=== PATIENT | female | born 1955 | race Hispanic/Latino ===

== ENCOUNTER 2017-01-30 15:16 | Inpatient (IN) | payer OTHER ==
--- NOTE | 2017-01-30 17:20 | C.PDOC ---
History Of Present Illness Patient is a 61 year old female who presents to the ER with a complaint of discoloration of the third right toe and erythema to the dorsal of the right foot for the past 3 days that is worsening. Patient note she is a diabetic and denies any possible injury as the cause. Denies any fever, chills, or pain. Time Seen by Provider: 01/30/17 16:42 Chief Complaint (Nursing): Lower Extremity Problem/Injury History Per: Patient History/Exam Limitations: no limitations Onset/Duration Of Symptoms: Days (3 days) Current Symptoms Are (Timing): Still Present Past Medical History Reviewed: Historical Data, Nursing Documentation, Vital Signs Vital Signs: Last Vital Signs Temp 98.5 F 01/30/17 15:18 Pulse 85 01/30/17 15:18 Resp 17 01/30/17 15:18 BP 157/79 H 01/30/17 15:18 Pulse Ox 99 01/30/17 18:23 - Medical History PMH: HTN, Hyperlipidemia Family History: States: Unknown Family Hx - Social History Hx Alcohol Use: No Hx Substance Use: No - Immunization History Hx Tetanus Toxoid Vaccination: No Hx Influenza Vaccination: Yes Hx Pneumococcal Vaccination: No Review Of Systems Constitutional: Negative for: Fever, Chills Gastrointestinal: Negative for: Nausea, Vomiting Musculoskeletal: Positive for: Other (Erythema to the dorsal of right foot) Skin: Positive for: Other (discoloration of 3rd right toe) Physical Exam - Physical Exam Appears: Non-toxic, No Acute Distress Skin: Normal Color, Warm, Dry Head: Atraumatic, Normacephalic Eye(s): bilateral: Normal Inspection Oral Mucosa: Moist Chest: Symmetrical, No Deformity, No Tenderness Cardiovascular: Rhythm Regular, No Murmur Respiratory: Normal Breath Sounds, No Rales, No Rhonchi, No Wheezing Gastrointestinal/Abdominal: Soft, No Tenderness, No Guarding, No Rebound Extremity: Swelling (right foot on dorsal), Other (Erythema at base of toes, right 3rd toe swollen, purple, and skin peeling.) Neurological/Psych: Oriented x3, Normal Speech, Normal Cognition ED Course And Treatment - Laboratory Results Result Diagrams: 01/30/17 18:07 01/30/17 18:07 O2 Sat by Pulse Oximetry: 99 (Room air) Pulse Ox Interpretation: Normal Progress Note: Blood work, blood culture, labs, and x-ray of the right foot was ordered. IV fluids, Vancocin, and Zosyn were administered. Medical Decision Making Medical Decision Making: several calls made to podiatry resident; await reply. Discussed with Dr Melendez. will admit to her service. ; paging podiatry resident for consult. Disposition Discussed With .: Donna Melendez Doctor Will See Patient In The: Hospital - Disposition Disposition: HOME/ ROUTINE Disposition Time: 18:20 Condition: SERIOUS - Clinical Impression Clinical Impression: Diabetic foot ulcer associated with type 2 diabetes mellitus, Cellulitis of right foot - Scribe Statement The provider has reviewed the documentation as recorded by the Scribe Obie Zavaleta All medical record entries made by the Scribe were at my direction and personally dictated by me. I have reviewed the chart and agree that the record accurately reflects my personal performance of the history, physical exam, medical decision making, and the department course for this patient. I have also personally directed, reviewed, and agree with the discharge instructions and disposition. Decision To Admit - Pt Status Changed To: Hospital Disposition Of: Inpatient - Admit Certification Admit to Inpatient:: After my assessment, the patient will require hospitalization for at least two midnights. This is because of the severity of symptoms shown, intensity of services needed, and/or the medical risk in this patient being treated as an outpatient. - InPatient: Physician Admission Certification: I certify that this patient requires 2 or more midnights of care for the following reason:: antibitoic treamtent for diabetic foot ulcer - . Bed Request Type: Regular Admitting Physician: Donna Melendez Patient Diagnosis: Diabetic foot ulcer associated with type 2 diabetes mellitus, Cellulitis of right foot
[2017-01-30] MEDS ORDERED: Piperacillin/Tazobact 3.375 GM in Sodium Chloride 100 ML IVPB STA (17:24)
[2017-01-30] MEDS ORDERED: Piperacillin/Tazobact 3.375 gm 100 ML IVPB ONE (17:52)
[2017-01-30] MEDS ORDERED: Sodium Chloride 0.9% 1,000 ML ONE (17:52)
[2017-01-30 18:12] LABS: BASO # 0.1 K/uL (0.0-0.2); BASO % 0.7 % (0.0-2.0); EOS # 0.3 K/uL (0.0-0.7); EOS % 2.4 % (0.0-4.0); HEMATOCRIT 36.9 % (34.0-47.0); LYMPH # 1.4 K/uL (1.0-4.3); LYMPH % 11.9 % (20.0-40.0); MEAN CELL VOLUME 85.5 fL (81.0-99.0); MEAN CORPUSCULAR HEMOGLOBIN 28.3 pg (27.0-31.0); MEAN CORPUSCULAR HGB CONC 33.1 g/dL (33.0-37.0); MEAN PLATELET VOLUME 8.5 fL (7.2-11.7); MONO # 0.6 K/uL (0.0-0.8); MONO % 5.4 % (0.0-10.0); RED CELL DISTRIBUTION WIDTH 13.3 % (11.5-14.5); WHITE BLOOD COUNT 11.8 K/uL (4.8-10.8)
[2017-01-30] MEDS: Sodium Chloride 0.9% 1,000 ML IV SCH ×2 (18:15→19:30)
[2017-01-30 18:22] LABS: POTASSIUM 5.2 mmol/L (3.6-5.2)
[2017-01-30 18:24] LABS: BILIRUBIN,TOTAL 0.3 mg/dL (0.2-1.3)
[2017-01-30 18:25] LABS: ALB/GLOB RATIO 1.1 (1.0-2.1); CALCIUM 8.7 mg/dl (8.6-10.4); TOTAL PROTEIN 6.6 g/dL (6.3-8.3)
--- NOTE | 2017-01-30 18:38 | RAD ---
PROCEDURE: Right Foot Radiographs. HISTORY: 3rd toe infection COMPARISON: None available FINDINGS: BONES: Normal. No fracture. No osseous erosion or periosteal reaction. JOINTS: Mild hallux valgus. SOFT TISSUES: Normal. OTHER FINDINGS: None. IMPRESSION: No radiographic evidence of osteomyelitis l
--- NOTE | 2017-01-30 18:52 | CP.PCM.HP ---
History of Present Illness - History of Present Illness History of Present Illness: 61 y.o. with pmh IDDM2 Hypertension PADS lower Extremeties- S/p bypass right Cholesterol CRI came to ER due to pain swelling wound 3rd toe right foot. patient reports itchiness in the are for more than a week, she has been scratching it and skinbecame swollen red and that continue to worsen , patient did not sek medical help- In ER_ the toe 0]is reddish oozing and swollen, patient was admitted for further evaluation and management . patient denies fever, cough GI symptoms PMH as above patient history of uncontrolled DM- secondary to issues of compliance to diet and activity Surgical FEM pop bypass left leg Allergy NKDA Meds Novolog Lantus statin BP meds Present on Admission - Present on Admission Any Indicators Present on Admission: Yes History of DVT/PE: No History of Uncontrolled Diabetes: Yes Urinary Catheter: No Decubitus Ulcer Present: No Review of Systems - Constitutional Constitutional: absent: Chills, Fever, Weakness - EENT Eyes: absent: Change in Vision, Other Visual Disturbances Ears: absent: Ear Pain, Dizziness Nose/Mouth/Throat: absent: Epistaxis, Nasal Congestion, Sinus Pain, Odynophagia , Sore Throat - Breasts Breasts: absent: Pain, Skin Changes - Cardiovascular Cardiovascular: Leg Ulcers. absent: Chest Pain, Dyspnea, Syncope - Respiratory Respiratory: absent: Cough, Dyspnea, Chest Congestion - Gastrointestinal Gastrointestinal: absent: Abdominal Pain, Change in Bowel Habits, Heartburn, Vomiting - Genitourinary Genitourinary: absent: Difficulty Urinating, Dysuria, Urinary Frequency - Reproductive: Female Reproductive:Female: Post Menopausal - Menstruation Menstruation: Post Menopausal - Musculoskeletal Musculoskeletal: absent: Abnormal Gait, Deformity - Integumentary Integumentary: Skin Ulcer (right foot 3rd toe) - Neurological Neurological: absent: Abnormal Hearing, Abnormal Movements, Behavioral Changes, Convulsions - Psychiatric Psychiatric: absent: Behavioral Changes, Confusion, Depression - Endocrine Endocrine: absent: Polydipsia, Polyphagia, Polyuria - Hematologic/Lymphatic Hematologic: absent: Easy Bleeding, Easy Bruising Past Patient History - Infectious Disease Hx of Infectious Diseases: None - Past Social History Smoking Status: Never Smoked - CARDIAC Hx Hypertension: Yes Hx Peripheral Vascular Disease: Yes (PAD LE) - RENAL Hx Chronic Kidney Disease: Yes - ENDOCRINE/METABOLIC Hx Diabetes Mellitus Type 2: Yes - PSYCHIATRIC Hx Substance Use: No - SURGICAL HISTORY Hx Surgeries: Yes (FEM POP bypass left LE) Hx Femoral-Popliteal Bypass Graft: Yes - ANESTHESIA Hx Anesthesia: Yes Hx Anesthesia Reactions: No Meds Allergies/Adverse Reactions: Allergies Allergy/AdvReac Type Severity Reaction Status Date / Time No Known Allergies Allergy Verified 01/30/17 15:17 Physical Exam - Constitutional Appears: Well, Non-toxic - Head Exam Head Exam: ATRAUMATIC, NORMOCEPHALIC - Eye Exam Eye Exam: Normal appearance. absent: Nystagmus - ENT Exam ENT Exam: Mucous Membranes Moist - Neck Exam Neck exam: Positive for: Full Rom. Negative for: Tenderness - Respiratory Exam Respiratory Exam: Clear to Auscultation Bilateral, NORMAL BREATHING PATTERN - Cardiovascular Exam Cardiovascular Exam: REGULAR RHYTHM - GI/Abdominal Exam GI & Abdominal Exam: Normal Bowel Sounds, Soft. absent: Tenderness - Extremities Exam Extremities exam: Positive for: full ROM (with swelling of both feet witl mild edema, with red oozing sore 3rd toe right foot , with poor pulses ) - Back Exam Back exam: FULL ROM. absent: tenderness - Neurological Exam Neurological exam: Alert, Normal Gait, Oriented x3 - Psychiatric Exam Psychiatric exam: Normal Affect, Normal Mood - Skin Skin Exam: Intact (other than the 3rd toe right foot ), Normal Color Results - Vital Signs Recent Vital Signs: Last Vital Signs Temp 98.5 F 01/30/17 15:18 Pulse 85 01/30/17 15:18 Resp 17 01/30/17 15:18 BP 157/79 H 01/30/17 15:18 Pulse Ox 99 01/30/17 18:23 - Labs Result Diagrams: 01/30/17 18:07 01/30/17 18:07 Assessment & Plan - Assessment and Plan (Free Text) Assessment: Patient with PMH uncontrolled IDDM2 - Hypertension PAD s/p FemPOP left CRI admitted for wound infection 3rd toe right foot- with cellulitis, to rule out osteomyelitis will culture start antibiotic according to renal function podiatry consult doppler vascular eval CRI discussed with renal for further evaluation IDDM2- persistently uncontrolled -will do FS , will continue current doses and adjust acoordingly , will start IVF , heart healthy diet Hypertension continue meds and monitor DVT prophy;axis GI prophylaxis
[2017-01-30] MEDS ORDERED: (Lantus) Insulin Glargine, Recombinant SC SCH (22:00)
[2017-01-31 00:10] VITALS: RESP 20
[2017-01-31] MEDS: Piperacill/Tazo 2.25gm in Dex 50 ML IVPB SCH ×3 (01:03→21:41)
[2017-01-31] MEDS: Sodium Chloride 0.9% 1,000 ML IV SCH ×3 (06:08→18:45)
[2017-01-31 07:56] LABS: RBC URINE 6 /hpf (0-3); URINE BACTERIA MOD (<OCC); URINE BILIRUBIN NEGATIVE (NEGATIVE); URINE BLOOD NEGATIVE (NEGATIVE); URINE COLOR Yellow (YELLOW); URINE GLUCOSE (UA) 3+ mg/dL (Normal); URINE KETONE NEGATIVE (NEGATIVE); URINE LEUKOCYTE ESTERASE 2+ Leu/uL (Negative); URINE PROTEIN 2+ mg/dL (NEGATIVE); URINE UROBILINOGEN NORMAL mg/dL (0.2-1.0); WBC CLUMPS FEW /hpf; WBC URINE 117 /hpf (0-5)
[2017-01-31] MEDS: (Novolog) Insulin Aspart, Recombinant 100 u/ml 10 ml vial SC SCH ×2 (08:24→12:35)
--- NOTE | 2017-01-31 09:14 | US ---
PROCEDURE: Ultrasound of the Kidneys HISTORY: ckd for renal size COMPARISON: None available. TECHNIQUE: Sonogram of the kidneys. FINDINGS: RIGHT KIDNEY: Measures: 9.4 x 4.4 x 5.5 cm. Diffusely increased cortical echogenicity. Normal cortical thickness No stone, solid mass lesion or hydronephrosis visualized. LEFT KIDNEY: Measures: 11.1 x 4.4 x 4.5 cm. Diffusely increased cortical echogenicity. No stone, solid mass lesion or hydronephrosis visualized. OTHER FINDINGS: None. IMPRESSION: Diffusely increased renal cortical echogenicity bilaterally consistent with medical renal disease. Otherwise unremarkable.
--- NOTE | 2017-01-31 09:31 | CP.PCM.PN ---
Subjective - Date & Time of Evaluation Date of Evaluation: 01/31/17 Time of Evaluation: 10:00 - Subjective Subjective: patient seen, aware of condition, discussed current findings and management medications clarified patient has no complaints discussed with staff- renal doses of antibiotic PT on case Objective - Vital Signs/Intake and Output Vital Signs (last 24 hours): Temp Pulse Resp BP Pulse Ox 98.0 F 71 20 175/79 H 97 01/31/17 08:00 01/31/17 08:00 01/31/17 08:00 01/31/17 08:00 01/31/17 08:00 Intake and Output: 01/31/17 01/31/17 06:59 18:59 Intake Total 1612 Balance 1612 - Medications Medications: Current Medications Enoxaparin Sodium (Lovenox) 30 mg SC DAILY [facility] Sodium Chloride (Sodium Chloride 0.9%) 1,000 mls @ 100 mls/hr IV .Q10H [facility] Last Admin: 01/31/17 06:08 Dose: Not Given Sodium Chloride (Sodium Chloride 0.9%) 1,000 mls @ 84 mls/hr IV .[id number] [facility] Last Admin: 01/31/17 08:25 Dose: 84 mls/hr Vancomycin HCl 500 mg/ Sodium (Chloride) 100 mls @ 100 mls/hr IVPB Q12H [facility] Last Admin: 01/30/17 22:20 Dose: Not Given Piperacillin Sod/Tazobactam Sod (Zosyn 2.25 Gm Iv Premix) 50 mls @ 100 mls/hr IVPB Q8H [facility] Last Admin: 01/31/17 01:03 Dose: 100 mls/hr Insulin Aspart (Novolog) 60 unit SC ACB [facility] Last Admin: 01/31/17 08:24 Dose: 60 unit Insulin Aspart (Novolog) 54 unit SC ACL [facility] Insulin Glargine (Lantus) 45 unit SC HS [facility] Last Admin: 01/30/17 22:15 Dose: 45 units Losartan Potassium (Cozaar) 50 mg PO DAILY [facility] Rosuvastatin Calcium (Crestor) 10 mg PO HS [facility] Last Admin: 01/30/17 22:17 Dose: 10 mg - Constitutional Appears: Well, Non-toxic - Head Exam Head Exam: ATRAUMATIC, NORMOCEPHALIC - Eye Exam Eye Exam: absent: Nystagmus, Periorbital swelling - ENT Exam ENT Exam: Mucous Membranes Moist - Neck Exam Neck Exam: Full ROM. absent: Tenderness - Respiratory Exam Respiratory Exam: Clear to Ausculation Bilateral, NORMAL BREATHING PATTERN - Cardiovascular Exam Cardiovascular Exam: REGULAR RHYTHM - GI/Abdominal Exam GI & Abdominal Exam: Soft, Normal Bowel Sounds. absent: Tenderness - Extremities Exam Extremities Exam: Full ROM. absent: Pedal Edema (3rd toe right foot lesion is red, but no oozing,had dried up, pulses poor , sensory good ) - Back Exam Back Exam: NORMAL INSPECTION. absent: tenderness - Neurological Exam Neurological Exam: Alert, Awake, Normal Gait, Oriented x3 - Psychiatric Exam Psychiatric exam: Normal Affect, Normal Mood - Skin Skin Exam: Intact (except the 3rd toe lesion ), Normal Color Assessment and Plan - Assessment and Plan (Free Text) Assessment: Patient with IDDM2-persistently uncontrolled due to food and activity non complioance, still uncontrolled , will adjust meds,on heart healthy diet , Diabetic wound cellulitis possible OM- 3rd toe right foot with possible PADS on antibiotic- culture pending- study director consulted, discussion with vascular to invlove, wound care Hypertension not on goal- to adjust medications continue DVT prophylaxis GI prophylaxis PT
[2017-01-31] MEDS ORDERED: (Novolog) Insulin Aspart, Recombinant 100 u/ml 10 ml vial SC SCH (10:00)
[2017-01-31] MEDS: Enoxaparin 30 mg Syringe SC SCH (10:31)
--- NOTE | 2017-01-31 13:27 | NM ---
PROCEDURE: Three-phase bone scan HISTORY: Third toe infection COMPARISON: January 30, 2017. TECHNIQUE: Radionuclide dose: 24.2 Tc99m MDP Site of administration: Left upper extremity venous access Technique: Three-phase bone scan. FINDINGS: Flow component: Increased flow to the right foot, focally prominent 3rd digit right foot. Blood pool component: Accumulation of radionuclide distal tuft 3rd digit Delayed images at 3:00: Retention of radionuclide 3rd digit right foot. IMPRESSION: Positive 3 phase bone scan for acute osseous process distal tuft right 3rd digit.
--- NOTE | 2017-01-31 15:40 | VASCLAB ---
STUDY DESCRIPTION: HISTORY: pvd PRIORS: None. TECHNIQUE: Pulse volume recording waveforms and segmental pressures of bilateral lower extremities at multiple levels were obtained. Ankle Brachial Indices (ABIs) were calculated. Report prepared by DEBORAH White, RVT RIGHT LOWER EXTREMITY: * Brachial artery: Pressure - 166 mmHg. * High thigh: Pressure - Not optimally obtained. PVR waveform - Pulsatile * Low thigh: Pressure -Not optimally obtained. PVR waveform: Pulsatile * Calf: Pressure - 194 mmHg: Ratio - 1.17 PVR waveform: Pulsatile * Posterior tibial Artery: Pressure - 176 mmHg: Ratio - 1.06 PVR waveform: Pulsatile * Dorsalis pedis Artery: Pressure - 173 mmHg: Ratio - 1.03 PVR waveform: Pulsatile Ankle brachial index (SHON): 1.06 LEFT LOWER EXTREMITY: * Brachial artery: Pressure - 156 mmHg. * High thigh: Pressure - Not optimally obtained. PVR waveform - Pulsatile * Low thigh: Pressure - Not optimally obtained. PVR waveform: Pulsatile * Calf: Pressure - 199 mmHg: Ratio - 1.20 PVR waveform: Pulsatile * Posterior tibial Artery: Pressure - 185 mmHg: Ratio - 1.11 PVR waveform: Pulsatile * Dorsalis pedis Artery: Pressure - 179 mmHg: Ratio - 1.08 PVR waveform: Pulsatile Ankle brachial index (SHON): 1.11 OTHER FINDINGS: Right: None. Left: None. IMPRESSION: Right: There was no evidence of hemodynamically significant arterial insufficiency in the right lower extremity. Left: There was no evidence of hemodynamically significant arterial insufficiency in the left lower extremity.
[2017-01-31] MEDS: (Lantus) Insulin Glargine, Recombinant SC SCH (18:20)
--- NOTE | 2017-01-31 19:12 | CP.PCM.CON ---
History of Present Illness - History of Present Illness History of Present Illness: Vascular Surgery Consult Re: PVD, 3rd digit necrosis HPI: 61F presented to the ED C/O swelling, discoloration, and pain of the 3rd R toe and erythema to the dorsum of the R foot x3 days. Progressively worsening. Had itchiness x 1 week and was also scratching the area before this started. Reports she had the same thing on the other side which required sharp debridement. Denies any other trauma. No other c/o. No pain at this time, pt states swelling and erythema has gotten better as well. PMH: Uncontrolled DM, HTN, PAD, HLD, CKD PSH: LLE fem-pop bypass SH: No tobacco, EtOH or Drug use All: NKDA Meds: See MAR. Review of Systems - Review of Systems All systems: reviewed and no additional remarkable complaints except (as per HPI ) Past Patient History - Infectious Disease Hx of Infectious Diseases: None - Past Medical History & Family History Past Medical History?: Yes - Past Social History Smoking Status: Never Smoked - CARDIAC Hx Hypertension: Yes Hx Peripheral Vascular Disease: Yes (PAD LE) - RENAL Hx Chronic Kidney Disease: Yes - ENDOCRINE/METABOLIC Hx Diabetes Mellitus Type 2: Yes - MUSCULOSKELETAL/RHEUMATOLOGICAL Hx Falls: No - PSYCHIATRIC Hx Substance Use: No - SURGICAL HISTORY Hx Surgeries: Yes (FEM POP bypass left LE) Hx Femoral-Popliteal Bypass Graft: Yes - ANESTHESIA Hx Anesthesia: Yes Hx Anesthesia Reactions: No Meds Allergies/Adverse Reactions: Allergies Allergy/AdvReac Type Severity Reaction Status Date / Time No Known Allergies Allergy Verified 01/30/17 15:17 - Medications Medications: Current Medications Enoxaparin Sodium (Lovenox) 30 mg SC DAILY [facility] Last Admin: 01/31/17 10:31 Dose: 30 mg Sodium Chloride (Sodium Chloride 0.9%) 1,000 mls @ 100 mls/hr IV .Q10H [facility] Last Admin: 01/31/17 06:08 Dose: Not Given Sodium Chloride (Sodium Chloride 0.9%) 1,000 mls @ 84 mls/hr IV .[id number] [facility] Last Admin: 01/31/17 08:25 Dose: 84 mls/hr Piperacillin Sod/Tazobactam Sod (Zosyn 2.25 Gm Iv Premix) 50 mls @ 100 mls/hr IVPB Q8H [facility] Last Admin: 01/31/17 10:33 Dose: 100 mls/hr Vancomycin HCl 500 mg/ Sodium (Chloride) 100 mls @ 100 mls/hr IVPB TTS [facility] Insulin Aspart (Novolog) 60 unit SC ACB [facility] Last Admin: 01/31/17 08:24 Dose: 60 unit Insulin Aspart (Novolog) 54 unit SC ACL [facility] Last Admin: 01/31/17 12:35 Dose: Not Given Insulin Glargine (Lantus) 50 unit SC Q24H [facility] Losartan Potassium (Cozaar) 100 mg PO DAILY [facility] Pantoprazole Sodium (Protonix Ec Tab) 40 mg PO DAILY [facility] Rosuvastatin Calcium (Crestor) 10 mg PO HS [facility] Last Admin: 01/30/17 22:17 Dose: 10 mg Sodium Hypochlorite (Dakins Solution 0.125%) 1 appl TOP DAILY [facility] Physical Exam - Constitutional Appears: Non-toxic, No Acute Distress - Head Exam Head Exam: ATRAUMATIC, NORMOCEPHALIC - Eye Exam Eye Exam: EOMI. absent: Scleral icterus - ENT Exam ENT Exam: Mucous Membranes Moist Additional comments: Trachea midline - Respiratory Exam Respiratory Exam: NORMAL BREATHING PATTERN. absent: Respiratory Distress - Cardiovascular Exam Cardiovascular Exam: RRR. absent: Tachycardia - GI/Abdominal Exam GI & Abdominal Exam: Soft. absent: Distended, Tenderness - Extremities Exam Extremities exam: Positive for: pedal edema (b/l). Negative for: calf tenderness, tenderness Additional comments: R 3rd toe, necrotic tissue, mild erythema on dorsum - Back Exam Back exam: absent: CVA tenderness (L), CVA tenderness (R) - Neurological Exam Neurological exam: Alert, Oriented x3 - Psychiatric Exam Psychiatric exam: Normal Affect, Normal Mood - Skin Skin Exam: Dry, Warm Results - Vital Signs Recent Vital Signs: Last Vital Signs Temp 98.0 F 01/31/17 16:07 Pulse 72 01/31/17 16:07 Resp 20 01/31/17 16:07 BP 136/64 01/31/17 16:07 Pulse Ox 98 01/31/17 16:07 - Labs Result Diagrams: 01/30/17 18:07 01/30/17 18:07 Labs: Laboratory Results - last 24 hr 01/30/17 01/31/17 01/31/17 21:46 02:10 07:04 POC Glucose (mg/dL) 322 H 334 H 312 H Hemoglobin A1c Urine Color Urine Clarity Urine pH Ur Specific [place] Urine Protein Urine Glucose (UA) Urine Ketones Urine Blood Urine Nitrate Urine Bilirubin Urine Urobilinogen Ur Leukocyte Esterase Urine WBC (Auto) Urine RBC (Auto) Urine WBC Clumps (Auto) Ur Squamous Epith Cells Urine Bacteria Random Vancomycin NASIMA 6 Profile NASIMA Titer NASIMA Pattern Complement C3 Complement C4 Hep Bs Antigen Hep Bs Antibody Hep B Core IgM Ab Hepatitis C Antibody 01/31/17 01/31/17 01/31/17 07:17 07:29 10:00 POC Glucose (mg/dL) Hemoglobin A1c 8.5 H Urine Color Yellow Urine Clarity Hazy Urine pH 6.0 Ur Specific [place] 1.014 Urine Protein 2+ H Urine Glucose (UA) 3+ H Urine Ketones Negative Urine Blood Negative Urine Nitrate Positive H Urine Bilirubin Negative Urine Urobilinogen Normal Ur Leukocyte Esterase 2+ H Urine WBC (Auto) 117 H Urine RBC (Auto) 6 H Urine WBC Clumps (Auto) Few H Ur Squamous Epith Cells < 1 Urine Bacteria Mod H Random Vancomycin 9.68 NASIMA 6 Profile Positive H NASIMA Titer 1:80 H NASIMA Pattern Speckled H Complement C3 147.0 Complement C4 59.2 H Hep Bs Antigen Negative Hep Bs Antibody Negative Hep B Core IgM Ab Negative Hepatitis C Antibody Negative 01/31/17 11:12 POC Glucose (mg/dL) 99 Hemoglobin A1c Urine Color Urine Clarity Urine pH Ur Specific [place] Urine Protein Urine Glucose (UA) Urine Ketones Urine Blood Urine Nitrate Urine Bilirubin Urine Urobilinogen Ur Leukocyte Esterase Urine WBC (Auto) Urine RBC (Auto) Urine WBC Clumps (Auto) Ur Squamous Epith Cells Urine Bacteria Random Vancomycin NASIMA 6 Profile NASIMA Titer NASIM[place] Pattern Complement C3 Complement C4 Hep Bs Antigen Hep Bs Antibody Hep B Core IgM Ab Hepatitis C Antibody - Imaging and Cardiology Arterial US Status: Image reviewed by me, Report reviewed by me Assessment & Plan - Assessment and Plan (Free Text) Assessment: 61F with R 3rd toe necrosis Plan: Arterial duplex ordered Will F/U results May need debridement of toe eventually. D/W Dr. Reena Grant PGY3
--- NOTE | 2017-01-31 19:37 | CP.PCM.CON ---
History of Present Illness - History of Present Illness History of Present Illness: 61F presented to the ED C/O swelling, discoloration, and pain of the 3rd R toe and erythema to the dorsum of the R foot x3 days. Progressively worsening. Had itchiness x 1 week and was also scratching the area before this started. Reports she had the same thing on the other side which required sharp debridement. Denies any other trauma. PMH: Uncontrolled DM, HTN, PAD, HLD, CKD PSH: LLE fem-pop bypass SH: No tobacco, EtOH or Drug use All: NKDA Meds: See MAR. Review of Systems - Constitutional Constitutional: As Per HPI, Malaise - EENT Eyes: absent: As Per HPI, Blind Spots, Blurred Vision, Change in Vision, Decreased Night Vision, Diplopia, Discharge, Dry Eye, Exophthalmos, Floaters, Irritation, Itchy Eyes, Loss of Peripheral Vision, Pain, Photophobia, Requires Corrective Lenses, Sees Flashes, Spots in Vision, Tunnel Vision, Other Visual Disturbances, Loss of Vision, Other Ears: absent: As Per HPI, Decreased Hearing, Ear Discharge, Ear Pain, Tinnitus, Abnormal Hearing, Disequilibrium, Dizziness, Other Nose/Mouth/Throat: absent: As Per HPI, Epistaxis, Nasal Congestion, Nasal Discharge, Nasal Obstruction, Nasal Trauma, Nose Pain, Post Nasal Drip, Sinus Pain, Sinus Pressure, Bleeding Gums, Change in Voice, Dental Pain, Dry Mouth, Dysphagia, Halitosis, Hoarsness, Lip Swelling, Mouth Lesions, Mouth Pain, Odynophagia, Sore Throat, Throat Swelling, Tongue Swelling, Facial Pain, Neck Pain, Neck Mass, Other - Breasts Breasts: absent: As Per HPI, Change in Shape, Mass, Pain, Nipple Discharge, Nipple Inversion, Skin Changes, Swelling, Other - Cardiovascular Cardiovascular: absent: As Per HPI, Acrocyanosis, Chest Pain, Chest Pain at Rest , Chest Pain with Activity, Claudication, Diaphoresis, Dyspnea, Dyspnea on Exertion, Edema, Irregular Heart Rhythm, Pain Radiating to Arm/Neck/Jaw, Leg Edema, Leg Ulcers, Lightheadedness, Orthopnea, Palpitations, Paroxysmal Nocturnal Dyspnea, Pedal Edema, Radiating Pain, Rapid Heart Rate, Slow Heart Rate, Syncope, Other - Respiratory Respiratory: absent: As Per HPI, Cough, Dyspnea, Hemoptysis, Dyspnea on Exertion , Wheezing, Snoring, Stridor, Pain on Inspiration, Chest Congestion, Excessive Mucous Production, Change in Mucous Color, Pain with Coughing, Other - Gastrointestinal Gastrointestinal: absent: As Per HPI, Abdominal Pain, Belching, Bloating, Change in Bowel Habits, Change in Stool Character, Coffee Ground Emesis, Constipation, Cramping, Diarrhea, Dyspepsia, Dysphagia, Early Satiety, Excessive Flatus, Fecal Incontinence, Heartburn, Hematemesis, Hematochezia, Loose Stools, Melena, Nausea, Odynophagia, Temesmus, Vomiting, Other - Genitourinary Genitourinary: absent: As Per HPI, Change in Urinary Stream, Difficulty Urinating, Dysuria, Flank Pain, Hematuria, Pyuria, Nocturia, Urinary Incontinence, Urinary Frequency, Urinary Hesitance, Urinary Urgency, Voiding Freq/Small Amts, Freq UTI, Hx Renal/Bladder Calculi, Hx /Renal Surgery, Bladder Distension, Other - Reproductive: Female Reproductive:Female: absent: As Per HPI, Amenorrhea, Amenorrhea/ Control, Currently Menstual, Cycle <21 Days, Cycle >35 Days, Cycle Variable, Menses 1-7 Days, Menses >/= 8 Days, Menses Variable, Cycle > 4 Weeks Between, No Menses for 6 Months, Heavy Menses, Light Menses, Normal Menses, Spotting Between Cycles , S/P Hysterectomy, Menopausal, Post Menopausal, Premenarche, Abnormal Vaginal Bleeding, Dysmenorrhea, Dyspareunia, Genital Lesions, Genital Pruritis, Pelvic Pain, Prolapse Symptoms, Sexual Dysfunction, Vaginal Discharge, Vaginal Dryness , Vaginal Odor, Vaginal Pruritis, Other - Menstruation Menstruation: absent: As Per HPI, Amenorrhea, Amenorrhea/ Control, Currently Menstual, Cycle <21 Days, Cycle >35 Days, Cycle Variable, Menses 1-7 Days, Menses >/= 8 Days, Menses Variable, Cycle > 4 Weeks Between, No Menses for 6 Months, Heavy Menses, Light Menses, Normal Menses, Spotting Between Cycles , S/P Hysterectomy, Menopausal, Post Menopausal, Premenarche, Abnormal Vaginal Bleeding, Dysmenorrhea, Other - Musculoskeletal Musculoskeletal: As Per HPI - Integumentary Integumentary: As Per HPI, Skin Pain, Wounds - Neurological Neurological: Numbness - Psychiatric Psychiatric: absent: As Per HPI, Abnormal Sleep Pattern, Anhedonia, Anxiety, Auditory Hallucinations, Behavioral Changes, Change in Appetite, Change in Libido, Confusion, Depression, Difficulty Concentrating, Hallucinations, Homicidal Ideation, Hopelessness, Irritability, Memory Loss, Mood Swings, Panic Attacks, Paranoia, Suicidal Ideation, Visual Hallucinations, Tactile Hallucinations, Other - Endocrine Endocrine: absent: As Per HPI, Change in Body Appearance, Change in Libido, Cold Intolorance, Deepening of Voice, Excessive Sweating, Fatigue, Flushing, Heat Intolorance, Increase in Ring/Shoe/Hat Size, Palpitations, Polydipsia, Polyphagia, Polyuria, Other - Hematologic/Lymphatic Hematologic: absent: As Per HPI, Easy Bleeding, Easy Bruising, Lymphadenopathy, Other Past Patient History - Infectious Disease Hx of Infectious Diseases: None - Past Medical History & Family History Past Medical History?: Yes - Past Social History Smoking Status: Never Smoked - CARDIAC Hx Hypertension: Yes Hx Peripheral Vascular Disease: Yes (PAD LE) - RENAL Hx Chronic Kidney Disease: Yes - ENDOCRINE/METABOLIC Hx Diabetes Mellitus Type 2: Yes - MUSCULOSKELETAL/RHEUMATOLOGICAL Hx Falls: No - PSYCHIATRIC Hx Substance Use: No - SURGICAL HISTORY Hx Surgeries: Yes (FEM POP bypass left LE) Hx Femoral-Popliteal Bypass Graft: Yes - ANESTHESIA Hx Anesthesia: Yes Hx Anesthesia Reactions: No Meds Allergies/Adverse Reactions: Allergies Allergy/AdvReac Type Severity Reaction Status Date / Time No Known Allergies Allergy Verified 01/30/17 15:17 - Medications Medications: Current Medications Enoxaparin Sodium (Lovenox) 30 mg SC DAILY [facility] Last Admin: 01/31/17 10:31 Dose: 30 mg Sodium Chloride (Sodium Chloride 0.9%) 1,000 mls @ 100 mls/hr IV .Q10H [facility] Last Admin: 01/31/17 06:08 Dose: Not Given Sodium Chloride (Sodium Chloride 0.9%) 1,000 mls @ 84 mls/hr IV .[id number] [facility] Last Admin: 01/31/17 08:25 Dose: 84 mls/hr Piperacillin Sod/Tazobactam Sod (Zosyn 2.25 Gm Iv Premix) 50 mls @ 100 mls/hr IVPB Q8H [facility] Last Admin: 01/31/17 10:33 Dose: 100 mls/hr Vancomycin HCl 500 mg/ Sodium (Chloride) 100 mls @ 100 mls/hr IVPB TTS [facility] Insulin Aspart (Novolog) 60 unit SC ACB [facility] Last Admin: 01/31/17 08:24 Dose: 60 unit Insulin Aspart (Novolog) 54 unit SC ACL [facility] Last Admin: 01/31/17 12:35 Dose: Not Given Insulin Glargine (Lantus) 50 unit SC Q24H [facility] Losartan Potassium (Cozaar) 100 mg PO DAILY [facility] Pantoprazole Sodium (Protonix Ec Tab) 40 mg PO DAILY [facility] Rosuvastatin Calcium (Crestor) 10 mg PO HS [facility] Last Admin: 01/30/17 22:17 Dose: 10 mg Sodium Hypochlorite (Dakins Solution 0.125%) 1 appl TOP DAILY [facility] Physical Exam - Constitutional Appears: Non-toxic, Chronically Ill - Head Exam Head Exam: ATRAUMATIC, NORMAL INSPECTION, NORMOCEPHALIC - Eye Exam Eye Exam: PERRL. absent: Scleral icterus - ENT Exam ENT Exam: Mucous Membranes Dry, Normal External Ear Exam, Normal Oropharynx - Neck Exam Neck exam: Negative for: Lymphadenopathy, Thyromegaly - Respiratory Exam Respiratory Exam: Decreased Breath Sounds, Rhonchi - Cardiovascular Exam Cardiovascular Exam: REGULAR RHYTHM, +S1, +S2 - GI/Abdominal Exam GI & Abdominal Exam: Diminished Bowel Sounds, Soft. absent: Tenderness - Rectal Exam Rectal Exam: Deferred - Exam Exam: NORMAL INSPECTION - Extremities Exam Extremities exam: Positive for: pedal pulses present. Negative for: calf tenderness, pedal edema, tenderness - Back Exam Back exam: absent: CVA tenderness (L), CVA tenderness (R), paraspinal tenderness - Neurological Exam Neurological exam: Alert, CN II-XII Intact, Oriented x3, Reflexes Normal - Psychiatric Exam Psychiatric exam: Normal Mood - Skin Skin Exam: Dry, Intact Results - Vital Signs Recent Vital Signs: Last Vital Signs Temp 98.0 F 01/31/17 16:07 Pulse 72 01/31/17 16:07 Resp 20 01/31/17 16:07 BP 136/64 01/31/17 16:07 Pulse Ox 98 01/31/17 16:07 - Labs Result Diagrams: 01/30/17 18:07 01/30/17 18:07 Labs: Laboratory Results - last 24 hr 03/01/31/17 01/31/17 21:46 02:10 07:04 POC Glucose (mg/dL) 322 H 334 H 312 H Hemoglobin A1c Urine Color Urine Clarity Urine pH Ur Specific [place] Urine Protein Urine Glucose (UA) Urine Ketones Urine Blood Urine Nitrate Urine Bilirubin Urine Urobilinogen Ur Leukocyte Esterase Urine WBC (Auto) Urine RBC (Auto) Urine WBC Clumps (Auto) Ur Squamous Epith Cells Urine Bacteria Random Vancomycin NASIMA 6 Profile NASIMA Titer NASIMA Pattern Complement C3 Complement C4 Hep Bs Antigen Hep Bs Antibody Hep B Core IgM Ab Hepatitis C Antibody 01/31/17 01/31/17 01/31/17 07:17 07:29 10:00 POC Glucose (mg/dL) Hemoglobin A1c 8.5 H Urine Color Yellow Urine Clarity Hazy Urine pH 6.0 Ur Specific [place] 1.014 Urine Protein 2+ H Urine Glucose (UA) 3+ H Urine Ketones Negative Urine Blood Negative Urine Nitrate Positive H Urine Bilirubin Negative Urine Urobilinogen Normal Ur Leukocyte Esterase 2+ H Urine WBC (Auto) 117 H Urine RBC (Auto) 6 H Urine WBC Clumps (Auto) Few H Ur Squamous Epith Cells < 1 Urine Bacteria Mod H Random Vancomycin 9.68 NASIMA 6 Profile Positive H NASIMA Titer 1:80 H NASIMA Pattern Speckled H Complement C3 147.0 Complement C4 59.2 H Hep Bs Antigen Negative Hep Bs Antibody Negative Hep B Core IgM Ab Negative Hepatitis C Antibody Negative 01/31/17 11:12 POC Glucose (mg/dL) 99 Hemoglobin A1c Urine Color Urine Clarity Urine pH Ur Specific [place] Urine Protein Urine Glucose (UA) Urine Ketones Urine Blood Urine Nitrate Urine Bilirubin Urine Urobilinogen Ur Leukocyte Esterase Urine WBC (Auto) Urine RBC (Auto) Urine WBC Clumps (Auto) Ur Squamous Epith Cells Urine Bacteria Random Vancomycin NASIMA 6 Profile NASIMA Titer [facility] Pattern Complement C3 Complement C4 Hep Bs Antigen Hep Bs Antibody Hep B Core IgM Ab Hepatitis C Antibody Assessment & Plan (1) Cellulitis of right foot Status: Acute (2) Diabetic foot ulcer associated with type 2 diabetes mellitus Status: Acute (3) Obesity (BMI 30.0-34.9) Status: Acute (4) CKD (chronic kidney disease) requiring chronic dialysis Status: Acute - Assessment and Plan (Free Text) Assessment: await cultures cont iv rx recc : MRI foot to r/o OM / Abscess Vascular eval/ arterial dopplers if not done yet
--- NOTE | 2017-01-31 20:35 | CP.PCM.CON ---
History of Present Illness - History of Present Illness History of Present Illness: pt seen and examined, full consult is dictated #[id number] 1. renal failure , ramu on ckd vs ckd-4 r/o dm nephropathy and /or htn nephrosclerosis 2. uti 3. htn 4. dm 5. r/o OM of rt 3 rd toe check urine c/s c/w iv abx, f/u podiatry and surgery check pth intact , ds-dna ab, lord ab 24 hr up,cr cr cl, once uti is cleared Past Patient History - Infectious Disease Hx of Infectious Diseases: None - Past Medical History & Family History Past Medical History?: Yes - Past Social History Smoking Status: Never Smoked - CARDIAC Hx Hypertension: Yes Hx Peripheral Vascular Disease: Yes (PAD LE) - RENAL Hx Chronic Kidney Disease: Yes - ENDOCRINE/METABOLIC Hx Diabetes Mellitus Type 2: Yes - MUSCULOSKELETAL/RHEUMATOLOGICAL Hx Falls: No - PSYCHIATRIC Hx Substance Use: No - SURGICAL HISTORY Hx Surgeries: Yes (FEM POP bypass left LE) Hx Femoral-Popliteal Bypass Graft: Yes - ANESTHESIA Hx Anesthesia: Yes Hx Anesthesia Reactions: No Meds Allergies/Adverse Reactions: Allergies Allergy/AdvReac Type Severity Reaction Status Date / Time No Known Allergies Allergy Verified 01/30/17 15:17 - Medications Medications: Current Medications Enoxaparin Sodium (Lovenox) 30 mg SC DAILY [facility] Last Admin: 01/31/17 10:31 Dose: 30 mg Sodium Chloride (Sodium Chloride 0.9%) 1,000 mls @ 100 mls/hr IV .Q10H [facility] Last Admin: 01/31/17 06:08 Dose: Not Given Sodium Chloride (Sodium Chloride 0.9%) 1,000 mls @ 84 mls/hr IV .[id number] [facility] Last Admin: 01/31/17 08:25 Dose: 84 mls/hr Piperacillin Sod/Tazobactam Sod (Zosyn 2.25 Gm Iv Premix) 50 mls @ 100 mls/hr IVPB Q8H [facility] Last Admin: 01/31/17 10:33 Dose: 100 mls/hr Vancomycin HCl 500 mg/ Sodium (Chloride) 100 mls @ 100 mls/hr IVPB TTS [facility] Insulin Aspart (Novolog) 60 unit SC ACB [facility] Last Admin: 01/31/17 08:24 Dose: 60 unit Insulin Aspart (Novolog) 54 unit SC ACL [facility] Last Admin: 01/31/17 12:35 Dose: Not Given Insulin Glargine (Lantus) 50 unit SC Q24H [facility] Losartan Potassium (Cozaar) 100 mg PO DAILY [facility] Pantoprazole Sodium (Protonix Ec Tab) 40 mg PO DAILY [facility] Rosuvastatin Calcium (Crestor) 10 mg PO HS [facility] Last Admin: 01/30/17 22:17 Dose: 10 mg Sodium Hypochlorite (Dakins Solution 0.125%) 1 appl TOP DAILY [facility] Results - Vital Signs Recent Vital Signs: Last Vital Signs Temp 98.0 F 01/31/17 16:07 Pulse 72 01/31/17 16:07 Resp 20 01/31/17 16:07 BP 136/64 01/31/17 16:07 Pulse Ox 98 01/31/17 16:07 - Labs Result Diagrams: 01/30/17 18:07 01/30/17 18:07 Labs: Laboratory Results - last 24 hr 01/30/17 01/31/17 01/31/17 21:46 02:10 07:04 POC Glucose (mg/dL) 322 H 334 H 312 H Hemoglobin A1c Urine Color Urine Clarity Urine pH Ur Specific [place] Urine Protein Urine Glucose (UA) Urine Ketones Urine Blood Urine Nitrate Urine Bilirubin Urine Urobilinogen Ur Leukocyte Esterase Urine WBC (Auto) Urine RBC (Auto) Urine WBC Clumps (Auto) Ur Squamous Epith Cells Urine Bacteria Random Vancomycin [facility] 6 Profile [facility] Titer [facility] Pattern Complement C3 Complement C4 Hep Bs Antigen Hep Bs Antibody Hep B Core IgM Ab Hepatitis C Antibody 01/31/17 01/31/17 01/31/17 07:17 07:29 10:00 POC Glucose (mg/dL) Hemoglobin A1c 8.5 H Urine Color Yellow Urine Clarity Hazy Urine pH 6.0 Ur Specific [place] 1.014 Urine Protein 2+ H Urine Glucose (UA) 3+ H Urine Ketones Negative Urine Blood Negative Urine Nitrate Positive H Urine Bilirubin Negative Urine Urobilinogen Normal Ur Leukocyte Esterase 2+ H Urine WBC (Auto) 117 H Urine RBC (Auto) 6 H Urine WBC Clumps (Auto) Few H Ur Squamous Epith Cells < 1 Urine Bacteria Mod H Random Vancomycin 9.68 [facility] 6 Profile Positive H [facility] Titer 1:80 H [facility] Pattern Speckled H Complement C3 147.0 Complement C4 59.2 H Hep Bs Antigen Negative Hep Bs Antibody Negative Hep B Core IgM Ab Negative Hepatitis C Antibody Negative 01/31/17 11:12 POC Glucose (mg/dL) 99 Hemoglobin A1c Urine Color Urine Clarity Urine pH Ur Specific [place] Urine Protein Urine Glucose (UA) Urine Ketones Urine Blood Urine Nitrate Urine Bilirubin Urine Urobilinogen Ur Leukocyte Esterase Urine WBC (Auto) Urine RBC (Auto) Urine WBC Clumps (Auto) Ur Squamous Epith Cells Urine Bacteria Random Vancomycin [facility] 6 Profile NAS[facility] Titer [facility] Pattern Complement C3 Complement C4 Hep Bs Antigen Hep Bs Antibody Hep B Core IgM Ab Hepatitis C Antibody
--- NOTE | 2017-01-31 21:05 | CP.PCM.CON ---
History of Present Illness - History of Present Illness History of Present Illness: Pt seen at bedside for eval of right 3rd digit ulcer/edema. Pt is getting a bone scan done. Consult written for Dr. Valles and ID-Dr. Dawson. Wound care orders written. Will await vasc studies and bone scan results and will then decide on tx plan. Past Patient History - Infectious Disease Hx of Infectious Diseases: None - Past Medical History & Family History Past Medical History?: Yes - Past Social History Smoking Status: Never Smoked - CARDIAC Hx Hypertension: Yes Hx Peripheral Vascular Disease: Yes (PAD LE) - RENAL Hx Chronic Kidney Disease: Yes - ENDOCRINE/METABOLIC Hx Diabetes Mellitus Type 2: Yes - MUSCULOSKELETAL/RHEUMATOLOGICAL Hx Falls: No - PSYCHIATRIC Hx Substance Use: No - SURGICAL HISTORY Hx Surgeries: Yes (FEM POP bypass left LE) Hx Femoral-Popliteal Bypass Graft: Yes - ANESTHESIA Hx Anesthesia: Yes Hx Anesthesia Reactions: No Meds Allergies/Adverse Reactions: Allergies Allergy/AdvReac Type Severity Reaction Status Date / Time No Known Allergies Allergy Verified 01/30/17 15:17 - Medications Medications: Current Medications Enoxaparin Sodium (Lovenox) 30 mg SC DAILY [facility] Last Admin: 01/31/17 10:31 Dose: 30 mg Sodium Chloride (Sodium Chloride 0.9%) 1,000 mls @ 100 mls/hr IV .Q10H [facility] Last Admin: 01/31/17 06:08 Dose: Not Given Sodium Chloride (Sodium Chloride 0.9%) 1,000 mls @ 84 mls/hr IV .[id number] [facility] Last Admin: 01/31/17 08:25 Dose: 84 mls/hr Piperacillin Sod/Tazobactam Sod (Zosyn 2.25 Gm Iv Premix) 50 mls @ 100 mls/hr IVPB Q8H [facility] Last Admin: 01/31/17 10:33 Dose: 100 mls/hr Vancomycin HCl 500 mg/ Sodium (Chloride) 100 mls @ 100 mls/hr IVPB TTS [facility] Insulin Aspart (Novolog) 60 unit SC ACB [facility] Last Admin: 01/31/17 08:24 Dose: 60 unit Insulin Aspart (Novolog) 54 unit SC ACL [facility] Last Admin: 01/31/17 12:35 Dose: Not Given Insulin Glargine (Lantus) 50 unit SC Q24H [facility] Losartan Potassium (Cozaar) 100 mg PO DAILY [facility] Pantoprazole Sodium (Protonix Ec Tab) 40 mg PO DAILY [facility] Rosuvastatin Calcium (Crestor) 10 mg PO HS [facility] Last Admin: 01/30/17 22:17 Dose: 10 mg Sodium Hypochlorite (Dakins Solution 0.125%) 1 appl TOP DAILY [facility] Results - Vital Signs Recent Vital Signs: Last Vital Signs Temp 98.0 F 01/31/17 16:07 Pulse 72 01/31/17 16:07 Resp 20 01/31/17 16:07 BP 136/64 01/31/17 16:07 Pulse Ox 98 01/31/17 16:07 - Labs Result Diagrams: 01/30/17 18:07 01/30/17 18:07 Labs: Laboratory Results - last 24 hr 01/30/17 01/31/17 01/31/17 21:46 02:10 07:04 POC Glucose (mg/dL) 322 H 334 H 312 H Hemoglobin A1c Urine Color Urine Clarity Urine pH Ur Specific [place] Urine Protein Urine Glucose (UA) Urine Ketones Urine Blood Urine Nitrate Urine Bilirubin Urine Urobilinogen Ur Leukocyte Esterase Urine WBC (Auto) Urine RBC (Auto) Urine WBC Clumps (Auto) Ur Squamous Epith Cells Urine Bacteria Random Vancomycin [facility] 6 Profile [facility] Titer [facility] Pattern Complement C3 Complement C4 Hep Bs Antigen Hep Bs Antibody Hep B Core IgM Ab Hepatitis C Antibody 01/31/17 01/31/17 01/31/17 07:17 07:29 10:00 POC Glucose (mg/dL) Hemoglobin A1c 8.5 H Urine Color Yellow Urine Clarity Hazy Urine pH 6.0 Ur Specific [place] 1.014 Urine Protein 2+ H Urine Glucose (UA) 3+ H Urine Ketones Negative Urine Blood Negative Urine Nitrate Positive H Urine Bilirubin Negative Urine Urobilinogen Normal Ur Leukocyte Esterase 2+ H Urine WBC (Auto) 117 H Urine RBC (Auto) 6 H Urine WBC Clumps (Auto) Few H Ur Squamous Epith Cells < 1 Urine Bacteria Mod H Random Vancomycin 9.68 [facility] 6 Profile Positive H [facility] Titer 1:80 H [facility] Pattern Speckled H Complement C3 147.0 Complement C4 59.2 H Hep Bs Antigen Negative Hep Bs Antibody Negative Hep B Core IgM Ab Negative Hepatitis C Antibody Negative 01/31/17 11:12 POC Glucose (mg/dL) 99 Hemoglobin A1c Urine Color Urine Clarity Urine pH Ur Specific [place] Urine Protein Urine Glucose (UA) Urine Ketones Urine Blood Urine Nitrate Urine Bilirubin Urine Urobilinogen Ur Leukocyte Esterase Urine WBC (Auto) Urine RBC (Auto) Urine WBC Clumps (Auto) Ur Squamous Epith Cells Urine Bacteria Random Vancomycin [facility] 6 Profile [facility] Titer [facility] Pattern Complement C3 Complement C4 Hep Bs Antigen Hep Bs Antibody Hep B Core IgM Ab Hepatitis C Antibody
[2017-02-01] MEDS: Sodium Chloride 0.9% 1,000 ML IV SCH ×6 (00:45→19:30)
[2017-02-01] MEDS: Piperacill/Tazo 2.25gm in Dex 50 ML IVPB SCH ×3 (01:51→18:34)
--- NOTE | 2017-02-01 02:48 | CON ---
DATE: 01/31/2017 RENAL CONSULTATION The patient is located in room 370, bed A. REQUESTED BY: Dr. Donna Melendez MD REASON FOR RENAL CONSULTATION: Increased BUN, creatinine and UTI and right third toe infection. HISTORY OF PRESENT ILLNESS: The patient is a 61-year-old elderly obese female with a past medical history significant for diabetes for about 16 years and hypertension for 16 years, hyperlipidemia, who was admitted with chief complaints of accidental injury to the right, 3rd toe with a nail by herself and started turning black and pain. The patient decided to come to the hospital. The patient was found to have increased BUN and creatinine, hyperkalemia and also urinalysis consistent with a UTI. The patient is being treated for possible UTI. The patient is not in acute distress. Denies any headache, dizziness. Denies any chest pain, palpitation. Denies any fever, cough, no nausea, no vomiting, no diarrhea, no abdominal pain. The patient does complain of swelling of the legs. PAST MEDICAL HISTORY: Significant for diabetes for 16 years, hypertension for 16 years, hyperlipidemia and CVA x 2, the last one about 8 years ago and the one previous one prior to that one about 10 years ago. SURGICAL HISTORY: Left leg bypass. SOCIAL HISTORY: Denies any smoking, denies any alcohol or drug abuse. PERSONAL HISTORY: and she has 2 children, 1 at age 43 years secondary to colon cancer complication. Her mother with colon CA and father of lung cancer. He was a smoker and his sister had breast cancer. CURRENT MEDICATIONS: Include losartan 100 mg daily, Crestor 10 mg at bedtime, Lantus 50 units subQ q. 24 hours, Lovenox 30 mg subQ daily, insulin aspart, NovoLog 60 units subQ ACB and 54 units subQ ACL, IV fluids, normal saline at 84 mL per hour, vancomycin 500 mg 3 times a week, Zosyn 2.25 grams q. 8 hours, status post vancomycin 1 gram x 1 yesterday, that is on 01/30/2017. ALLERGIES: No known drug allergies. REVIEW OF SYSTEMS: Significant for discoloration of the right third toe and also swelling of the legs. All other review of systems are reviewed and are negative. PHYSICAL EXAMINATION: VITAL SIGNS: Blood pressure 136/64, pulse 72, respirations 20, temperature 98, saturation 98%, height 5 feet 4 inches and weight is 189 pounds. GENERAL: The patient is a 61-year-old obese female, well built, well nourished, not in distress. HEENT: Pupils normal, reactive to light and accommodation. Conjunctivae pink. Sclerae anicteric. Tongue is moist. NECK: Trachea midline. LUNGS: Symmetric on both sides. Bilateral breath sounds present. Clear on auscultation. CARDIOVASCULAR: [place] in the fifth intercostal space midclavicular line. S1 and S2 audible. No murmur or gallop. ABDOMEN: Normal in appearance, soft, tympanic. No guarding, no rigidity. No hepatosplenomegaly. CENTRAL NERVOUS SYSTEM: The patient is alert, awake, oriented x 3, nonfocal on examination. Cranial nerves II-XII grossly intact. Sensory and motor system is within normal limits. EXTREMITIES: Status post left lower extremity bypass. The patient has 2+ edema in both lower extremities and dorsalis pedis pulses are feeble on the right side. The patient also has a discoloration of the right third toe and slightly on the second toe. LABORATORY DATA: Include as follows: As of 01/22/2017, WBC 11.8, hemoglobin 12.2, hematocrit is 36.9, platelets 353. Sodium 139, potassium 5.2, chloride 99 , CO2 26, BUN 41, creatinine 2.7, glucose 155, calcium 8.7, total bilirubin 0.3 , AST 22, ALT 22, alkaline phosphatase 194, total protein 6.6. Urinalysis: Yellow, hazy, pH 6 and specific gravity 10/14 and protein 2+, glucose 3+, ketones negative, blood negative, nitrites positive and bilirubin negative, urobilinogen normal. Leukocyte esterase 2+, WBC 117, RBC 6 and WBC clumps few. Squamous have been less than 1, bacteria moderate. Other laboratory data C3 is 147, C4 is 52.9, hepatitis B surface antigen negative, surface antibody negative. Core antibody IgM is negative and hep C antibody is negative. Other reports lower extremity ultrasound as of 01/31/2017, impression right: There was no evidence of hemodynamically significant arterial insufficiency in the right lower extremity. Left, there was no evidence of hemodynamically significant arterial insufficiency in the left lower extremity. Bone scan as of 01/31/2017, positive 3 phase bone scan for acute osseous process distal tuft, the right third digit. Renal ultrasound as of 01/30/2017, the right kidney is 9.4 x 4.4 x 5.5 cm. The right kidney is 9.4 x 4.4 x 5.5 cm and left kidney 11.1 x 4.4 x 4.5 cm, diffusely increased cortical echogenicity. IMPRESSION: Diffusely increased cortical echogenicity bilaterally consistent with medical renal disease, otherwise unremarkable. X-ray of the foot as of 01/30, no radiographic evidence of osteomyelitis and no cultures are available at this time pending. SUMMARY: The patient is a 61-year-old elderly female with a past medical history significant for hypertension, diabetes, CVA, peripheral vascular disease , status post left lower extremity bypass, was admitted with a discoloration of the right 3rd toe for the last 1 week after an accident and injury at the toe by her nail and the patient was found to have increased BUN and creatinine. Urinalysis consistent with a urinary infection. 1. Renal failure, most likely chronic kidney disease stage IV secondary to diabetic nephropathy, cannot rule out underlying hypertensive nephrosclerosis also. 2. Urinary tract infection. 3. Right 3rd toe infection, rule out osteomyelitis. Bone scan is positive. 4. Hypertension. 5. Diabetes. PLAN: Continue IV antibiotics, vancomycin and Zosyn, consider ID evaluation and also follow up urine culture reports and identification. Will check PTH intact level and also double strand DNA antibody and Ghotra antibody, follow with podiatry also. We will check PTH intact level and also 24-hour urine protein, creatinine and creatinine clearance after UTI is cleared. We will follow with you. Thank you for allowing me to participate in your patient's care. Shaniqua Wang MD cc: [id number] TT: 02/01/2017 02:48:05 Confirmation # [id number] Dictation # [id number]
[2017-02-01 08:49] LABS: POTASSIUM 4.7 mmol/L (3.6-5.2)
[2017-02-01 08:53] LABS: CALCIUM 8.3 mg/dl (8.6-10.4)
[2017-02-01] MEDS: (Novolog) Insulin Aspart, Recombinant 100 u/ml 10 ml vial SC SCH ×4 (09:33→17:05)
--- NOTE | 2017-02-01 09:44 | CP.PCM.PN ---
Subjective - Date & Time of Evaluation Date of Evaluation: 02/01/17 Time of Evaluation: 10:20 - Subjective Subjective: Patient seen, no complaints, appetite good, bowel and urine brenda was seen by specialists awaiting studies and results fott no [pain- wound is drying Objective - Vital Signs/Intake and Output Vital Signs (last 24 hours): Temp Pulse Resp BP Pulse Ox 98.1 F 66 20 178/81 H 97 02/01/17 07:57 02/01/17 07:57 02/01/17 07:57 02/01/17 07:57 02/01/17 07:57 Intake and Output: 02/01/17 02/01/17 06:59 18:59 Intake Total 1884 Balance 1884 - Medications Medications: Current Medications Enoxaparin Sodium (Lovenox) 30 mg SC DAILY [facility] Last Admin: 01/31/17 10:31 Dose: 30 mg Sodium Chloride (Sodium Chloride 0.9%) 1,000 mls @ 100 mls/hr IV .Q10H [facility] Last Admin: 02/01/17 09:36 Dose: Not Given Sodium Chloride (Sodium Chloride 0.9%) 1,000 mls @ 84 mls/hr IV .[id number] [facility] Last Admin: 02/01/17 09:20 Dose: Not Given Piperacillin Sod/Tazobactam Sod (Zosyn 2.25 Gm Iv Premix) 50 mls @ 100 mls/hr IVPB Q8H [facility] Last Admin: 02/01/17 01:51 Dose: 100 mls/hr Vancomycin HCl 500 mg/ Sodium (Chloride) 100 mls @ 100 mls/hr IVPB TTS [facility] Insulin Aspart (Novolog) 60 unit SC ACB [facility] Last Admin: 02/01/17 09:33 Dose: 60 unit Insulin Aspart (Novolog) 54 unit SC ACL [facility] Last Admin: 01/31/17 12:35 Dose: Not Given Insulin Glargine (Lantus) 50 unit SC Q24H [facility] Last Admin: 01/31/17 18:20 Dose: 50 units Losartan Potassium (Cozaar) 100 mg PO DAILY [facility] Pantoprazole Sodium (Protonix Ec Tab) 40 mg PO DAILY [facility] Rosuvastatin Calcium (Crestor) 10 mg PO HS [facility] Last Admin: 01/31/17 22:05 Dose: 10 mg Sodium Hypochlorite (Dakins Solution 0.125%) 1 appl TOP DAILY [facility] - Labs Labs: 02/01/17 08:34 - Constitutional Appears: Well, Non-toxic - Head Exam Head Exam: ATRAUMATIC, NORMOCEPHALIC - Eye Exam Eye Exam: absent: Nystagmus, Periorbital swelling - ENT Exam ENT Exam: Mucous Membranes Moist - Neck Exam Neck Exam: Full ROM. absent: Tenderness - Respiratory Exam Respiratory Exam: Clear to Ausculation Bilateral, NORMAL BREATHING PATTERN - Cardiovascular Exam Cardiovascular Exam: REGULAR RHYTHM - GI/Abdominal Exam GI & Abdominal Exam: Soft, Normal Bowel Sounds. absent: Tenderness - Extremities Exam Extremities Exam: Full ROM. absent: Tenderness (drying blackish 3rd toe right foot ) - Back Exam Back Exam: Full ROM. absent: vertebral tenderness - Neurological Exam Neurological Exam: Alert, Awake, Normal Gait, Oriented x3 - Psychiatric Exam Psychiatric exam: Normal Affect, Normal Mood - Skin Skin Exam: Intact (other than the toe ), Normal Color Assessment and Plan - Assessment and Plan (Free Text) Assessment: Diabetic toe/ cellulitis, awaiting vascula studie continue antibiotic, PT, vascular and podiatry on case , IDDM2 not controlled- adjusting meds. diet CRI- renal on case Hypertension not on goal- will adjust meds further monitoring evaluation and management heart healthy diet GI and DVT prophylaxis
--- NOTE | 2017-02-01 10:37 | CP.PCM.PN ---
<Keo Benedict - Last Filed: 02/01/17 17:08> Subjective - Date & Time of Evaluation Date of Evaluation: 02/01/17 Time of Evaluation: 14:20 - Subjective Subjective: 61 year old female seen at bedside concerning right 3rd digit cellulits. Pt reports mild pain to the site. Pt is in good spirits, reports no acute overnight events. Deneis recent n/v/f/c/cp/sob. Objective - Vital Signs/Intake and Output Vital Signs (last 24 hours): Temp Pulse Resp BP Pulse Ox 98.1 F 66 20 178/81 H 97 02/01/17 07:57 02/01/17 07:57 02/01/17 07:57 02/01/17 07:57 02/01/17 07:57 Intake and Output: 02/01/17 02/01/17 06:59 18:59 Intake Total 1884 Balance 1884 - Medications Medications: Current Medications Enoxaparin Sodium (Lovenox) 30 mg SC DAILY [facility] Last Admin: 01/31/17 10:31 Dose: 30 mg Sodium Chloride (Sodium Chloride 0.9%) 1,000 mls @ 100 mls/hr IV .Q10H [facility] Last Admin: 02/01/17 09:36 Dose: Not Given Sodium Chloride (Sodium Chloride 0.9%) 1,000 mls @ 84 mls/hr IV .[id number] [facility] Last Admin: 02/01/17 09:20 Dose: Not Given Piperacillin Sod/Tazobactam Sod (Zosyn 2.25 Gm Iv Premix) 50 mls @ 100 mls/hr IVPB Q8H [facility] Last Admin: 02/01/17 01:51 Dose: 100 mls/hr Vancomycin HCl 500 mg/ Sodium (Chloride) 100 mls @ 100 mls/hr IVPB TTS [facility] Insulin Aspart (Novolog) 60 unit SC ACB [facility] Last Admin: 02/01/17 09:33 Dose: 60 unit Insulin Aspart (Novolog) 54 unit SC ACL [facility] Last Admin: 01/31/17 12:35 Dose: Not Given Insulin Glargine (Lantus) 50 unit SC Q24H [facility] Last Admin: 01/31/17 18:20 Dose: 50 units Losartan Potassium (Cozaar) 100 mg PO DAILY [facility] Pantoprazole Sodium (Protonix Ec Tab) 40 mg PO DAILY [facility] Rosuvastatin Calcium (Crestor) 10 mg PO HS [facility] Last Admin: 01/31/17 22:05 Dose: 10 mg Sodium Hypochlorite (Dakins Solution 0.125%) 1 appl TOP DAILY [facility] - Labs Labs: 02/01/17 08:34 - Constitutional Appears: Well, Non-toxic, No Acute Distress - Extremities Exam Additional comments: Right lower extremity focused. VASC: DP and PT pulses non-palpable secondary to non-pitting edema. Temperature gradient runs warm to cool within normal limits. DERM: Distal tuft, medial aspect and dorsal apect of 3rd digit show regressing edema and bulla covering underlying potential ulcerative bed with gree-hued discoloration. Ascending cellulitis has regressed form yesterday to level of 3rd metatarsal-phalangeal joint. No fluctuance noted. No open lesions, no active drainage. NEURO: sensation is grossly absent to level of digits MUSCK: No gross deformities noted. - Neurological Exam Neurological Exam: Alert, Awake, Oriented x3 - Psychiatric Exam Psychiatric exam: Normal Affect, Normal Mood Assessment and Plan - Assessment and Plan (Free Text) Assessment: 61 year old diabetic female with left 3rd digit cellulits. Plan: Pt evaluated and treated with attending Dr. Spence present. Chart, labs, and vitals reviewed. -SHON/PVR & Arterial dopplers show adequate arterial blood-flow. -Bone scan reviewed, results show-increased uptake in right foot distal digits, potential for acute digital OM. -Potential for MRI w/ contrast discussed with ID but due to pt's renal disease and dysfunction, potential for harm is too great. Vascular consult- pending Continue IV abx per ID, ID consult appreciated. Dressed digit with 1/4 strength Dakins Solution wet-to-dry. -Podiatry recommending continued IV ABX for 4-6 weeks. Podiary will continue to follow patient while inhouse <Nima Spence - Last Filed: 02/02/17 08:28> Objective - Vital Signs/Intake and Output Vital Signs (last 24 hours): Temp Pulse Resp BP Pulse Ox 97.6 F 74 20 138/72 99 02/02/17 08:17 02/02/17 08:17 02/02/17 08:17 02/02/17 08:17 02/02/17 08:17 Intake and Output: 02/02/17 02/02/17 06:59 18:59 Intake Total 972 822 Balance 972 822 - Medications Medications: Current Medications Amlodipine Besylate (Norvasc) 10 mg PO DAILY [facility] Last Admin: 02/01/17 11:45 Dose: 10 mg Enoxaparin Sodium (Lovenox) 30 mg SC DAILY [facility] Last Admin: 02/01/17 10:51 Dose: 30 mg Sodium Chloride (Sodium Chloride 0.9%) 1,000 mls @ 100 mls/hr IV .Q10H [facility] Last Admin: 02/02/17 07:34 Dose: Not Given Sodium Chloride (Sodium Chloride 0.9%) 1,000 mls @ 84 mls/hr IV .[id number] [facility] Last Admin: 02/01/17 18:50 Dose: 84 mls/hr Piperacillin Sod/Tazobactam Sod (Zosyn 2.25 Gm Iv Premix) 50 mls @ 100 mls/hr IVPB Q8H [facility] Last Admin: 02/02/17 01:28 Dose: 100 mls/hr Vancomycin HCl 500 mg/ Sodium (Chloride) 100 mls @ 100 mls/hr IVPB TTS [facility] Last Admin: 02/01/17 11:43 Dose: 100 mls/hr Insulin Aspart (Novolog) 40 unit SC TIDCC [facility] Last Admin: 02/02/17 08:21 Dose: 40 unit Insulin Glargine (Lantus) 50 unit SC Q24H [facility] Last Admin: 02/01/17 18:15 Dose: Not Given Losartan Potassium (Cozaar) 100 mg PO DAILY [facility] Last Admin: 02/01/17 10:50 Dose: 100 mg Pantoprazole Sodium (Protonix Ec Tab) 40 mg PO DAILY [facility] Last Admin: 02/01/17 10:50 Dose: 40 mg Rosuvastatin Calcium (Crestor) 10 mg PO HS [facility] Last Admin: 02/01/17 22:00 Dose: 10 mg Sodium Hypochlorite (Dakins Solution 0.125%) 1 appl TOP DAILY [facility] Last Admin: 02/01/17 11:09 Dose: Not Given - Labs Labs: 02/01/17 08:34 Attending/Attestation - Attestation I have personally seen and examined this patient.: Yes I have fully participated in the care of the patient.: Yes I have reviewed all pertinent clinical information, including history, physical exam and plan: Yes
[2017-02-01] MEDS: Pantoprazole 40 mg EC Tab PO SCH (10:50)
[2017-02-01] MEDS: Enoxaparin 30 mg Syringe SC SCH (10:51)
--- NOTE | 2017-02-01 12:21 | CP.PCM.PN ---
Subjective - Date & Time of Evaluation Date of Evaluation: 02/01/17 Time of Evaluation: 07:10 - Subjective Subjective: Vascular Surgery Pt S&E, NAEO. No complaints, pt feels swelling is less in RLE. Objective - Vital Signs/Intake and Output Vital Signs (last 24 hours): Temp Pulse Resp BP Pulse Ox 98.1 F 66 20 178/81 H 97 02/01/17 07:57 02/01/17 07:57 02/01/17 07:57 02/01/17 07:57 02/01/17 07:57 Intake and Output: 02/01/17 02/01/17 06:59 18:59 Intake Total 1884 Balance 1884 - Medications Medications: Current Medications Amlodipine Besylate (Norvasc) 10 mg PO DAILY [facility] Last Admin: 02/01/17 11:45 Dose: 10 mg Enoxaparin Sodium (Lovenox) 30 mg SC DAILY [facility] Last Admin: 02/01/17 10:51 Dose: 30 mg Sodium Chloride (Sodium Chloride 0.9%) 1,000 mls @ 100 mls/hr IV .Q10H [facility] Last Admin: 02/01/17 09:36 Dose: Not Given Sodium Chloride (Sodium Chloride 0.9%) 1,000 mls @ 84 mls/hr IV .[id number] [facility] Last Admin: 02/01/17 09:20 Dose: Not Given Piperacillin Sod/Tazobactam Sod (Zosyn 2.25 Gm Iv Premix) 50 mls @ 100 mls/hr IVPB Q8H [facility] Last Admin: 02/01/17 11:10 Dose: 100 mls/hr Vancomycin HCl 500 mg/ Sodium (Chloride) 100 mls @ 100 mls/hr IVPB TTS [facility] Last Admin: 02/01/17 11:43 Dose: 100 mls/hr Insulin Aspart (Novolog) 40 unit SC TIDCC [facility] Insulin Glargine (Lantus) 50 unit SC Q24H [facility] Last Admin: 01/31/17 18:20 Dose: 50 units Losartan Potassium (Cozaar) 100 mg PO DAILY [facility] Last Admin: 02/01/17 10:50 Dose: 100 mg Pantoprazole Sodium (Protonix Ec Tab) 40 mg PO DAILY [facility] Last Admin: 02/01/17 10:50 Dose: 40 mg Rosuvastatin Calcium (Crestor) 10 mg PO HS [facility] Last Admin: 01/31/17 22:05 Dose: 10 mg Sodium Hypochlorite (Dakins Solution 0.125%) 1 appl TOP DAILY [facility] Last Admin: 02/01/17 11:09 Dose: Not Given - Labs Labs: 02/01/17 08:34 - Constitutional Appears: Non-toxic, No Acute Distress - Head Exam Head Exam: ATRAUMATIC, NORMOCEPHALIC - Respiratory Exam Respiratory Exam: NORMAL BREATHING PATTERN. absent: Respiratory Distress - Extremities Exam Extremities Exam: Pedal Edema (mild B/L) Additional comments: R 3rd toe, necrotic tissue, trace erythema on dorsum, no TTP - Neurological Exam Neurological Exam: Alert, Awake - Skin Skin Exam: Dry, Warm Assessment and Plan - Assessment and Plan (Free Text) Assessment: 61F with R 3rd toe necrosis Plan: Will F/U arterial duplex results. May require vascular intervention. May need debridement of toe eventually. D/W Dr. Reena Grant PGY3
--- NOTE | 2017-02-01 17:27 | CP.PCM.PN ---
Subjective - Date & Time of Evaluation Date of Evaluation: 02/01/17 Time of Evaluation: 17:27 - Subjective Subjective: pt seen and examined, follow up consult is dictated #[id number] Objective - Vital Signs/Intake and Output Vital Signs (last 24 hours): Temp Pulse Resp BP Pulse Ox 98.0 F 76 20 148/76 95 02/01/17 16:00 02/01/17 16:00 02/01/17 16:00 02/01/17 16:00 02/01/17 16:00 Intake and Output: 02/01/17 02/01/17 06:59 18:59 Intake Total 1884 822 Balance 1884 822 - Medications Medications: Current Medications Amlodipine Besylate (Norvasc) 10 mg PO DAILY [facility] Last Admin: 02/01/17 11:45 Dose: 10 mg Enoxaparin Sodium (Lovenox) 30 mg SC DAILY [facility] Last Admin: 02/01/17 10:51 Dose: 30 mg Sodium Chloride (Sodium Chloride 0.9%) 1,000 mls @ 100 mls/hr IV .Q10H [facility] Last Admin: 02/01/17 09:36 Dose: Not Given Sodium Chloride (Sodium Chloride 0.9%) 1,000 mls @ 84 mls/hr IV .[id number] [facility] Last Admin: 02/01/17 09:20 Dose: Not Given Piperacillin Sod/Tazobactam Sod (Zosyn 2.25 Gm Iv Premix) 50 mls @ 100 mls/hr IVPB Q8H [facility] Last Admin: 02/01/17 11:10 Dose: 100 mls/hr Vancomycin HCl 500 mg/ Sodium (Chloride) 100 mls @ 100 mls/hr IVPB TTS [facility] Last Admin: 02/01/17 11:43 Dose: 100 mls/hr Insulin Aspart (Novolog) 40 unit SC TIDCC [facility] Last Admin: 02/01/17 12:29 Dose: 40 unit Insulin Glargine (Lantus) 50 unit SC Q24H [facility] Last Admin: 01/31/17 18:20 Dose: 50 units Losartan Potassium (Cozaar) 100 mg PO DAILY [facility] Last Admin: 02/01/17 10:50 Dose: 100 mg Pantoprazole Sodium (Protonix Ec Tab) 40 mg PO DAILY [facility] Last Admin: 02/01/17 10:50 Dose: 40 mg Rosuvastatin Calcium (Crestor) 10 mg PO HS [facility] Last Admin: 01/31/17 22:05 Dose: 10 mg Sodium Hypochlorite (Dakins Solution 0.125%) 1 appl TOP DAILY [facility] Last Admin: 02/01/17 11:09 Dose: Not Given - Labs Labs: 02/01/17 08:34
[2017-02-01] MEDS: (Lantus) Insulin Glargine, Recombinant SC SCH (18:15)
--- NOTE | 2017-02-01 19:09 | CP.PCM.PN ---
Subjective - Date & Time of Evaluation Date of Evaluation: 02/01/17 Time of Evaluation: 10:00 - Subjective Subjective: + 3 phase uptake by bone scan cont iv rx as per Dr egan Objective - Vital Signs/Intake and Output Vital Signs (last 24 hours): Temp Pulse Resp BP Pulse Ox 98.0 F 76 20 148/76 95 02/01/17 16:00 02/01/17 16:00 02/01/17 16:00 02/01/17 16:00 02/01/17 16:00 Intake and Output: 02/01/17 02/02/17 18:59 06:59 Intake Total 822 Balance 822 - Medications Medications: Current Medications Amlodipine Besylate (Norvasc) 10 mg PO DAILY [facility] Last Admin: 02/01/17 11:45 Dose: 10 mg Enoxaparin Sodium (Lovenox) 30 mg SC DAILY [facility] Last Admin: 02/01/17 10:51 Dose: 30 mg Sodium Chloride (Sodium Chloride 0.9%) 1,000 mls @ 100 mls/hr IV .Q10H [facility] Last Admin: 02/01/17 09:36 Dose: Not Given Sodium Chloride (Sodium Chloride 0.9%) 1,000 mls @ 84 mls/hr IV .[id number] [facility] Last Admin: 02/01/17 09:20 Dose: Not Given Piperacillin Sod/Tazobactam Sod (Zosyn 2.25 Gm Iv Premix) 50 mls @ 100 mls/hr IVPB Q8H [facility] Last Admin: 02/01/17 18:34 Dose: 100 mls/hr Vancomycin HCl 500 mg/ Sodium (Chloride) 100 mls @ 100 mls/hr IVPB TTS [facility] Last Admin: 02/01/17 11:43 Dose: 100 mls/hr Insulin Aspart (Novolog) 40 unit SC TIDCC [facility] Last Admin: 02/01/17 12:29 Dose: 40 unit Insulin Glargine (Lantus) 50 unit SC Q24H [facility] Last Admin: 01/31/17 18:20 Dose: 50 units Losartan Potassium (Cozaar) 100 mg PO DAILY [facility] Last Admin: 02/01/17 10:50 Dose: 100 mg Pantoprazole Sodium (Protonix Ec Tab) 40 mg PO DAILY [facility] Last Admin: 02/01/17 10:50 Dose: 40 mg Rosuvastatin Calcium (Crestor) 10 mg PO HS [facility] Last Admin: 01/31/17 22:05 Dose: 10 mg Sodium Hypochlorite (Dakins Solution 0.125%) 1 appl TOP DAILY [facility] Last Admin: 02/01/17 11:09 Dose: Not Given - Labs Labs: 02/01/17 08:34 - Constitutional Appears: Non-toxic, Chronically Ill - Head Exam Head Exam: NORMOCEPHALIC - Eye Exam Eye Exam: absent: Scleral icterus - ENT Exam ENT Exam: Mucous Membranes Dry - Neck Exam Neck Exam: absent: Lymphadenopathy - Respiratory Exam Respiratory Exam: Decreased Breath Sounds - Cardiovascular Exam Cardiovascular Exam: REGULAR RHYTHM - GI/Abdominal Exam GI & Abdominal Exam: Distended, Soft. absent: Tenderness - Rectal Exam Rectal Exam: Deferred - Exam Exam: NORMAL INSPECTION - Extremities Exam Extremities Exam: absent: Pedal Edema - Back Exam Back Exam: absent: CVA tenderness (L), CVA tenderness (R) - Neurological Exam Neurological Exam: Alert, Awake, Oriented x3 - Psychiatric Exam Psychiatric exam: Normal Mood - Skin Skin Exam: Dry Assessment and Plan (1) Cellulitis of right foot Status: Acute (2) Diabetic foot ulcer associated with type 2 diabetes mellitus Status: Acute (3) Obesity (BMI 30.0-34.9) Status: Acute (4) CKD (chronic kidney disease) requiring chronic dialysis Status: Acute
[2017-02-02] MEDS: Piperacill/Tazo 2.25gm in Dex 50 ML IVPB SCH ×3 (01:28→17:25)
[2017-02-02] MEDS: Sodium Chloride 0.9% 1,000 ML IV SCH ×3 (07:34→22:47)
--- NOTE | 2017-02-02 08:03 | PN ---
DATE: 02/01/2017 The patient is located in room 370, bed A. REQUESTED BY: Dr. Donna Melendez. REASON FOR RENAL FOLLOWUP: Chronic kidney disease, proteinuria and urinary tract infection . HISTORY OF PRESENT ILLNESS: The patient is a 61-year-old obese female with a past medical history significant for long-standing hypertension, diabetes, hyperlipidemia, CVA, peripheral vascular disease, status post left lower extremity bypass, who was admitted with a self-injury to the right third toe and which is getting worse for the last 1 week and the patient came to the hospital with discoloration and infiltration of the right third toe. The patient is not in acute distress and denies any headache or dizziness. Denies any chest pain or palpitations. Denies any fever or cough. No abdominal pain. No nausea, no vomiting and no diarrhea. PHYSICAL EXAMINATION: VITAL SIGNS: As follows: Blood pressure 148/76, pulse 76, respirations 20, temperature 98, saturation 95%, height 5 feet 4 inches and weight is 189 pounds. GENERAL: The patient is a 61-year-old female, well built, well nourished, not in acute distress. HEENT: Pupils normal, reactive to light and accommodation. Conjunctivae pink. Sclerae anicteric. Tongue is moist. NECK: Trachea midline. LUNGS: Symmetric on both sides. Bilateral breath sounds present. Clear on auscultation. CARDIOVASCULAR: [place] at the fifth intercostal space midclavicular line. S1 and S2 audible. No murmur or gallop. ABDOMEN: Normal in appearance, soft, tympanic. No guarding, no rigidity. No hepatosplenomegaly. CENTRAL NERVOUS SYSTEM: The patient is alert, awake, oriented x 3, nonfocal on examination. Cranial nerves II-XII grossly intact. Sensory and motor system is within normal limits. EXTREMITIES: No cyanosis, no clubbing. The patient has 1-2+ edema in both lower extremities and also the patient has a dressing to the right third toe. CURRENT MEDICATIONS: Include as follows: Cozaar 100 mg p.o. daily, Crestor 10 mg p.o. at bedtime, Lantus 50 units subQ q.24 hours, Lovenox 30 mg subQ daily, Norvasc 10 mg daily, NovoLog 40 units subQ t.i.d., Protonix 40 mg p.o. daily, IV fluids 100 mL hour, now it was not given; vancomycin 500 mg 3 times a week, Sunday, , Sunday and Zosyn 2.25 grams q.8 hours. LABORATORY DATA: Include as follows as of 02/01/2017: Sodium 138, potassium 4.7. Her laboratory data includes as follows: Chloride 101, CO2 of 23, BUN 39 , creatinine 2.7, glucose 262, calcium 8.3. Vancomycin level 6.1. Other laboratory data: Blood culture x 2 negative day 1 as of 01/30/2017. IN SUMMARY: The patient is a 61-year-old elderly obese female with a history of hypertension, diabetes, chronic kidney disease, peripheral vascular disease, status post left lower extremity bypass, who was admitted with discoloration of the right third toe after self-injuring with a nail on the toe and discoloration , and bone scan is positive for possible osteomyelitis. 1. Renal failure, most likely chronic kidney disease stage IV. Rule out diabetic nephropathy versus hypertensive nephrosclerosis. 2. Hypertension. Blood pressure is improving. Try to keep blood pressure below 130 / 80 and titrate her medication as needed and consider to add hydralazine 10 mg p.o. q.8 hours. 3. Urinary tract infection. 4. Uncontrolled diabetes. Try to keep hemoglobin A1c below 7. Continue to follow with podiatry and ID. Adjust antibiotics as per ID recommendation. Thank you for allowing me to participate in your patient's care. Will check a 24-hour urine protein and creatinine clearance once the UTI is cleared. Shaniqua Wang MD cc: [id number] TT: 02/01/2017 19:04:30 Confirmation # [id number] Dictation # [id number] aileen [facility]
[2017-02-02] MEDS: (Novolog) Insulin Aspart, Recombinant 100 u/ml 10 ml vial SC SCH ×3 (08:21→17:30)
--- NOTE | 2017-02-02 08:59 | CP.PCM.PN ---
Subjective - Date & Time of Evaluation Date of Evaluation: 02/02/17 Time of Evaluation: 07:20 - Subjective Subjective: Vascular surgery Pt S&E, NAEO. No complaints at this time. Awaiting arterial duplex. Objective - Vital Signs/Intake and Output Vital Signs (last 24 hours): Temp Pulse Resp BP Pulse Ox 97.6 F 74 20 138/72 99 02/02/17 08:17 02/02/17 08:17 02/02/17 08:17 02/02/17 08:17 02/02/17 08:17 Intake and Output: 02/02/17 02/02/17 06:59 18:59 Intake Total 972 822 Balance 972 822 - Medications Medications: Current Medications Amlodipine Besylate (Norvasc) 10 mg PO DAILY [facility] Last Admin: 02/01/17 11:45 Dose: 10 mg Enoxaparin Sodium (Lovenox) 30 mg SC DAILY [facility] Last Admin: 02/01/17 10:51 Dose: 30 mg Sodium Chloride (Sodium Chloride 0.9%) 1,000 mls @ 100 mls/hr IV .Q10H [facility] Last Admin: 02/02/17 07:34 Dose: Not Given Sodium Chloride (Sodium Chloride 0.9%) 1,000 mls @ 84 mls/hr IV .[id number] [facility] Last Admin: 02/01/17 18:50 Dose: 84 mls/hr Piperacillin Sod/Tazobactam Sod (Zosyn 2.25 Gm Iv Premix) 50 mls @ 100 mls/hr IVPB Q8H [facility] Last Admin: 02/02/17 01:28 Dose: 100 mls/hr Vancomycin HCl 500 mg/ Sodium (Chloride) 100 mls @ 100 mls/hr IVPB TTS [facility] Last Admin: 02/01/17 11:43 Dose: 100 mls/hr Insulin Aspart (Novolog) 40 unit SC TIDCC [facility] Last Admin: 02/02/17 08:21 Dose: 40 unit Insulin Glargine (Lantus) 50 unit SC Q24H [facility] Last Admin: 02/01/17 18:15 Dose: Not Given Losartan Potassium (Cozaar) 100 mg PO DAILY [facility] Last Admin: 02/01/17 10:50 Dose: 100 mg Pantoprazole Sodium (Protonix Ec Tab) 40 mg PO DAILY [facility] Last Admin: 02/01/17 10:50 Dose: 40 mg Rosuvastatin Calcium (Crestor) 10 mg PO HS [facility] Last Admin: 02/01/17 22:00 Dose: 10 mg Sodium Hypochlorite (Dakins Solution 0.125%) 1 appl TOP DAILY [facility] Last Admin: 02/01/17 11:09 Dose: Not Given - Labs Labs: 02/01/17 08:34 - Constitutional Appears: Non-toxic, No Acute Distress - Head Exam Head Exam: ATRAUMATIC, NORMOCEPHALIC - Respiratory Exam Respiratory Exam: NORMAL BREATHING PATTERN. absent: Respiratory Distress - GI/Abdominal Exam GI & Abdominal Exam: Soft. absent: Distended, Tenderness - Extremities Exam Additional comments: R 3rd toe, necrotic tissue, no TTP, Dressing C/D/I - Neurological Exam Neurological Exam: Alert, Awake - Skin Skin Exam: Dry, Warm Assessment and Plan - Assessment and Plan (Free Text) Assessment: 61F with R 3rd toe necrosis Plan: F/U arterial duplex results. D/W Dr. Reena Grant PGY3
[2017-02-02] MEDS: Pantoprazole 40 mg EC Tab PO SCH (09:35)
[2017-02-02] MEDS: Enoxaparin 30 mg Syringe SC SCH (09:36)
--- NOTE | 2017-02-02 10:06 | CP.PCM.PN ---
Subjective - Date & Time of Evaluation Date of Evaluation: 02/02/17 Time of Evaluation: 10:06 - Subjective Subjective: pt seen and examined, follow up consult is dictated #[id number] d/w Ricardo mccracken in rounds Objective - Vital Signs/Intake and Output Vital Signs (last 24 hours): Temp Pulse Resp BP Pulse Ox 97.6 F 74 20 138/72 99 02/02/17 08:17 02/02/17 08:17 02/02/17 08:17 02/02/17 08:17 02/02/17 08:17 Intake and Output: 02/02/17 02/02/17 06:59 18:59 Intake Total 972 822 Balance 972 822 - Medications Medications: Current Medications Amlodipine Besylate (Norvasc) 10 mg PO DAILY [facility] Last Admin: 02/02/17 09:35 Dose: 10 mg Enoxaparin Sodium (Lovenox) 30 mg SC DAILY [facility] Last Admin: 02/02/17 09:36 Dose: 30 mg Sodium Chloride (Sodium Chloride 0.9%) 1,000 mls @ 100 mls/hr IV .Q10H [facility] Last Admin: 02/02/17 07:34 Dose: Not Given Sodium Chloride (Sodium Chloride 0.9%) 1,000 mls @ 84 mls/hr IV .[id number] [facility] Last Admin: 02/02/17 09:36 Dose: 84 mls/hr Piperacillin Sod/Tazobactam Sod (Zosyn 2.25 Gm Iv Premix) 50 mls @ 100 mls/hr IVPB Q8H [facility] Last Admin: 02/02/17 09:43 Dose: 100 mls/hr Vancomycin HCl 500 mg/ Sodium (Chloride) 100 mls @ 100 mls/hr IVPB TTS [facility] Last Admin: 02/01/17 11:43 Dose: 100 mls/hr Insulin Aspart (Novolog) 40 unit SC TIDCC [facility] Last Admin: 02/02/17 08:21 Dose: 40 unit Insulin Glargine (Lantus) 50 unit SC Q24H [facility] Last Admin: 02/01/17 18:15 Dose: Not Given Losartan Potassium (Cozaar) 100 mg PO DAILY [facility] Last Admin: 02/02/17 09:35 Dose: 100 mg Pantoprazole Sodium (Protonix Ec Tab) 40 mg PO DAILY [facility] Last Admin: 02/02/17 09:35 Dose: 40 mg Rosuvastatin Calcium (Crestor) 10 mg PO HS [facility] Last Admin: 02/01/17 22:00 Dose: 10 mg Sodium Hypochlorite (Dakins Solution 0.125%) 1 appl TOP DAILY [facility] Last Admin: 02/01/17 11:09 Dose: Not Given - Labs Labs: 02/01/17 08:34
--- NOTE | 2017-02-02 11:20 | CP.PCM.PN ---
Subjective - Date & Time of Evaluation Date of Evaluation: 02/02/17 Time of Evaluation: 11:18 - Subjective Subjective: Pt seen at bedside for f/u right 3rd digit ulcer/osteo. Vascular on case - awaiting for vasc studies to be f/u. At present due to impaired renal function , will hold on MRI with contrast to eval for osteo right 3rd. Pt is on IV abx. To cont with local wound care for now and close observation. Objective - Vital Signs/Intake and Output Vital Signs (last 24 hours): Temp Pulse Resp BP Pulse Ox 97.6 F 74 20 138/72 99 02/02/17 08:17 02/02/17 08:17 02/02/17 08:17 02/02/17 08:17 02/02/17 08:17 Intake and Output: 02/02/17 02/02/17 06:59 18:59 Intake Total 972 822 Balance 972 822 - Medications Medications: Current Medications Amlodipine Besylate (Norvasc) 10 mg PO DAILY [facility] Last Admin: 02/02/17 09:35 Dose: 10 mg Enoxaparin Sodium (Lovenox) 30 mg SC DAILY [facility] Last Admin: 02/02/17 09:36 Dose: 30 mg Sodium Chloride (Sodium Chloride 0.9%) 1,000 mls @ 100 mls/hr IV .Q10H [facility] Last Admin: 02/02/17 07:34 Dose: Not Given Sodium Chloride (Sodium Chloride 0.9%) 1,000 mls @ 84 mls/hr IV .[id number] [facility] Last Admin: 02/02/17 09:36 Dose: 84 mls/hr Piperacillin Sod/Tazobactam Sod (Zosyn 2.25 Gm Iv Premix) 50 mls @ 100 mls/hr IVPB Q8H [facility] Last Admin: 02/02/17 09:43 Dose: 100 mls/hr Vancomycin HCl 500 mg/ Sodium (Chloride) 100 mls @ 100 mls/hr IVPB TTS [facility] Last Admin: 02/01/17 11:43 Dose: 100 mls/hr Insulin Aspart (Novolog) 40 unit SC TIDCC [facility] Last Admin: 02/02/17 08:21 Dose: 40 unit Insulin Glargine (Lantus) 50 unit SC Q24H [facility] Last Admin: 02/01/17 18:15 Dose: Not Given Losartan Potassium (Cozaar) 100 mg PO DAILY [facility] Last Admin: 02/02/17 09:35 Dose: 100 mg Pantoprazole Sodium (Protonix Ec Tab) 40 mg PO DAILY [facility] Last Admin: 02/02/17 09:35 Dose: 40 mg Rosuvastatin Calcium (Crestor) 10 mg PO HS [facility] Last Admin: 02/01/17 22:00 Dose: 10 mg Sodium Hypochlorite (Dakins Solution 0.125%) 1 appl TOP DAILY [facility] Last Admin: 02/01/17 11:09 Dose: Not Given - Labs Labs: 02/01/17 08:34
--- NOTE | 2017-02-02 11:44 | CP.PCM.PN ---
Subjective - Date & Time of Evaluation Date of Evaluation: 02/02/17 Time of Evaluation: 10:00 - Subjective Subjective: patient seen- sitting by bedside, leg elevated - reports no complaints- was seen by emndocrine and other specialist aware of antibiotic and plan of care Discussion with podiatry Dr Spence- drake oropeza at this point, antibiotic looks working, questionable OM good appetite, BM and urine no complaints, ambulate Objective - Vital Signs/Intake and Output Vital Signs (last 24 hours): Temp Pulse Resp BP Pulse Ox 97.6 F 74 20 138/72 99 02/02/17 08:17 02/02/17 08:17 02/02/17 08:17 02/02/17 08:17 02/02/17 08:17 Intake and Output: 02/02/17 02/02/17 06:59 18:59 Intake Total 972 822 Balance 972 822 - Medications Medications: Current Medications Amlodipine Besylate (Norvasc) 10 mg PO DAILY [facility] Last Admin: 02/02/17 09:35 Dose: 10 mg Enoxaparin Sodium (Lovenox) 30 mg SC DAILY [facility] Last Admin: 02/02/17 09:36 Dose: 30 mg Sodium Chloride (Sodium Chloride 0.9%) 1,000 mls @ 100 mls/hr IV .Q10H [facility] Last Admin: 02/02/17 07:34 Dose: Not Given Sodium Chloride (Sodium Chloride 0.9%) 1,000 mls @ 84 mls/hr IV .[id number] [facility] Last Admin: 02/02/17 09:36 Dose: 84 mls/hr Piperacillin Sod/Tazobactam Sod (Zosyn 2.25 Gm Iv Premix) 50 mls @ 100 mls/hr IVPB Q8H [facility] Last Admin: 02/02/17 09:43 Dose: 100 mls/hr Vancomycin HCl 500 mg/ Sodium (Chloride) 100 mls @ 100 mls/hr IVPB TTS [facility] Last Admin: 02/01/17 11:43 Dose: 100 mls/hr Insulin Aspart (Novolog) 40 unit SC TIDCC [facility] Last Admin: 02/02/17 08:21 Dose: 40 unit Insulin Glargine (Lantus) 50 unit SC Q24H [facility] Last Admin: 02/01/17 18:15 Dose: Not Given Losartan Potassium (Cozaar) 100 mg PO DAILY [facility] Last Admin: 02/02/17 09:35 Dose: 100 mg Pantoprazole Sodium (Protonix Ec Tab) 40 mg PO DAILY [facility] Last Admin: 02/02/17 09:35 Dose: 40 mg Rosuvastatin Calcium (Crestor) 10 mg PO HS [facility] Last Admin: 02/01/17 22:00 Dose: 10 mg Sodium Hypochlorite (Dakins Solution 0.125%) 1 appl TOP DAILY [facility] Last Admin: 02/01/17 11:09 Dose: Not Given - Labs Labs: 02/01/17 08:34 - Constitutional Appears: Well, Non-toxic - Head Exam Head Exam: ATRAUMATIC, NORMOCEPHALIC - Eye Exam Eye Exam: Normal appearance. absent: Nystagmus - Respiratory Exam Respiratory Exam: Clear to Ausculation Bilateral, NORMAL BREATHING PATTERN - Cardiovascular Exam Cardiovascular Exam: REGULAR RHYTHM - GI/Abdominal Exam GI & Abdominal Exam: Soft, Normal Bowel Sounds. absent: Tenderness - Extremities Exam Extremities Exam: Full ROM. absent: Pedal Edema (3rd toe left foot no swelling bdark discoloration, no worsening poor pulses ) - Back Exam Back Exam: Full ROM. absent: tenderness - Neurological Exam Neurological Exam: Alert, Awake, Normal Gait, Oriented x3 - Psychiatric Exam Psychiatric exam: Normal Affect, Normal Mood - Skin Skin Exam: Intact (other than the 3rd toe left foot ), Normal Color Assessment and Plan - Assessment and Plan (Free Text) Assessment: cellulitis with questionable osteomyelitis 3rd toe left foot- - will continue antibiotic, ID note appreciated discussed with podiatry no further proceduer at this point Uncontrolled DM- adjusting insulin- Endocrine on case will continue IVF for now nocongestion CRI- aware- hypertension- getting better PT
--- NOTE | 2017-02-02 14:56 | CP.PCM.PN ---
Objective - Vital Signs/Intake and Output Vital Signs (last 24 hours): Temp Pulse Resp BP Pulse Ox 97.6 F 74 20 138/72 99 02/02/17 08:17 02/02/17 14:30 02/02/17 08:17 02/02/17 08:17 02/02/17 08:17 Intake and Output: 02/02/17 02/02/17 06:59 18:59 Intake Total 972 1744 Balance 972 1744 - Medications Medications: Current Medications Amlodipine Besylate (Norvasc) 10 mg PO DAILY [facility] Last Admin: 02/02/17 09:35 Dose: 10 mg Enoxaparin Sodium (Lovenox) 30 mg SC DAILY [facility] Last Admin: 02/02/17 09:36 Dose: 30 mg Sodium Chloride (Sodium Chloride 0.9%) 1,000 mls @ 100 mls/hr IV .Q10H [facility] Last Admin: 02/02/17 07:34 Dose: Not Given Sodium Chloride (Sodium Chloride 0.9%) 1,000 mls @ 84 mls/hr IV .[id number] [facility] Last Admin: 02/02/17 09:36 Dose: 84 mls/hr Piperacillin Sod/Tazobactam Sod (Zosyn 2.25 Gm Iv Premix) 50 mls @ 100 mls/hr IVPB Q8H [facility] Last Admin: 02/02/17 09:43 Dose: 100 mls/hr Vancomycin HCl 500 mg/ Sodium (Chloride) 100 mls @ 100 mls/hr IVPB TTS [facility] Last Admin: 02/01/17 11:43 Dose: 100 mls/hr Insulin Aspart (Novolog) 40 unit SC TIDCC [facility] Last Admin: 02/02/17 13:02 Dose: 40 unit Insulin Glargine (Lantus) 50 unit SC Q24H [facility] Last Admin: 02/01/17 18:15 Dose: Not Given Losartan Potassium (Cozaar) 100 mg PO DAILY [facility] Last Admin: 02/02/17 09:35 Dose: 100 mg Pantoprazole Sodium (Protonix Ec Tab) 40 mg PO DAILY [facility] Last Admin: 02/02/17 09:35 Dose: 40 mg Rosuvastatin Calcium (Crestor) 10 mg PO HS [facility] Last Admin: 02/01/17 22:00 Dose: 10 mg Sodium Hypochlorite (Dakins Solution 0.125%) 1 appl TOP DAILY [facility] Last Admin: 02/02/17 13:04 Dose: Not Given - Labs Labs: 02/01/17 08:34
--- NOTE | 2017-02-02 19:48 | CP.PCM.PN ---
Subjective - Date & Time of Evaluation Date of Evaluation: 02/02/17 Time of Evaluation: 09:00 - Subjective Subjective: bone scan + on vanco / zosyn slow progress podiatry on board will need middle or [employer] principal rx Objective - Vital Signs/Intake and Output Vital Signs (last 24 hours): Temp Pulse Resp BP Pulse Ox 98 F 74 20 125/72 98 02/02/17 15:00 02/02/17 15:00 02/02/17 15:00 02/02/17 15:00 02/02/17 15:00 Intake and Output: 02/02/17 02/03/17 18:59 06:59 Intake Total 1744 Balance 1744 - Medications Medications: Current Medications Amlodipine Besylate (Norvasc) 10 mg PO DAILY [facility] Last Admin: 02/02/17 09:35 Dose: 10 mg Enoxaparin Sodium (Lovenox) 30 mg SC DAILY [facility] Last Admin: 02/02/17 09:36 Dose: 30 mg Sodium Chloride (Sodium Chloride 0.9%) 1,000 mls @ 84 mls/hr IV .[id number] [facility] Last Admin: 02/02/17 09:36 Dose: 84 mls/hr Piperacillin Sod/Tazobactam Sod (Zosyn 2.25 Gm Iv Premix) 50 mls @ 100 mls/hr IVPB Q8H [facility] Last Admin: 02/02/17 17:25 Dose: 100 mls/hr Vancomycin HCl 500 mg/ Sodium (Chloride) 100 mls @ 100 mls/hr IVPB TTS [facility] Last Admin: 02/01/17 11:43 Dose: 100 mls/hr Insulin Aspart (Novolog) 40 unit SC TIDCC [facility] Last Admin: 02/02/17 13:02 Dose: 40 unit Insulin Glargine (Lantus) 50 unit SC Q24H [facility] Last Admin: 02/01/17 18:15 Dose: Not Given Losartan Potassium (Cozaar) 100 mg PO DAILY [facility] Last Admin: 02/02/17 09:35 Dose: 100 mg Pantoprazole Sodium (Protonix Ec Tab) 40 mg PO DAILY [facility] Last Admin: 02/02/17 09:35 Dose: 40 mg Rosuvastatin Calcium (Crestor) 10 mg PO HS [facility] Last Admin: 02/01/17 22:00 Dose: 10 mg Sodium Hypochlorite (Dakins Solution 0.125%) 1 appl TOP DAILY [facility] Last Admin: 02/02/17 13:04 Dose: Not Given - Labs Labs: 02/01/17 08:34 - Constitutional Appears: Non-toxic, Chronically Ill - Head Exam Head Exam: NORMOCEPHALIC - Eye Exam Eye Exam: absent: Scleral icterus - ENT Exam ENT Exam: Mucous Membranes Dry - Neck Exam Neck Exam: absent: Lymphadenopathy - Respiratory Exam Respiratory Exam: Decreased Breath Sounds - Cardiovascular Exam Cardiovascular Exam: REGULAR RHYTHM, +S1, +S2 - GI/Abdominal Exam GI & Abdominal Exam: Distended, Soft. absent: Tenderness - Rectal Exam Rectal Exam: Deferred - Exam Exam: NORMAL INSPECTION - Extremities Exam Extremities Exam: Pedal Edema, Tenderness. absent: Calf Tenderness - Back Exam Back Exam: absent: CVA tenderness (L), CVA tenderness (R) - Neurological Exam Neurological Exam: Alert, Awake, Oriented x3 Assessment and Plan (1) Cellulitis of right foot Status: Acute (2) Diabetic foot ulcer associated with type 2 diabetes mellitus Status: Acute (3) Obesity (BMI 30.0-34.9) Status: Acute (4) CKD (chronic kidney disease) requiring chronic dialysis Status: Acute
[2017-02-02] MEDS: (Lantus) Insulin Glargine, Recombinant SC SCH (21:36)
[2017-02-03] MEDS: Piperacill/Tazo 2.25gm in Dex 50 ML IVPB SCH ×3 (01:32→17:32)
[2017-02-03] MEDS: Sodium Chloride 0.9% 1,000 ML IV SCH (01:34)
--- NOTE | 2017-02-03 02:21 | PN ---
DATE: 02/02/2017 The patient is located in room 370, bed A. REQUESTED BY: Dr. Megan Melendez. REASON FOR FOLLOWUP: Chronic kidney disease and infected right third toe. HISTORY OF PRESENT ILLNESS: The patient is a 61-year-old elderly obese female with a history of long standing hypertension, diabetes, hyperlipidemia, peripheral vascular disease and is status post left lower extremity bypass who was admitted with right third toe infection. Bone scan is positive for po ssible osteomyelitis. The patient is feeling better, not in acute distress, denies any headache, diz ziness. Denies any chest pain, palpitations. Denies any fever or cough. Still complains of swellin g of the legs. PHYSICAL EXAMINATION: VITAL SIGNS: This morning as follows: Blood pressure 138/72, pulse 74, respirations 20, temperature 97.6, saturation 99%. Height 5 feet 4 inches and weight is 189 pounds. GENERAL: The patient is a single white 61-year-old obese female, well built, well nourished, not in acute distress. HEENT: Pupils normal, reactive to light and accommodation. Conjunctivae pink. Sclerae anicteric. Tongue is moist. NECK: Trachea is midline. LUNGS: Symmetric on both sides. Bilateral breath sounds present. Clear on auscultation. CARDIOVASCULAR: [place] in the fifth intercostal space midclavicular line. S1 and S2 audible. No murm ur, no gallop. ABDOMEN: Normal in appearance, soft, tympanic. No guarding, no rigidity. No hepatosplenomegaly. CENTRAL NERVOUS SYSTEM: The patient is alert, awake, oriented x 3, nonfocal on examination. Cranial nerves II through XII grossly intact. Sensory and motor system is within normal limits. EXTREMITIES: No cyanosis, no clubbing. The patient has now 2+ edema in both lower extremities and a lso the patient has a dressing to the right foot. CURRENT MEDICATIONS: Include as follows: Losartan 100 mg p.o. daily, Crestor 10 mg at bedtime and L ovenox 30 mg subQ daily, amlodipine 10 mg daily, insulin as per 40 units subQ t.i.d. and Zosyn 2.25 grams every 8 hours, Protonix 40 mg daily, vancomycin 500 mg 3 times a week. LABORATORY DATA: Include as follows: As of 02/02/2017, no new labs are available. Accu-Cheks 199. Blood culture as of 01/30/2017 x 2 is negative. SUMMARY: The patient is a 61-year-old obese elderly female with history of hypertension, hyperlipide elpidio, diabetic retinopathy, peripheral vascular disease, status post left lower extremity bypass, was admitted with right third toe infection. Bone scan is now positive for possible osteomyelitis of the tuft of the third digit. 1. Renal failure, chronic kidney disease stage IV, rule out diabetic nephropathy versus hypertensive nephrosclerosis. 2. Right third toe infection. Rule out osteomyelitis. 3. Hypertension. Continue IV antibiotics as per the PMD, Zosyn, and vancomycin and will follow up w [facility] podiatry and surgery. 4. Urinary tract infection. Repeat urinalysis and BMP and CBC in the a.m. and also will check doubl e-strand DNA and Ghotra antibody. Will follow with you. Thank you for allowing me to participate in your patient's care. Shaniqua Wang MD cc: [id number] TT: 02/03/2017 02:20:40 Confirmation # [id number] Dictation # [id number] [place]
[2017-02-03 07:47] LABS: HEMATOCRIT 34.8 % (34.0-47.0); MEAN CELL VOLUME 85.1 fL (81.0-99.0); MEAN CORPUSCULAR HEMOGLOBIN 28.3 pg (27.0-31.0); MEAN CORPUSCULAR HGB CONC 33.2 g/dL (33.0-37.0); MEAN PLATELET VOLUME 7.2 fL (7.2-11.7); WHITE BLOOD COUNT 7.6 K/uL (4.8-10.8)
[2017-02-03 07:55] LABS: POTASSIUM 4.3 mmol/L (3.6-5.2)
[2017-02-03 07:59] LABS: CALCIUM 8.4 mg/dl (8.6-10.4)
[2017-02-03] MEDS: (Novolog) Insulin Aspart, Recombinant 100 u/ml 10 ml vial SC SCH ×3 (08:16→17:31)
[2017-02-03 08:26] LABS: RBC URINE 2 /hpf (0-3); URINE BILIRUBIN NEGATIVE (NEGATIVE); URINE BLOOD NEGATIVE (NEGATIVE); URINE COLOR Yellow (YELLOW); URINE GLUCOSE (UA) 2+ mg/dL (Normal); URINE KETONE NEGATIVE (NEGATIVE); URINE LEUKOCYTE ESTERASE NEG Leu/uL (Negative); URINE PROTEIN 2+ mg/dL (NEGATIVE); URINE UROBILINOGEN NORMAL mg/dL (0.2-1.0); WBC URINE 4 /hpf (0-5)
[2017-02-03] MEDS: Enoxaparin 30 mg Syringe SC SCH (10:12)
[2017-02-03] MEDS: Pantoprazole 40 mg EC Tab PO SCH (11:03)
--- NOTE | 2017-02-03 11:54 | CP.PCM.PN ---
Subjective - Date & Time of Evaluation Date of Evaluation: 02/03/17 Time of Evaluation: 11:53 - Subjective Subjective: non invasive tests treviewed CRF noted and problem with additional imaging likele she will heal toe amp fu dwp Objective - Vital Signs/Intake and Output Vital Signs (last 24 hours): Temp Pulse Resp BP Pulse Ox 98.0 F 83 20 149/73 96 02/03/17 07:47 02/03/17 07:47 02/03/17 07:47 02/03/17 08:47 02/03/17 07:47 Intake and Output: 02/03/17 02/03/17 06:59 18:59 Intake Total 920 Balance 920 - Medications Medications: Current Medications Acetaminophen (Tylenol 325mg Tab) 650 mg PO Q4 PRN PRN Reason: Pain, moderate (4-7) Amlodipine Besylate (Norvasc) 10 mg PO DAILY [facility] Last Admin: 02/03/17 10:12 Dose: 10 mg Enoxaparin Sodium (Lovenox) 30 mg SC DAILY [facility] Last Admin: 02/03/17 10:12 Dose: 30 mg Piperacillin Sod/Tazobactam Sod (Zosyn 2.25 Gm Iv Premix) 50 mls @ 100 mls/hr IVPB Q8H [facility] Last Admin: 02/03/17 10:11 Dose: 100 mls/hr Vancomycin HCl 500 mg/ Sodium (Chloride) 100 mls @ 100 mls/hr IVPB TTS [facility] Last Admin: 02/03/17 11:03 Dose: 100 mls/hr Insulin Aspart (Novolog) 40 unit SC TIDCC [facility] Last Admin: 02/03/17 08:16 Dose: Not Given Insulin Glargine (Lantus) 50 unit SC HS [facility] Losartan Potassium (Cozaar) 100 mg PO DAILY [facility] Last Admin: 02/03/17 10:12 Dose: 100 mg Pantoprazole Sodium (Protonix Ec Tab) 40 mg PO DAILY [facility] Last Admin: 02/03/17 11:03 Dose: 40 mg Rosuvastatin Calcium (Crestor) 10 mg PO HS [facility] Last Admin: 02/02/17 21:35 Dose: 10 mg Sodium Hypochlorite (Dakins Solution 0.125%) 1 appl TOP DAILY [facility] Last Admin: 02/03/17 10:13 Dose: Not Given - Labs Labs: 02/03/17 07:30 02/03/17 07:30
--- NOTE | 2017-02-03 13:17 | CP.PCM.PN ---
Subjective - Date & Time of Evaluation Date of Evaluation: 02/03/17 Time of Evaluation: 12:20 - Subjective Subjective: 61 year old female seen at bedside concerning right 3rd digit cellulits. Pastient was resting comfortably in bed, AAO x3. Dressing to Right foot remains clean, dry and intact. Pt reports mild pain to the site. Pt is in good spirits, reports no acute overnight events. Deneis recent n/v/f/c/cp/sob. Objective - Vital Signs/Intake and Output Vital Signs (last 24 hours): Temp Pulse Resp BP Pulse Ox 98.0 F 83 20 149/73 96 02/03/17 07:47 02/03/17 07:47 02/03/17 07:47 02/03/17 08:47 02/03/17 07:47 Intake and Output: 02/03/17 02/03/17 06:59 18:59 Intake Total 920 Balance 920 - Medications Medications: Current Medications Acetaminophen (Tylenol 325mg Tab) 650 mg PO Q4 PRN PRN Reason: Pain, moderate (4-7) Last Admin: 02/03/17 11:53 Dose: 650 mg Amlodipine Besylate (Norvasc) 10 mg PO DAILY [facility] Last Admin: 02/03/17 10:12 Dose: 10 mg Enoxaparin Sodium (Lovenox) 30 mg SC DAILY [facility] Last Admin: 02/03/17 10:12 Dose: 30 mg Piperacillin Sod/Tazobactam Sod (Zosyn 2.25 Gm Iv Premix) 50 mls @ 100 mls/hr IVPB Q8H [facility] Last Admin: 02/03/17 10:11 Dose: 100 mls/hr Vancomycin HCl 500 mg/ Sodium (Chloride) 100 mls @ 100 mls/hr IVPB TTS [facility] Last Admin: 02/03/17 11:03 Dose: 100 mls/hr Insulin Aspart (Novolog) 40 unit SC TIDCC [facility] Last Admin: 02/03/17 11:54 Dose: 20 unit Insulin Glargine (Lantus) 50 unit SC HS [facility] Losartan Potassium (Cozaar) 100 mg PO DAILY [facility] Last Admin: 02/03/17 10:12 Dose: 100 mg Pantoprazole Sodium (Protonix Ec Tab) 40 mg PO DAILY [facility] Last Admin: 02/03/17 11:03 Dose: 40 mg Rosuvastatin Calcium (Crestor) 10 mg PO HS [facility] Last Admin: 02/02/17 21:35 Dose: 10 mg Sodium Hypochlorite (Dakins Solution 0.125%) 1 appl TOP DAILY [facility] Last Admin: 02/03/17 10:13 Dose: Not Given - Labs Labs: 02/03/17 07:30 02/03/17 07:30 - Constitutional Appears: Well, Non-toxic, No Acute Distress - Extremities Exam Additional comments: Right lower extremity focused. VASC: DP and PT pulses non-palpable secondary to non-pitting edema. Temperature gradient runs warm to cool within normal limits. DERM: Distal tuft, medial aspect and dorsal apect of 3rd digit show regressing edema and bulla covering underlying potential ulcerative bed with gree-hued discoloration. Ascending cellulitis has regressed form yesterday to level of 3rd metatarsal-phalangeal joint. No fluctuance noted. No open lesions, no active drainage. NEURO: sensation is grossly absent to level of digits MUSCK: No gross deformities noted. - Neurological Exam Neurological Exam: Alert, Awake, Oriented x3 - Psychiatric Exam Psychiatric exam: Normal Affect, Normal Mood - Skin Skin Exam: Normal Color, Warm Assessment and Plan - Assessment and Plan (Free Text) Assessment: 61 year old diabetic female with left 3rd digit cellulits. Plan: Pt evaluated and treated with attending Dr. Spence present. Chart, labs, and vitals reviewed. -SHON/PVR & Arterial dopplers show adequate arterial blood-flow. -Bone scan reviewed, results show-increased uptake in right foot distal digits, potential for acute digital OM. -Potential for MRI w/ contrast discussed with ID but due to pt's renal disease and dysfunction, potential for harm is too great. Vascular note appreciated Continue IV abx per ID, ID consult appreciated. Dressed digit with 1/4 strength Dakins Solution wet-to-dry. -Podiatry recommending continued IV ABX for 4-6 weeks. Podiary will continue to follow patient while inhouse
--- NOTE | 2017-02-03 15:37 | CP.PCM.PN ---
Subjective - Date & Time of Evaluation Date of Evaluation: 02/03/17 Time of Evaluation: 02:45 - Subjective Subjective: Patient seen, in bed - -conversant, aware of condition, aware of events, staff discussed that patient seems to be sleepy- sugar 190's Vitals stable, no mpain no complaints Objective - Vital Signs/Intake and Output Vital Signs (last 24 hours): Temp Pulse Resp BP Pulse Ox 98.0 F 83 20 149/73 96 02/03/17 07:47 02/03/17 07:47 02/03/17 07:47 02/03/17 08:47 02/03/17 07:47 Intake and Output: 02/03/17 02/03/17 06:59 18:59 Intake Total 920 850 Balance 920 850 - Medications Medications: Current Medications Acetaminophen (Tylenol 325mg Tab) 650 mg PO Q4 PRN PRN Reason: Pain, moderate (4-7) Last Admin: 02/03/17 11:53 Dose: 650 mg Amlodipine Besylate (Norvasc) 10 mg PO DAILY [facility] Last Admin: 02/03/17 10:12 Dose: 10 mg Enoxaparin Sodium (Lovenox) 30 mg SC DAILY [facility] Last Admin: 02/03/17 10:12 Dose: 30 mg Piperacillin Sod/Tazobactam Sod (Zosyn 2.25 Gm Iv Premix) 50 mls @ 100 mls/hr IVPB Q8H [facility] Last Admin: 02/03/17 10:11 Dose: 100 mls/hr Vancomycin HCl 500 mg/ Sodium (Chloride) 100 mls @ 100 mls/hr IVPB TTS [facility] Last Admin: 02/03/17 11:03 Dose: 100 mls/hr Insulin Aspart (Novolog) 40 unit SC TIDCC [facility] Last Admin: 02/03/17 11:54 Dose: 20 unit Insulin Glargine (Lantus) 50 unit SC HS [facility] Losartan Potassium (Cozaar) 100 mg PO DAILY [facility] Last Admin: 02/03/17 10:12 Dose: 100 mg Pantoprazole Sodium (Protonix Ec Tab) 40 mg PO DAILY [facility] Last Admin: 02/03/17 11:03 Dose: 40 mg Rosuvastatin Calcium (Crestor) 10 mg PO HS [facility] Last Admin: 02/02/17 21:35 Dose: 10 mg Sodium Hypochlorite (Dakins Solution 0.125%) 1 appl TOP DAILY [facility] Last Admin: 02/03/17 10:13 Dose: Not Given - Labs Labs: 02/03/17 07:30 02/03/17 07:30 - Constitutional Appears: Well - Head Exam Head Exam: ATRAUMATIC, NORMOCEPHALIC - Eye Exam Eye Exam: Normal appearance - ENT Exam ENT Exam: Mucous Membranes Moist - Neck Exam Neck Exam: Full ROM - Respiratory Exam Respiratory Exam: Clear to Ausculation Bilateral, NORMAL BREATHING PATTERN - Cardiovascular Exam Cardiovascular Exam: REGULAR RHYTHM - GI/Abdominal Exam GI & Abdominal Exam: Soft, Normal Bowel Sounds. absent: Tenderness - Extremities Exam Extremities Exam: Full ROM. absent: Pedal Edema (smae 3rd toe lesion non worsening ), Tenderness - Back Exam Back Exam: Full ROM. absent: tenderness - Neurological Exam Neurological Exam: Alert, Awake, Normal Gait, Oriented x3 - Psychiatric Exam Psychiatric exam: Normal Affect, Normal Mood - Skin Skin Exam: Intact, Normal Color Assessment and Plan - Assessment and Plan (Free Text) Assessment: 3rd toe right foot cellulitis/osteomyelitis, on antibiotic uncontrolled diabetes- on adjusting medications, insulin, Hypertension continue same medsRenal Insufficiency - under evaluation continue current care
--- NOTE | 2017-02-03 17:26 | CP.PCM.PN ---
Subjective - Date & Time of Evaluation Date of Evaluation: 02/03/17 Time of Evaluation: 17:25 - Subjective Subjective: pt seen and examined, follow up consult is dictated #[id number] check 24 hr up,cr,crcl, pth intact Objective - Vital Signs/Intake and Output Vital Signs (last 24 hours): Temp Pulse Resp BP Pulse Ox 98 F 74 20 136/68 96 02/03/17 16:00 02/03/17 16:00 02/03/17 16:00 02/03/17 16:00 02/03/17 16:00 Intake and Output: 02/03/17 02/03/17 06:59 18:59 Intake Total 920 850 Balance 920 850 - Medications Medications: Current Medications Acetaminophen (Tylenol 325mg Tab) 650 mg PO Q4 PRN PRN Reason: Pain, moderate (4-7) Last Admin: 02/03/17 11:53 Dose: 650 mg Amlodipine Besylate (Norvasc) 10 mg PO DAILY [facility] Last Admin: 02/03/17 10:12 Dose: 10 mg Enoxaparin Sodium (Lovenox) 30 mg SC DAILY [facility] Last Admin: 02/03/17 10:12 Dose: 30 mg Piperacillin Sod/Tazobactam Sod (Zosyn 2.25 Gm Iv Premix) 50 mls @ 100 mls/hr IVPB Q8H [facility] Last Admin: 02/03/17 10:11 Dose: 100 mls/hr Vancomycin HCl 500 mg/ Sodium (Chloride) 100 mls @ 100 mls/hr IVPB TTS [facility] Last Admin: 02/03/17 11:03 Dose: 100 mls/hr Insulin Aspart (Novolog) 40 unit SC TIDCC [facility] Last Admin: 02/03/17 11:54 Dose: 20 unit Insulin Glargine (Lantus) 50 unit SC HS [facility] Losartan Potassium (Cozaar) 100 mg PO DAILY [facility] Last Admin: 02/03/17 10:12 Dose: 100 mg Pantoprazole Sodium (Protonix Ec Tab) 40 mg PO DAILY [facility] Last Admin: 02/03/17 11:03 Dose: 40 mg Rosuvastatin Calcium (Crestor) 10 mg PO HS [facility] Last Admin: 02/02/17 21:35 Dose: 10 mg Sodium Hypochlorite (Dakins Solution 0.125%) 1 appl TOP DAILY [facility] Last Admin: 02/03/17 10:13 Dose: Not Given - Labs Labs: 02/03/17 07:30 02/03/17 07:30
[2017-02-03] MEDS: (Lantus) Insulin Glargine, Recombinant SC SCH ×2 (22:40→22:49)
[2017-02-04] MEDS: Piperacill/Tazo 2.25gm in Dex 50 ML IVPB SCH ×3 (02:02→17:37)
[2017-02-04] MEDS: (Novolog) Insulin Aspart, Recombinant 100 u/ml 10 ml vial SC SCH ×3 (07:57→17:38)
[2017-02-04] MEDS: Enoxaparin 30 mg Syringe SC SCH (10:27)
[2017-02-04] MEDS: Pantoprazole 40 mg EC Tab PO SCH (10:27)
--- NOTE | 2017-02-04 11:14 | CP.PCM.PN ---
Subjective - Date & Time of Evaluation Date of Evaluation: 02/04/17 Time of Evaluation: 11:11 - Subjective Subjective: Pt seen at bedside for f/u right 2nd digit ulcer and redness. Pt is in NAD. Pt denies any fever or chills. Right 3rd digit shows localized edema and erythema. There is no purulence noted or malodor. Slight bleeding tissue noted. Vasc note read and appreciated - amp likely to heal if performed. MRI on hold due to pt impaired renal function. To cont with local wound care for now with IV abx. Objective - Vital Signs/Intake and Output Vital Signs (last 24 hours): Temp Pulse Resp BP Pulse Ox 98.2 F 72 20 142/83 95 02/04/17 08:00 02/04/17 08:00 02/04/17 08:00 02/04/17 08:00 02/04/17 08:00 Intake and Output: 02/04/17 02/04/17 06:59 18:59 Intake Total 290 Balance 290 - Medications Medications: Current Medications Acetaminophen (Tylenol 325mg Tab) 650 mg PO Q4 PRN PRN Reason: Pain, moderate (4-7) Last Admin: 02/04/17 10:26 Dose: 650 mg Amlodipine Besylate (Norvasc) 10 mg PO DAILY [facility] Last Admin: 02/04/17 10:27 Dose: 10 mg Enoxaparin Sodium (Lovenox) 30 mg SC DAILY [facility] Last Admin: 02/04/17 10:27 Dose: 30 mg Piperacillin Sod/Tazobactam Sod (Zosyn 2.25 Gm Iv Premix) 50 mls @ 100 mls/hr IVPB Q8H [facility] Last Admin: 02/04/17 02:02 Dose: 100 mls/hr Vancomycin HCl 500 mg/ Sodium (Chloride) 100 mls @ 100 mls/hr IVPB TTS [facility] Last Admin: 02/03/17 11:03 Dose: 100 mls/hr Insulin Aspart (Novolog) 40 unit SC TIDCC [facility] Last Admin: 02/04/17 07:57 Dose: 20 unit Insulin Glargine (Lantus) 50 unit SC HS [facility] Last Admin: 02/03/17 22:49 Dose: Not Given Losartan Potassium (Cozaar) 100 mg PO DAILY [facility] Last Admin: 02/04/17 10:27 Dose: 100 mg Pantoprazole Sodium (Protonix Ec Tab) 40 mg PO DAILY [facility] Last Admin: 02/04/17 10:27 Dose: 40 mg Rosuvastatin Calcium (Crestor) 10 mg PO [facility] Last Admin: 02/03/17 21:29 Dose: 10 mg Sodium Hypochlorite (Dakins Solution 0.125%) 1 appl TOP DAILY [facility] Last Admin: 02/03/17 10:13 Dose: Not Given - Labs Labs: 02/03/17 07:30 02/03/17 07:30
--- NOTE | 2017-02-04 11:38 | CP.PCM.PN ---
Subjective - Date & Time of Evaluation Date of Evaluation: 02/04/17 Time of Evaluation: 07:45 - Subjective Subjective: Vascular Surgery Pt S&E, [place]. Podiatry on case, managing toe. No complaints at this time. Objective - Vital Signs/Intake and Output Vital Signs (last 24 hours): Temp Pulse Resp BP Pulse Ox 98.2 F 72 20 142/83 95 02/04/17 08:00 02/04/17 08:00 02/04/17 08:00 02/04/17 08:00 02/04/17 08:00 Intake and Output: 02/04/17 02/04/17 06:59 18:59 Intake Total 290 Balance 290 - Medications Medications: Current Medications Acetaminophen (Tylenol 325mg Tab) 650 mg PO Q4 PRN PRN Reason: Pain, moderate (4-7) Last Admin: 02/04/17 10:26 Dose: 650 mg Amlodipine Besylate (Norvasc) 10 mg PO DAILY [facility] Last Admin: 02/04/17 10:27 Dose: 10 mg Enoxaparin Sodium (Lovenox) 30 mg SC DAILY [facility] Last Admin: 02/04/17 10:27 Dose: 30 mg Piperacillin Sod/Tazobactam Sod (Zosyn 2.25 Gm Iv Premix) 50 mls @ 100 mls/hr IVPB Q8H [facility] Last Admin: 02/04/17 11:24 Dose: 100 mls/hr Vancomycin HCl 500 mg/ Sodium (Chloride) 100 mls @ 100 mls/hr IVPB TTS [facility] Last Admin: 02/03/17 11:03 Dose: 100 mls/hr Insulin Aspart (Novolog) 40 unit SC TIDCC [facility] Last Admin: 02/04/17 07:57 Dose: 20 unit Insulin Glargine (Lantus) 50 unit SC HS [facility] Last Admin: 02/03/17 22:49 Dose: Not Given Losartan Potassium (Cozaar) 100 mg PO DAILY [facility] Last Admin: 02/04/17 10:27 Dose: 100 mg Pantoprazole Sodium (Protonix Ec Tab) 40 mg PO DAILY [facility] Last Admin: 02/04/17 10:27 Dose: 40 mg Rosuvastatin Calcium (Crestor) 10 mg PO HS [facility] Last Admin: 02/03/17 21:29 Dose: 10 mg Sodium Hypochlorite (Dakins Solution 0.125%) 1 appl TOP DAILY [facility] Last Admin: 02/04/17 11:20 Dose: Not Given - Labs Labs: 02/03/17 07:30 02/03/17 07:30 - Constitutional Appears: Non-toxic, No Acute Distress - Head Exam Head Exam: ATRAUMATIC, NORMOCEPHALIC - Respiratory Exam Respiratory Exam: NORMAL BREATHING PATTERN. absent: Respiratory Distress - GI/Abdominal Exam GI & Abdominal Exam: Soft. absent: Distended, Tenderness - Extremities Exam Additional comments: R 3rd toe, no TTP, Dressing C/D/I - Neurological Exam Neurological Exam: Alert, Awake - Skin Skin Exam: Dry, Warm Assessment and Plan - Assessment and Plan (Free Text) Assessment: 61F with R 3rd toe dry gangrene/necrosis Plan: No vascular intervention at this time. Podiatry on board to manage R 3rd toe. May need amputation, the site will likely heal. D/W Dr. Reena Grant PGY3
--- NOTE | 2017-02-04 12:06 | CP.PCM.PN ---
Subjective - Date & Time of Evaluation Date of Evaluation: 02/04/17 Time of Evaluation: 11:10 - Subjective Subjective: 61 year old female seen at bedside concerning right 3rd digit cellulits with attending Dr. Spence present. Pastient was resting comfortably in bed, AAO x3. Dressing to Right foot remains clean, dry and intact. The patient reports no acute overnight events, but does admit to mild pain to the site. Deneis recent n /v/f/c/cp/sob. Objective - Vital Signs/Intake and Output Vital Signs (last 24 hours): Temp Pulse Resp BP Pulse Ox 98.2 F 72 20 142/83 95 02/04/17 08:00 02/04/17 08:00 02/04/17 08:00 02/04/17 08:00 02/04/17 08:00 Intake and Output: 02/04/17 02/04/17 06:59 18:59 Intake Total 290 Balance 290 - Medications Medications: Current Medications Acetaminophen (Tylenol 325mg Tab) 650 mg PO Q4 PRN PRN Reason: Pain, moderate (4-7) Last Admin: 02/04/17 10:26 Dose: 650 mg Amlodipine Besylate (Norvasc) 10 mg PO DAILY [facility] Last Admin: 02/04/17 10:27 Dose: 10 mg Enoxaparin Sodium (Lovenox) 30 mg SC DAILY [facility] Last Admin: 02/04/17 10:27 Dose: 30 mg Piperacillin Sod/Tazobactam Sod (Zosyn 2.25 Gm Iv Premix) 50 mls @ 100 mls/hr IVPB Q8H [facility] Last Admin: 02/04/17 11:24 Dose: 100 mls/hr Vancomycin HCl 500 mg/ Sodium (Chloride) 100 mls @ 100 mls/hr IVPB TTS [facility] Last Admin: 02/03/17 11:03 Dose: 100 mls/hr Insulin Aspart (Novolog) 40 unit SC TIDCC [facility] Last Admin: 02/04/17 07:57 Dose: 20 unit Insulin Glargine (Lantus) 50 unit SC HS [facility] Last Admin: 02/03/17 22:49 Dose: Not Given Losartan Potassium (Cozaar) 100 mg PO DAILY [facility] Last Admin: 02/04/17 10:27 Dose: 100 mg Pantoprazole Sodium (Protonix Ec Tab) 40 mg PO DAILY [facility] Last Admin: 02/04/17 10:27 Dose: 40 mg Rosuvastatin Calcium (Crestor) 10 mg PO HS [facility] Last Admin: 02/03/17 21:29 Dose: 10 mg Sodium Hypochlorite (Dakins Solution 0.125%) 1 appl TOP DAILY [facility] Last Admin: 02/04/17 11:20 Dose: Not Given - Labs Labs: 02/03/17 07:30 02/03/17 07:30 - Constitutional Appears: Well, Non-toxic, No Acute Distress - Extremities Exam Additional comments: Right lower extremity focused. VASC: DP and PT pulses non-palpable secondary to non-pitting edema. Temperature gradient runs warm to cool within normal limits. DERM: Distal tuft, medial aspect and dorsal apect of 3rd digit show regressing edema and bulla covering underlying potential ulcerative bed with gree-hued discoloration. No fluctuance noted. No open lesions, no active drainage. NEURO: sensation is grossly absent to level of digits MUSCK: No gross deformities noted. - Neurological Exam Neurological Exam: Alert, Awake, Oriented x3 - Psychiatric Exam Psychiatric exam: Normal Affect, Normal Mood - Skin Skin Exam: Normal Color, Warm Assessment and Plan - Assessment and Plan (Free Text) Assessment: 61 year old diabetic female with left 3rd digit cellulits. Plan: Pt evaluated and treated with attending Dr. Spence present. Chart, labs, and vitals reviewed. -SHON/PVR & Arterial dopplers show adequate arterial blood-flow. -Bone scan reviewed, results show-increased uptake in right foot distal digits, potential for acute digital OM. -Potential for MRI w/ contrast discussed with ID but due to pt's renal disease and dysfunction, potential for harm is too great. Vascular note appreciated Continue IV abx per ID Dressed digit with 1/4 strength Dakins Solution wet-to-dry. -Podiatry recommending continued IV ABX for 4-6 weeks. Podiary will continue to follow patient while inhouse
--- NOTE | 2017-02-04 16:29 | CP.PCM.PN ---
Subjective - Date & Time of Evaluation Date of Evaluation: 02/04/17 Time of Evaluation: 09:00 - Subjective Subjective: iv rx reordered afebrile nad f/u right 2nd digit ulcer and redness. Right 3rd digit shows localized edema and erythema. There is no purulence noted or malodor. Slight bleeding tissue noted. - amp likely to heal if performed. MRI on hold due to pt impaired renal function. To cont with local wound care for now with IV abx. Objective - Vital Signs/Intake and Output Vital Signs (last 24 hours): Temp Pulse Resp BP Pulse Ox 98.2 F 72 20 142/83 95 02/04/17 08:00 02/04/17 08:00 02/04/17 08:00 02/04/17 08:00 02/04/17 08:00 Intake and Output: 02/04/17 02/04/17 06:59 18:59 Intake Total 290 250 Balance 290 250 - Medications Medications: Current Medications Acetaminophen (Tylenol 325mg Tab) 650 mg PO Q4 PRN PRN Reason: Pain, moderate (4-7) Last Admin: 02/04/17 10:26 Dose: 650 mg Amlodipine Besylate (Norvasc) 10 mg PO DAILY [facility] Last Admin: 02/04/17 10:27 Dose: 10 mg Enoxaparin Sodium (Lovenox) 30 mg SC DAILY [facility] Last Admin: 02/04/17 10:27 Dose: 30 mg Piperacillin Sod/Tazobactam Sod (Zosyn 2.25 Gm Iv Premix) 50 mls @ 100 mls/hr IVPB Q8H [facility] Last Admin: 02/04/17 11:24 Dose: 100 mls/hr Vancomycin HCl 500 mg/ Sodium (Chloride) 100 mls @ 100 mls/hr IVPB TTS [facility] Last Admin: 02/03/17 11:03 Dose: 100 mls/hr Insulin Aspart (Novolog) 40 unit SC TIDCC [facility] Last Admin: 02/04/17 12:41 Dose: Not Given Insulin Glargine (Lantus) 50 unit SC HS [facility] Last Admin: 02/03/17 22:49 Dose: Not Given Losartan Potassium (Cozaar) 100 mg PO DAILY [facility] Last Admin: 02/04/17 10:27 Dose: 100 mg Pantoprazole Sodium (Protonix Ec Tab) 40 mg PO DAILY [facility] Last Admin: 02/04/17 10:27 Dose: 40 mg Rosuvastatin Calcium (Crestor) 10 mg PO HS [facility] Last Admin: 02/03/17 21:29 Dose: 10 mg Sodium Hypochlorite (Dakins Solution 0.125%) 1 appl TOP DAILY [facility] Last Admin: 02/04/17 11:20 Dose: Not Given - Labs Labs: 02/03/17 07:30 02/03/17 07:30 - Constitutional Appears: Non-toxic, Chronically Ill - Head Exam Head Exam: NORMOCEPHALIC - Eye Exam Eye Exam: absent: Scleral icterus - ENT Exam ENT Exam: Mucous Membranes Dry - Neck Exam Neck Exam: absent: Lymphadenopathy - Respiratory Exam Respiratory Exam: Decreased Breath Sounds, Clear to Ausculation Bilateral - Cardiovascular Exam Cardiovascular Exam: REGULAR RHYTHM, +S1, +S2 - GI/Abdominal Exam GI & Abdominal Exam: Distended, Soft. absent: Tenderness - Rectal Exam Rectal Exam: Deferred - Exam Exam: NORMAL INSPECTION - Extremities Exam Extremities Exam: Pedal Edema. absent: Calf Tenderness, Tenderness - Back Exam Back Exam: absent: CVA tenderness (L), CVA tenderness (R) - Neurological Exam Neurological Exam: Alert, Awake, Oriented x3 - Psychiatric Exam Psychiatric exam: Normal Mood - Skin Skin Exam: Dry Assessment and Plan (1) Cellulitis of right foot Status: Acute (2) Diabetic foot ulcer associated with type 2 diabetes mellitus Status: Acute (3) Obesity (BMI 30.0-34.9) Status: Acute (4) CKD (chronic kidney disease) requiring chronic dialysis Status: Acute
--- NOTE | 2017-02-04 17:38 | VASCLAB ---
PROCEDURE: HISTORY: previous bypass on left COMPARISON: None available. TECHNIQUE: Grayscale and duplex Doppler evaluation of the bilateral common femoral, femoral, profunda femoral, popliteal, posterior tibial, anterior tibial and dorsalis pedis arteries was performed. Report prepared by DEBORAH White, RVT FINDINGS: RIGHT LOWER EXTREMITY: * Common Femoral Artery: Peak Systolic Velocity - 305: Doppler Waveform: Biphasic: Plaque description - * Profunda Femoral Artery: Peak Systolic Velocity - 120: Doppler Waveform: Biphasic.: Plaque description - * Femoral Artery o Proximal Segment: Peak Systolic Velocity - 245: Doppler Waveform: Biphasic: Plaque description - o Middle Segment: Peak Systolic Velocity - 274: Doppler Waveform: Biphasic: Plaque description - o Distal Segment: Peak Systolic Velocity - 169: Doppler Waveform: Biphasic: Plaque description - * Popliteal Artery o Proximal Segment: Peak Systolic Velocity - 138: Doppler Waveform: Biphasic: Plaque description - o Middle Segment: Peak Systolic Velocity - 114: Doppler Waveform: Biphasic: Plaque description - o Distal Segment: Peak Systolic Velocity - 204: Doppler Waveform: Biphasic: Plaque description - * Posterior Tibial Artery: Peak Systolic Velocity - 182: Doppler Waveform: Biphasic: Plaque description - * Anterior Tibial Artery: Peak Systolic Velocity - 0: Doppler Waveform: Absent: Plaque description - * Dorsalis Pedis Artery: Peak Systolic Velocity - 69: Doppler Waveform: Monophasic: Plaque description - LEFT LOWER EXTREMITY: * Common Femoral Artery: Peak Systolic Velocity - 271: Doppler Waveform: Biphasic: Plaque description - * Profunda Femoral Artery: Peak Systolic Velocity - 141: Doppler Waveform: Biphasic: Plaque description - * Femoral Artery o Proximal Segment: Peak Systolic Velocity - 248: Doppler Waveform: Biphasic: Plaque description - * Popliteal Artery o Proximal Segment: Peak Systolic Velocity - : Doppler Waveform: : Plaque description - o Middle Segment: Peak Systolic Velocity - : Doppler Waveform: : Plaque description - o Distal Segment: Peak Systolic Velocity - : Doppler Waveform: : Plaque description - * Posterior Tibial Artery: Peak Systolic Velocity - 163: Doppler Waveform: Monophasic: Plaque description - * Anterior Tibial Artery: Peak Systolic Velocity - 0: Doppler Waveform: Monophasic: Plaque description - * Dorsalis Pedis Artery: Peak Systolic Velocity - 62: Doppler Waveform: Monophasic: Plaque description - OTHER FINDINGS: Dr. Valles notified about the findings. IMPRESSION: RIGHT: Possible occlusion of the right mid anterior tibial artery. 50-75% stenosis of the right common femoral, proximal and mid superficial femoral and distal popliteal arteries. 30-49% stenosis of the right distal superficial femoral and proximal posterior tibial arteries. LEFT: Possible occlusion of the left mid anterior tibial artery. 50-75% stenosis of the left common femoral and proximal superficial femoral arteries. Patent left mid superficial femoral to tibial peroneal trunk bypass graft with normal flow velocities.
--- NOTE | 2017-02-04 19:11 | CP.PCM.PN ---
Subjective - Date & Time of Evaluation Date of Evaluation: 02/04/17 Time of Evaluation: 19:10 - Subjective Subjective: pt seen and examined, follow up consult is dictated #[id number] check cbc,bmp,pth, 24 hr up,cr,cr cl continue iv abx Objective - Vital Signs/Intake and Output Vital Signs (last 24 hours): Temp Pulse Resp BP Pulse Ox 97.9 F 80 20 154/78 H 98 02/04/17 16:00 02/04/17 16:00 02/04/17 16:00 02/04/17 16:00 02/04/17 16:00 Intake and Output: 02/04/17 02/05/17 18:59 06:59 Intake Total 250 Balance 250 - Medications Medications: Current Medications Acetaminophen (Tylenol 325mg Tab) 650 mg PO Q4 PRN PRN Reason: Pain, moderate (4-7) Last Admin: 02/04/17 18:34 Dose: 650 mg Amlodipine Besylate (Norvasc) 10 mg PO DAILY [facility] Last Admin: 02/04/17 10:27 Dose: 10 mg Enoxaparin Sodium (Lovenox) 30 mg SC DAILY [facility] Last Admin: 02/04/17 10:27 Dose: 30 mg Piperacillin Sod/Tazobactam Sod (Zosyn 2.25 Gm Iv Premix) 50 mls @ 100 mls/hr IVPB Q8H [facility] Last Admin: 02/04/17 17:37 Dose: 100 mls/hr Vancomycin HCl 500 mg/ Sodium (Chloride) 100 mls @ 100 mls/hr IVPB TTS [facility] Last Admin: 02/03/17 11:03 Dose: 100 mls/hr Insulin Aspart (Novolog) 40 unit SC TIDCC [facility] Last Admin: 02/04/17 17:38 Dose: 40 unit Insulin Glargine (Lantus) 50 unit SC HS [facility] Last Admin: 02/03/17 22:49 Dose: Not Given Losartan Potassium (Cozaar) 100 mg PO DAILY [facility] Last Admin: 02/04/17 10:27 Dose: 100 mg Pantoprazole Sodium (Protonix Ec Tab) 40 mg PO DAILY [facility] Last Admin: 02/04/17 10:27 Dose: 40 mg Rosuvastatin Calcium (Crestor) 10 mg PO HS [facility] Last Admin: 02/03/17 21:29 Dose: 10 mg Sodium Hypochlorite (Dakins Solution 0.125%) 1 appl TOP DAILY [facility] Last Admin: 02/04/17 11:20 Dose: Not Given - Labs Labs: 02/03/17 07:30 02/03/17 07:30
--- NOTE | 2017-02-04 20:21 | CP.PCM.PN ---
Subjective - Date & Time of Evaluation Date of Evaluation: 02/04/17 Time of Evaluation: 01:40 - Subjective Subjective: Patient seen patient stays mostly in bed, but is ambulatory, is conversant - answers accurately, denies depression Discussion with Podiatry- patient refuses amputation, patient wants to try extermination inspector antibiotic discussed with staff with ID input- for extermination inspector antibiotic Objective - Vital Signs/Intake and Output Vital Signs (last 24 hours): Temp Pulse Resp BP Pulse Ox 97.9 F 80 20 154/78 H 98 02/04/17 16:00 02/04/17 16:00 02/04/17 16:00 02/04/17 16:00 02/04/17 16:00 Intake and Output: 02/04/17 02/05/17 18:59 06:59 Intake Total 250 Balance 250 - Medications Medications: Current Medications Acetaminophen (Tylenol 325mg Tab) 650 mg PO Q4 PRN PRN Reason: Pain, moderate (4-7) Last Admin: 02/04/17 18:34 Dose: 650 mg Amlodipine Besylate (Norvasc) 10 mg PO DAILY [facility] Last Admin: 02/04/17 10:27 Dose: 10 mg Enoxaparin Sodium (Lovenox) 30 mg SC DAILY [facility] Last Admin: 02/04/17 10:27 Dose: 30 mg Piperacillin Sod/Tazobactam Sod (Zosyn 2.25 Gm Iv Premix) 50 mls @ 100 mls/hr IVPB Q8H [facility] Last Admin: 02/04/17 17:37 Dose: 100 mls/hr Vancomycin HCl 500 mg/ Sodium (Chloride) 100 mls @ 100 mls/hr IVPB TTS [facility] Last Admin: 02/03/17 11:03 Dose: 100 mls/hr Insulin Aspart (Novolog) 40 unit SC TIDCC [facility] Last Admin: 02/04/17 17:38 Dose: 40 unit Insulin Glargine (Lantus) 50 unit SC HS [facility] Last Admin: 02/03/17 22:49 Dose: Not Given Losartan Potassium (Cozaar) 100 mg PO DAILY [facility] Last Admin: 02/04/17 10:27 Dose: 100 mg Pantoprazole Sodium (Protonix Ec Tab) 40 mg PO DAILY [facility] Last Admin: 02/04/17 10:27 Dose: 40 mg Rosuvastatin Calcium (Crestor) 10 mg PO [facility] Last Admin: 02/03/17 21:29 Dose: 10 mg Sodium Hypochlorite (Dakins Solution 0.125%) 1 appl TOP DAILY [facility] Last Admin: 02/04/17 11:20 Dose: Not Given - Labs Labs: 02/03/17 07:30 02/03/17 07:30 - Constitutional Appears: Well, Non-toxic - Head Exam Head Exam: ATRAUMATIC, NORMOCEPHALIC - Eye Exam Eye Exam: Normal appearance - ENT Exam ENT Exam: Mucous Membranes Moist - Respiratory Exam Respiratory Exam: Clear to Ausculation Bilateral, NORMAL BREATHING PATTERN - Cardiovascular Exam Cardiovascular Exam: REGULAR RHYTHM - GI/Abdominal Exam GI & Abdominal Exam: Soft. absent: Tenderness - Extremities Exam Extremities Exam: Full ROM. absent: Pedal Edema (, 3rd toe lsion- still swollen , reddish no pain,blackish) - Neurological Exam Neurological Exam: Alert, Awake, Normal Gait, Oriented x3 - Psychiatric Exam Psychiatric exam: Normal Affect, Normal Mood - Skin Skin Exam: Intact (exceot for the 3rd toe ), Normal Color Assessment and Plan - Assessment and Plan (Free Text) Assessment: Patient with Dm2 CRI Hypertension admitted for 3rd toe ulcer and cellulitis- Patient refuses amputation at this point, patient wants to try extermination inspector antibiotic discussd with staff- need ID input and advise
--- NOTE | 2017-02-04 20:43 | PN ---
DATE: 02/03/2017 The patient is located in room 370, bed A. REQUESTED BY: Dr. Silva REASON FOR FOLLOWUP: Chronic kidney disease and UTI, hypertension, for further evaluation. The patient is a 61-year-old elderly female with a history of long-standing hypertension, diabetes, hyperlipidemia, chronic kidney disease, peripheral vascular disease status post left lower extremity bypass, was admitted with a right 3rd toe infection. Bone scan is consistent with possible osteomyelitis, tuft of the 3rd toe. The patient is not in acute distress and denies any complaints. No chest pain, no palpitations, no fever, no cough. The patient does complain of bilateral lower extremity swelling. The patient has a dressing to the right foot. VITAL SIGNS/PHYSICAL EXAMINATION: Blood pressure 154/80, pulse 83, respirations 20, temperature 98, saturation 96%. Height 5 feet 4 inches, and weight is 189 pounds. HENT AND PHYSICAL EXAMINATION: The patient is a 61-year-old elderly female, well-built, well-nourished, not in acute distress. HENT: Pupils normal, reactive to light and accommodation. Conjunctivae pink, sclerae anicteric. Tongue is moist. Trachea midline. LUNGS: Symmetric on both sides. Bilateral breath sounds present. Clear on auscultation. CARDIOVASCULAR SYSTEM: [place] at the 5th intercostal space midclavicular line. S1 and S2 audible. No murmur or gallop. ABDOMEN: Normal in appearance, soft, tympanic. No guarding, no rigidity. No hepatosplenomegaly. CENTRAL NERVOUS SYSTEM: The patient is alert, awake, oriented x 3, nonfocal on examination. Cranial nerves II-XII grossly intact. Sensory and motor system is within normal limits. EXTREMITIES: No cyanosis, no clubbing. The patient has 1-2+ edema in both lower extremities. The patient has a dressing to the right foot. CURRENT MEDICATIONS: Include as follows: Losartan 100 mg daily, Crestor 10 mg at bedtime, and insulin glargine 50 units subQ at bedtime, and Lovenox 30 mg subq daily, amlodipine 10 mg daily, and insulin aspart 40 units subQ t.i.d., and Zosyn 2.25 g q. 8 hours, Protonix 40 mg daily, and Tylenol and vancomycin 500 mg 3 times a week Blood culture x 2 negative day 3 from 01/30/2017. In summary, the patient is a 61-year-old elderly female with a history of hypertension, diabetes, hyperlipidemia, with right 3rd toe infection and discoloration. 1. Renal failure, [id number] kidney disease versus chronic kidney disease , rule out diabetic nephropathy versus hypertensive nephrosclerosis. 2. Urinary tract infection. 3. Right 3rd toe infection. Rule out osteomyelitis. Continue antibiotics, Zosyn and vancomycin, and will check a 24-hour urine protein and creatinine clearance, and also will check PTH intact level. Labs reviewed as of 02/03/2017: WBC 7.6, hemoglobin 11.6, hematocrit is 34.8, platelets 325. Sodium 140, potassium 4.3, chloride 104, CO2 of 22, BUN 35, creatinine 3.2, glucose 128, calcium 8.4. Repeat urine analysis: Yellow, clear , pH 7, protein 2+, glucose 2+, ketones negative, blood negative, nitrites negative, bilirubin negative, urobilinogen negative, leukocyte esterase negative , WBC 4, RBC 2. Will follow with you. Thank you for allowing me to participate in your patient' s care. Shaniqua Wang MD cc: [id number] TT: 02/03/2017 23:16:17 Confirmation # [id number] Dictation # [id number] MTDD
[2017-02-04] MEDS: (Lantus) Insulin Glargine, Recombinant SC SCH (22:12)
--- NOTE | 2017-02-04 22:12 | PN ---
DATE: 02/04/2017 The patient is located in room 370, bed A. REQUESTED BY: Dr. Donna Melendez. REASON FOR FOLLOWUP: Chronic kidney disease for further evaluation. HISTORY OF PRESENT ILLNESS: The patient is a 61-year-old female with a history of longstan ding hypertension, diabetes, hyperlipidemia, peripheral vascular disease, status post left lower extr emity bypass, was admitted with right 3rd toe infection and discoloration. Bone scan is consistent w ith possible osteomyelitis of the tuft of the right 3rd toe. The patient is on IV antibiotics. The patient denies any headache, dizziness. Denies any chest pain, palpitations. Denies any fever or co ugh. No abdominal pain, no nausea, vomiting, diarrhea. PHYSICAL EXAMINATION: VITAL SIGNS: As follows: Blood pressure is 154/78, pulse 80, respiration 20, temperature 97.9, satu ration 98%. Height 5 feet 4 inches and weight is 189 pounds. GENERAL: The patient is a 61-year-old obese female, well built, well nourished, not in acu te distress. HEENT: Pupils normal, reactive to light and accommodation. Conjunctivae pink. Sclerae anicteric. Tongue is moist. NECK: Trachea midline. LUNGS: Symmetric on both sides. Bilateral breath sounds present. Clear on auscultation. CARDIOVASCULAR: [place] at the 5th intercostal space midclavicular line. S1 and S2 audible. No murmur or gallop. ABDOMEN: Normal in appearance, soft, tympanic. No guarding, no rigidity. No hepatosplenomegaly. CENTRAL NERVOUS SYSTEM: The patient is alert, awake, oriented x 3, nonfocal on examination. Cranial nerves II through XII grossly intact. Sensory and motor system is within normal limits. EXTREMITIES: No cyanosis, no clubbing. The patient has 2+ edema in both lower extremities and also the patient has a dressing to the right foot. CURRENT MEDICATIONS: Include as follows, Cozaar 100 mg p.o. daily, Crestor 10 mg at bedtime, Lantus 50 units subQ at bedtime, Lovenox 30 mg subQ daily, Norvasc 10 mg daily, NovoLog 40 units q. t.i.d., Protonix 40 mg daily, Tylenol. Vancomycin 500 mg 3 times a week, Sunday, , Sunday. Zosyn 2.25 grams q. 8 hours. LABORATORY DATA: No new labs are available for today. Accu-Cheks are 200 and 152. SUMMARY: The patient is a 61-year-old elderly obese female with history of hypertension, d iabetes, hyperlipidemia, peripheral vascular disease, proteinuria, chronic kidney disease with infect ed right 3rd toe. 1. Chronic kidney disease stage IV, most likely secondary to diabetic nephropathy, cannot rule out u nderlying combination of hypertensive nephrosclerosis and diabetic nephropathy. 2. Urinary tract infection. 3. Infected right 3rd toe, rule out osteomyelitis. Continue antibiotics, Zosyn and vancomycin, and will repeat CBC, BMP in the a.m. We will check a 24-hour urine protein, creatinine and creatinine cl earance and also we will check PTH intact level. Repeat CBC, BMP in the a.m. We will follow with ally lazo. Thank you for allowing me to participate in your patient's care. Shaniqua Wang MD cc: [id number] TT: 02/04/2017 22:11:09 Confirmation # [id number] Dictation # [id number]
[2017-02-05] MEDS: Piperacill/Tazo 2.25gm in Dex 50 ML IVPB SCH ×3 (02:51→18:00)
[2017-02-05] MEDS ORDERED: (Lantus) Insulin Glargine, Recombinant SC SCH (06:56)
[2017-02-05 07:45] LABS: BASO # 0.1 K/uL (0.0-0.2); BASO % 0.9 % (0.0-2.0); EOS # 0.4 K/uL (0.0-0.7); EOS % 5.2 % (0.0-4.0); LYMPH # 1.7 K/uL (1.0-4.3); LYMPH % 21.1 % (20.0-40.0); MEAN CELL VOLUME 85.4 fL (81.0-99.0); MEAN CORPUSCULAR HEMOGLOBIN 28.4 pg (27.0-31.0); MEAN CORPUSCULAR HGB CONC 33.3 g/dL (33.0-37.0); MEAN PLATELET VOLUME 7.4 fL (7.2-11.7); MONO # 0.4 K/uL (0.0-0.8); MONO % 5.5 % (0.0-10.0); RED CELL DISTRIBUTION WIDTH 13.1 % (11.5-14.5); WHITE BLOOD COUNT 8.1 K/uL (4.8-10.8)
[2017-02-05 07:55] LABS: POTASSIUM 4.1 mmol/L (3.6-5.2)
[2017-02-05 07:58] LABS: CALCIUM 8.4 mg/dl (8.6-10.4)
[2017-02-05] MEDS ORDERED: (Novolog) Insulin Aspart, Recombinant 100 u/ml 10 ml vial SC SCH ×2 (08:00→12:00)
[2017-02-05] MEDS: Pantoprazole 40 mg EC Tab PO SCH (09:45)
[2017-02-05] MEDS: Enoxaparin 30 mg Syringe SC SCH (09:45)
--- NOTE | 2017-02-05 12:38 | CP.PCM.PN ---
Subjective - Date & Time of Evaluation Date of Evaluation: 02/05/17 Time of Evaluation: 12:35 - Subjective Subjective: Pt seen at bedside for f/u right 3rd digit ulcer. Pt in NAD. Discussed options for treatment of right 3rd digit - pt refuses amputation and wants to cont with IV abx. Discussed case with Dr. Silva and relayed pt wishes that she refuses amp and wants to try joint terminal attack controller IV abx. Will cont with local wound care for now and IV abx as per ID. Pt will most likely need transfer to subacute rehab for joint terminal attack controller IV abx - to be determined by ID. Objective - Vital Signs/Intake and Output Vital Signs (last 24 hours): Temp Pulse Resp BP Pulse Ox 98.6 F 67 20 135/75 95 02/05/17 08:00 02/05/17 08:00 02/05/17 08:00 02/05/17 08:00 02/05/17 08:00 Intake and Output: 02/05/17 02/05/17 06:59 18:59 Intake Total 290 Balance 290 - Medications Medications: Current Medications Acetaminophen (Tylenol 325mg Tab) 650 mg PO Q4 PRN PRN Reason: Pain, moderate (4-7) Last Admin: 02/04/17 18:34 Dose: 650 mg Amlodipine Besylate (Norvasc) 10 mg PO DAILY [facility] Last Admin: 02/05/17 09:45 Dose: 10 mg Enoxaparin Sodium (Lovenox) 30 mg SC DAILY [facility] Last Admin: 02/05/17 09:45 Dose: 30 mg Piperacillin Sod/Tazobactam Sod (Zosyn 2.25 Gm Iv Premix) 50 mls @ 100 mls/hr IVPB Q8H [facility] Last Admin: 02/05/17 09:50 Dose: 100 mls/hr Vancomycin HCl 500 mg/ Sodium (Chloride) 100 mls @ 100 mls/hr IVPB TTS [facility] Last Admin: 02/03/17 11:03 Dose: 100 mls/hr Insulin Aspart (Novolog) 40 unit SC TIDCC [facility] Insulin Glargine (Lantus) 60 unit SC HS [facility] Losartan Potassium (Cozaar) 100 mg PO DAILY [facility] Last Admin: 02/05/17 09:45 Dose: 100 mg Pantoprazole Sodium (Protonix Ec Tab) 40 mg PO DAILY [facility] Last Admin: 02/05/17 09:45 Dose: 40 mg Rosuvastatin Calcium (Crestor) 10 mg PO HS [facility] Last Admin: 02/04/17 22:12 Dose: 10 mg Sodium Hypochlorite (Dakins Solution 0.125%) 1 appl TOP DAILY [facility] Last Admin: 02/05/17 09:45 Dose: Not Given - Labs Labs: 02/05/17 07:31 02/05/17 07:31
--- NOTE | 2017-02-05 13:44 | CP.PCM.PN ---
Subjective - Date & Time of Evaluation Date of Evaluation: 02/05/17 Time of Evaluation: 13:44 - Subjective Subjective: pt seen and examined, follow up consult is dictated #[id number] Objective - Vital Signs/Intake and Output Vital Signs (last 24 hours): Temp Pulse Resp BP Pulse Ox 98.6 F 67 20 135/75 95 02/05/17 08:00 02/05/17 13:11 02/05/17 08:00 02/05/17 08:00 02/05/17 08:00 Intake and Output: 02/05/17 02/05/17 06:59 18:59 Intake Total 290 400 Balance 290 400 - Medications Medications: Current Medications Acetaminophen (Tylenol 325mg Tab) 650 mg PO Q4 PRN PRN Reason: Pain, moderate (4-7) Last Admin: 02/04/17 18:34 Dose: 650 mg Amlodipine Besylate (Norvasc) 10 mg PO DAILY [facility] Last Admin: 02/05/17 09:45 Dose: 10 mg Enoxaparin Sodium (Lovenox) 30 mg SC DAILY [facility] Last Admin: 02/05/17 09:45 Dose: 30 mg Piperacillin Sod/Tazobactam Sod (Zosyn 2.25 Gm Iv Premix) 50 mls @ 100 mls/hr IVPB Q8H [facility] Last Admin: 02/05/17 09:50 Dose: 100 mls/hr Vancomycin HCl 500 mg/ Sodium (Chloride) 100 mls @ 100 mls/hr IVPB TTS [facility] Last Admin: 02/03/17 11:03 Dose: 100 mls/hr Insulin Aspart (Novolog) 40 unit SC TIDCC [facility] Insulin Glargine (Lantus) 60 unit SC HS [facility] Losartan Potassium (Cozaar) 100 mg PO DAILY [facility] Last Admin: 02/05/17 09:45 Dose: 100 mg Pantoprazole Sodium (Protonix Ec Tab) 40 mg PO DAILY [facility] Last Admin: 02/05/17 09:45 Dose: 40 mg Rosuvastatin Calcium (Crestor) 10 mg PO HS [facility] Last Admin: 02/04/17 22:12 Dose: 10 mg Sodium Hypochlorite (Dakins Solution 0.125%) 1 appl TOP DAILY [facility] Last Admin: 02/05/17 09:45 Dose: Not Given - Labs Labs: 02/05/17 07:31 02/05/17 07:31
[2017-02-05] MEDS: (Novolog) Insulin Aspart, Recombinant 100 u/ml 10 ml vial SC SCH (17:00)
--- NOTE | 2017-02-05 17:05 | CP.PCM.PN ---
Subjective - Date & Time of Evaluation Date of Evaluation: 02/05/17 Time of Evaluation: 01:40 - Subjective Subjective: Patient seen, by bedside, patient is form of no amputation- to try long tern antibiotic- refuses subacute discussed with staff and case manger awaiting ID recommendation Objective - Vital Signs/Intake and Output Vital Signs (last 24 hours): Temp Pulse Resp BP Pulse Ox 98.6 F 67 20 135/75 95 02/05/17 08:00 02/05/17 13:11 02/05/17 08:00 02/05/17 08:00 02/05/17 08:00 Intake and Output: 02/05/17 02/05/17 06:59 18:59 Intake Total 290 400 Balance 290 400 - Medications Medications: Current Medications Acetaminophen (Tylenol 325mg Tab) 650 mg PO Q4 PRN PRN Reason: Pain, moderate (4-7) Last Admin: 02/04/17 18:34 Dose: 650 mg Amlodipine Besylate (Norvasc) 10 mg PO DAILY [facility] Last Admin: 02/05/17 09:45 Dose: 10 mg Enoxaparin Sodium (Lovenox) 30 mg SC DAILY [facility] Last Admin: 02/05/17 09:45 Dose: 30 mg Piperacillin Sod/Tazobactam Sod (Zosyn 2.25 Gm Iv Premix) 50 mls @ 100 mls/hr IVPB Q8H [facility] Last Admin: 02/05/17 09:50 Dose: 100 mls/hr Vancomycin HCl 500 mg/ Sodium (Chloride) 100 mls @ 100 mls/hr IVPB TTS [facility] Last Admin: 02/03/17 11:03 Dose: 100 mls/hr Insulin Aspart (Novolog) 40 unit SC TIDCC [facility] Insulin Glargine (Lantus) 60 unit SC HS [facility] Losartan Potassium (Cozaar) 100 mg PO DAILY [facility] Last Admin: 02/05/17 09:45 Dose: 100 mg Pantoprazole Sodium (Protonix Ec Tab) 40 mg PO DAILY [facility] Last Admin: 02/05/17 09:45 Dose: 40 mg Rosuvastatin Calcium (Crestor) 10 mg PO HS [facility] Last Admin: 02/04/17 22:12 Dose: 10 mg Sodium Hypochlorite (Dakins Solution 0.125%) 1 appl TOP DAILY [facility] Last Admin: 02/05/17 09:45 Dose: Not Given - Labs Labs: 02/05/17 07:31 02/05/17 07:31 - Constitutional Appears: Well, Non-toxic, No Acute Distress - Head Exam Head Exam: ATRAUMATIC, NORMOCEPHALIC - Eye Exam Eye Exam: Normal appearance - ENT Exam ENT Exam: Mucous Membranes Moist - Neck Exam Neck Exam: Full ROM. absent: Tenderness - Respiratory Exam Respiratory Exam: Clear to Ausculation Bilateral, NORMAL BREATHING PATTERN - Cardiovascular Exam Cardiovascular Exam: REGULAR RHYTHM - GI/Abdominal Exam GI & Abdominal Exam: Soft, Normal Bowel Sounds. absent: Tenderness - Extremities Exam Extremities Exam: Full ROM (no edema other than swelling of right foot0 3rd toe blackish dry, ) - Back Exam Back Exam: Full ROM. absent: tenderness - Neurological Exam Neurological Exam: Alert, Awake, Normal Gait, Oriented x3 - Psychiatric Exam Psychiatric exam: Normal Affect, Normal Mood - Skin Skin Exam: Intact (other thant right 3rd toe ), Normal Color Assessment and Plan - Assessment and Plan (Free Text) Assessment: Patient with DM@, Hypertension PAD, CRI admitted for Diabetic Ulcer- 3rd toe right foot- patient refuses amputation as recommended by podiatry, patient wants to try IV antibiotic refuses sub acute relay of discussion with staff and with case manger will need ID recommendation plan for discharge with above plan Diabetes medication adjustment accordingly CRI_ as per renal
--- NOTE | 2017-02-05 17:07 | CP.PCM.PN ---
Subjective - Date & Time of Evaluation Date of Evaluation: 02/05/17 Time of Evaluation: 17:06 - Subjective Subjective: Surgery: Dr. Valles Patient doing well. OOB to bathroom this am. Pain controlled. Tolerating diet. Denies f/c/n/v. Objective - Vital Signs/Intake and Output Vital Signs (last 24 hours): Temp Pulse Resp BP Pulse Ox 98.6 F 67 20 135/75 95 02/05/17 08:00 02/05/17 13:11 02/05/17 08:00 02/05/17 08:00 02/05/17 08:00 Intake and Output: 02/05/17 02/05/17 06:59 18:59 Intake Total 290 400 Balance 290 400 - Medications Medications: Current Medications Acetaminophen (Tylenol 325mg Tab) 650 mg PO Q4 PRN PRN Reason: Pain, moderate (4-7) Last Admin: 02/04/17 18:34 Dose: 650 mg Amlodipine Besylate (Norvasc) 10 mg PO DAILY [facility] Last Admin: 02/05/17 09:45 Dose: 10 mg Enoxaparin Sodium (Lovenox) 30 mg SC DAILY [facility] Last Admin: 02/05/17 09:45 Dose: 30 mg Piperacillin Sod/Tazobactam Sod (Zosyn 2.25 Gm Iv Premix) 50 mls @ 100 mls/hr IVPB Q8H [facility] Last Admin: 02/05/17 09:50 Dose: 100 mls/hr Vancomycin HCl 500 mg/ Sodium (Chloride) 100 mls @ 100 mls/hr IVPB TTS [facility] Last Admin: 02/03/17 11:03 Dose: 100 mls/hr Insulin Aspart (Novolog) 40 unit SC TIDCC [facility] Insulin Glargine (Lantus) 60 unit SC HS [facility] Losartan Potassium (Cozaar) 100 mg PO DAILY [facility] Last Admin: 02/05/17 09:45 Dose: 100 mg Pantoprazole Sodium (Protonix Ec Tab) 40 mg PO DAILY [facility] Last Admin: 02/05/17 09:45 Dose: 40 mg Rosuvastatin Calcium (Crestor) 10 mg PO HS [facility] Last Admin: 02/04/17 22:12 Dose: 10 mg Sodium Hypochlorite (Dakins Solution 0.125%) 1 appl TOP DAILY [facility] Last Admin: 02/05/17 09:45 Dose: Not Given - Labs Labs: 02/05/17 07:31 02/05/17 07:31 - Constitutional Appears: Well, Non-toxic, No Acute Distress - Head Exam Head Exam: ATRAUMATIC, NORMOCEPHALIC - Eye Exam Eye Exam: EOMI, Normal appearance - ENT Exam ENT Exam: Mucous Membranes Moist - Extremities Exam Additional comments: LE wrapped w/ Kerlex dressing. CDI. Dressing changes per podiatry. Assessment and Plan - Assessment and Plan (Free Text) Assessment: 61 y/o female w/ right toe infection/osteo Plan: -no evidence of significant PVD -no surgical intervention at this time -further wound care per podiatry -d/w Dr. Reena Davis PGY1
[2017-02-05 19:11] LABS: Interpretation Negative (Negative)
--- NOTE | 2017-02-05 21:05 | PN ---
DATE: 02/05/2017 The patient is located in room 370, bed A. REQUESTED BY: Dr. Donna Melendez. REASON FOR FOLLOWUP: Chronic kidney disease. HISTORY OF PRESENT ILLNESS: The patient is a 61-year-old elderly obese female with a past medical history significant for longstanding hypertension, diabetes, hyperlipidemia, peripheral vascu lar disease, status post left lower extremity bypass, chronic kidney disease, was admitted with right 3rd toe infection after accidently injury to the toe. The patient was also found to have a UTI on I V antibiotics. The patient is feeling better, not in acute distress and denies any complaint. No ch est pain, no palpitations, no fever, no cough, no abdominal pain, no nausea, no vomiting, no diarrhea , and no dysuria. PHYSICAL EXAMINATION: VITAL SIGNS: Blood pressure 135/75, pulse 67, respirations 20, temperature 98.6, saturation 95%, hei ght 5 feet 4 inches and weight is 189 pounds. GENERAL: The patient is a 61-year-old obese elderly female, well built, well nourished, not in acute distress. HEENT: Pupils normal, reactive to light and accommodation. Conjunctivae pink. Sclerae anicteric. Tongue is moist. NECK: Trachea is midline. LUNGS: Symmetric on both sides. Bilateral breath sounds present. Clear on auscultation. CARDIOVASCULAR: [place] at the fifth intercostal space midclavicular line. S1 and S2 audible. No murm ur or gallop. ABDOMEN: Normal in appearance, soft, tympanic. No guarding, no rigidity. No hepatosplenomegaly. CENTRAL NERVOUS SYSTEM: The patient is alert, awake, oriented x 3, nonfocal on examination. Cranial nerves II through XII grossly intact. Sensory and motor system is within normal limits. EXTREMITIES: No cyanosis, no clubbing. The patient has 1-2+ edema in both lower extremities. The p atient also has a dressing to the right foot. CURRENT MEDICATIONS: Include as follows: Losartan 100 mg p.o. daily, Crestor 10 mg at bedtime, insu glen glargine 60 units subQ at bedtime, Lovenox 30 mg subQ daily, amlodipine 10 mg daily and insulin a spart 40 units subQ t.i.d., Zosyn 2.25 grams IV q. 8 hours, Protonix 40 mg daily, Tylenol, and vancom ycin 500 three times a week, Sunday, , Sunday. LABORATORY DATA: Include as follows: As of 02/05/2017. WBC 8.1, hemoglobin 11, hematocrit is 33, p latelets 292. Sodium 140, potassium 4.1, chloride 104, CO2 of 22, BUN 37, creatinine 3.2, glucose 13 2, calcium 8.4. A 24-hour urine volume is 1000 and creatinine clearance is about 14, and 24-hour uri ne protein calculated at 5,780 mg. SUMMARY: The patient is a 61-year-old elderly obese female with a history of longstanding diabetes, hypertension, hyperlipidemia, peripheral vascular disease with chronic kidney disease, was admitted with a UTI and also right 3rd toe infection and bone scan is positive for possible osteomyel itis of the tuft of the right 3rd toe on IV antibiotics. 1. Chronic kidney disease stage IV, most likely secondary to diabetic nephropathy with massive prote inuria. 2. Hypertension. Blood pressure is stable. Continue her current medications and continue [place], l osartan, and titrate medication as needed to keep the systolic blood pressure and diastolic below 130 /70. 3. Uncontrolled diabetes. 4. Osteomyelitis of the right 3rd toe. Continue to follow up with podiatry and continue antibiotics . Anti-Ghotra antibody is negative, double stranded DNA is negative. 5. Secondary hyperparathyroidism. PTH is 122 as of 02/04/2017. We will continue to monitor. Thank you for allowing me to participate in your patient's care. Shaniqua Wang MD cc: [id number] TT: 02/05/2017 21:05:29 Confirmation # [id number] Dictation # [id number]
[2017-02-06] MEDS: Piperacill/Tazo 2.25gm in Dex 50 ML IVPB SCH ×3 (02:03→17:40)
[2017-02-06] MEDS: (Novolog) Insulin Aspart, Recombinant 100 u/ml 10 ml vial SC SCH ×3 (08:00→17:40)
--- NOTE | 2017-02-06 10:22 | CP.PCM.PN ---
Subjective - Date & Time of Evaluation Date of Evaluation: 02/06/17 Time of Evaluation: 09:45 - Subjective Subjective: patient seen- patient stays most of the time in bed- encouraged ambulation- sugar goes up and down- Insulin adjusted accordingly by staff, currently no complaints Objective - Vital Signs/Intake and Output Vital Signs (last 24 hours): Temp Pulse Resp BP Pulse Ox 97.7 F 75 20 158/75 H 96 02/06/17 08:00 02/06/17 08:00 02/06/17 08:00 02/06/17 08:00 02/06/17 08:00 Intake and Output: 02/06/17 02/06/17 06:59 18:59 Intake Total 200 Balance 200 - Medications Medications: Current Medications Acetaminophen (Tylenol 325mg Tab) 650 mg PO Q4 PRN PRN Reason: Pain, moderate (4-7) Last Admin: 02/04/17 18:34 Dose: 650 mg Amlodipine Besylate (Norvasc) 10 mg PO DAILY [facility] Last Admin: 02/05/17 09:45 Dose: 10 mg Enoxaparin Sodium (Lovenox) 30 mg SC DAILY [facility] Last Admin: 02/05/17 09:45 Dose: 30 mg Piperacillin Sod/Tazobactam Sod (Zosyn 2.25 Gm Iv Premix) 50 mls @ 100 mls/hr IVPB Q8H [facility] Last Admin: 02/06/17 02:03 Dose: 100 mls/hr Vancomycin HCl 500 mg/ Sodium (Chloride) 100 mls @ 100 mls/hr IVPB TTS [facility] Last Admin: 02/03/17 11:03 Dose: 100 mls/hr Insulin Aspart (Novolog) 40 unit SC TIDCC [facility] Last Admin: 02/05/17 17:00 Dose: Not Given Insulin Glargine (Lantus) 60 unit SC HS [facility] Last Admin: 02/05/17 22:00 Dose: 60 u Losartan Potassium (Cozaar) 100 mg PO DAILY [facility] Last Admin: 02/05/17 09:45 Dose: 100 mg Pantoprazole Sodium (Protonix Ec Tab) 40 mg PO DAILY [facility] Last Admin: 02/05/17 09:45 Dose: 40 mg Rosuvastatin Calcium (Crestor) 10 mg PO HS [facility] Last Admin: 02/05/17 22:02 Dose: 10 mg Sodium Hypochlorite (Dakins Solution 0.125%) 1 appl TOP DAILY [facility] Last Admin: 02/05/17 09:45 Dose: Not Given - Labs Labs: 02/05/17 07:31 02/05/17 07:31 - Constitutional Appears: Well, Non-toxic - Head Exam Head Exam: ATRAUMATIC, NORMOCEPHALIC - Eye Exam Eye Exam: Normal appearance. absent: Nystagmus - ENT Exam ENT Exam: Mucous Membranes Moist - Neck Exam Neck Exam: Full ROM. absent: Tenderness - Respiratory Exam Respiratory Exam: Clear to Ausculation Bilateral, NORMAL BREATHING PATTERN - Cardiovascular Exam Cardiovascular Exam: REGULAR RHYTHM - GI/Abdominal Exam GI & Abdominal Exam: Soft. absent: Tenderness - Extremities Exam Extremities Exam: Full ROM (rrd toe right foot bandageg- same swollen, reddish blackish dry ) - Back Exam Back Exam: Full ROM. absent: tenderness - Neurological Exam Neurological Exam: Alert, Awake, Normal Gait, Oriented x3 - Psychiatric Exam Psychiatric exam: Normal Affect, Normal Mood - Skin Skin Exam: Intact (other than the 3rd toe ), Normal Color Assessment and Plan - Assessment and Plan (Free Text) Assessment: Patient with Diabetic ulcer 3rd toe right foot, on antibiotic, patient refuses procedure and subacute- planning for home nursing home antibiotic as discussed with staff , DM- up and down- on insulin adjusted accordingly CRI- aware PT continue monitoring
[2017-02-06] MEDS: Pantoprazole 40 mg EC Tab PO SCH (10:42)
[2017-02-06] MEDS: Enoxaparin 30 mg Syringe SC SCH (10:42)
[2017-02-06] MEDS ORDERED: (Lantus) Insulin Glargine, Recombinant SC SCH (11:31)
--- NOTE | 2017-02-06 12:06 | CP.PCM.PN ---
Subjective - Date & Time of Evaluation Date of Evaluation: 02/06/17 Time of Evaluation: 08:00 - Subjective Subjective: refusing surger possible d/c on IV rx with HD Vanco 500mwf / ancef 2g mwf x 5 more weeks Objective - Vital Signs/Intake and Output Vital Signs (last 24 hours): Temp Pulse Resp BP Pulse Ox 97.7 F 75 20 158/75 H 96 02/06/17 08:00 02/06/17 08:00 02/06/17 08:00 02/06/17 08:00 02/06/17 08:00 Intake and Output: 02/06/17 02/06/17 06:59 18:59 Intake Total 200 Balance 200 - Medications Medications: Current Medications Acetaminophen (Tylenol 325mg Tab) 650 mg PO Q4 PRN PRN Reason: Pain, moderate (4-7) Last Admin: 02/04/17 18:34 Dose: 650 mg Amlodipine Besylate (Norvasc) 10 mg PO DAILY [facility] Last Admin: 02/06/17 10:42 Dose: 10 mg Enoxaparin Sodium (Lovenox) 30 mg SC DAILY [facility] Last Admin: 02/06/17 10:42 Dose: Not Given Piperacillin Sod/Tazobactam Sod (Zosyn 2.25 Gm Iv Premix) 50 mls @ 100 mls/hr IVPB Q8H [facility] Last Admin: 02/06/17 10:40 Dose: 100 mls/hr Vancomycin HCl 500 mg/ Sodium (Chloride) 100 mls @ 100 mls/hr IVPB TTS [facility] Last Admin: 02/06/17 10:41 Dose: 100 mls/hr Insulin Aspart (Novolog) 40 unit SC TIDCC [facility] Last Admin: 02/05/17 17:00 Dose: Not Given Insulin Glargine (Lantus) 65 unit SC HS [facility] Losartan Potassium (Cozaar) 100 mg PO DAILY [facility] Last Admin: 02/06/17 10:42 Dose: 100 mg Pantoprazole Sodium (Protonix Ec Tab) 40 mg PO DAILY [facility] Last Admin: 02/06/17 10:42 Dose: 40 mg Rosuvastatin Calcium (Crestor) 10 mg PO HS [facility] Last Admin: 02/05/17 22:02 Dose: 10 mg Sodium Hypochlorite (Dakins Solution 0.125%) 1 appl TOP DAILY [facility] Last Admin: 02/06/17 10:43 Dose: Not Given - Labs Labs: 02/05/17 07:31 02/05/17 07:31 - Constitutional Appears: Chronically Ill - Head Exam Head Exam: NORMOCEPHALIC - Eye Exam Eye Exam: PERRL - ENT Exam ENT Exam: Mucous Membranes Dry - Neck Exam Neck Exam: absent: Lymphadenopathy - Respiratory Exam Respiratory Exam: Decreased Breath Sounds - Cardiovascular Exam Cardiovascular Exam: REGULAR RHYTHM - GI/Abdominal Exam GI & Abdominal Exam: Distended Assessment and Plan (1) Cellulitis of right foot Status: Acute (2) Diabetic foot ulcer associated with type 2 diabetes mellitus Status: Acute (3) Obesity (BMI 30.0-34.9) Status: Acute (4) CKD (chronic kidney disease) requiring chronic dialysis Status: Acute
--- NOTE | 2017-02-06 12:08 | CP.PCM.PN ---
<Dago Gee - Last Filed: 02/06/17 12:04> Subjective - Date & Time of Evaluation Date of Evaluation: 02/06/17 Time of Evaluation: 12:04 - Subjective Subjective: Pt seen at bedside for f/u right 3rd digit ulcer with new 2nd digit discoloration. Patient is up in bed in [facility]. Patient states that she does not want to go to [facility] but wants to go home. States that at home her is there who can help take care of her. Denies any other acute events. Denies any f/c/n/v/sob. Objective - Vital Signs/Intake and Output Vital Signs (last 24 hours): Temp Pulse Resp BP Pulse Ox 97.7 F 75 20 158/75 H 96 02/06/17 08:00 02/06/17 08:00 02/06/17 08:00 02/06/17 08:00 02/06/17 08:00 Intake and Output: 02/06/17 02/06/17 06:59 18:59 Intake Total 200 Balance 200 - Medications Medications: Current Medications Acetaminophen (Tylenol 325mg Tab) 650 mg PO Q4 PRN PRN Reason: Pain, moderate (4-7) Last Admin: 02/04/17 18:34 Dose: 650 mg Amlodipine Besylate (Norvasc) 10 mg PO DAILY [facility] Last Admin: 02/06/17 10:42 Dose: 10 mg Enoxaparin Sodium (Lovenox) 30 mg SC DAILY [facility] Last Admin: 02/06/17 10:42 Dose: Not Given Piperacillin Sod/Tazobactam Sod (Zosyn 2.25 Gm Iv Premix) 50 mls @ 100 mls/hr IVPB Q8H [facility] Last Admin: 02/06/17 10:40 Dose: 100 mls/hr Vancomycin HCl 500 mg/ Sodium (Chloride) 100 mls @ 100 mls/hr IVPB TTS [facility] Last Admin: 02/06/17 10:41 Dose: 100 mls/hr Insulin Aspart (Novolog) 40 unit SC TIDCC [facility] Last Admin: 02/05/17 17:00 Dose: Not Given Insulin Glargine (Lantus) 65 unit SC HS [facility] Losartan Potassium (Cozaar) 100 mg PO DAILY [facility] Last Admin: 02/06/17 10:42 Dose: 100 mg Pantoprazole Sodium (Protonix Ec Tab) 40 mg PO DAILY [facility] Last Admin: 02/06/17 10:42 Dose: 40 mg Rosuvastatin Calcium (Crestor) 10 mg PO HS [facility] Last Admin: 02/05/17 22:02 Dose: 10 mg Sodium Hypochlorite (Dakins Solution 0.125%) 1 appl TOP DAILY [facility] Last Admin: 02/06/17 10:43 Dose: Not Given - Labs Labs: 02/05/17 07:31 02/05/17 07:31 - Constitutional Appears: Well, Non-toxic, No Acute Distress - Skin Skin Exam: Erythema, Warm - Additional Findings Additional findings: Right lower extremity focused. VASC: DP and PT pulses non-palpable secondary to non-pitting edema. Temperature gradient runs warm to cool within normal limits. DERM: Distal tuft, medial aspect and dorsal apect of 3rd digit show mild edema with erythema with overlyin necrotic tissue; new erythema noted along the dorsal aspect of 2nd digit on R; No fluctuance noted. No open lesions, no active drainage. NEURO: sensation is grossly absent to level of digits MUSCK: No gross deformities noted. Assessment and Plan - Assessment and Plan (Free Text) Assessment: 61 y/o female with right 3rd digit cellulitis with emerging 2nd digit erythema. Plan: Ptaient evaluated and chart reviewed. Patient seen with Dr. Spence Noted worsening of the 3rd digit Reinforced that the best option for th epatient to keep digit intact would be ERIK for direct observation by staff. Still refusing at this time. Will follow while in house and Dr. Spence will f/u upon d/c. <Nima Spence - Last Filed: 02/06/17 12:15> Objective - Vital Signs/Intake and Output Vital Signs (last 24 hours): Temp Pulse Resp BP Pulse Ox 97.7 F 75 20 158/75 H 96 02/06/17 08:00 02/06/17 08:00 02/06/17 08:00 02/06/17 08:00 02/06/17 08:00 Intake and Output: 02/06/17 02/06/17 06:59 18:59 Intake Total 200 Balance 200 - Medications Medications: Current Medications Acetaminophen (Tylenol 325mg Tab) 650 mg PO Q4 PRN PRN Reason: Pain, moderate (4-7) Last Admin: 02/04/17 18:34 Dose: 650 mg Amlodipine Besylate (Norvasc) 10 mg PO DAILY [facility] Last Admin: 02/06/17 10:42 Dose: 10 mg Enoxaparin Sodium (Lovenox) 30 mg SC DAILY [facility] Last Admin: 02/06/17 10:42 Dose: Not Given Piperacillin Sod/Tazobactam Sod (Zosyn 2.25 Gm Iv Premix) 50 mls @ 100 mls/hr IVPB Q8H [facility] Last Admin: 02/06/17 10:40 Dose: 100 mls/hr Vancomycin HCl 500 mg/ Sodium (Chloride) 100 mls @ 100 mls/hr IVPB TTS [facility] Last Admin: 02/06/17 10:41 Dose: 100 mls/hr Insulin Aspart (Novolog) 40 unit SC TIDCC [facility] Last Admin: 02/05/17 17:00 Dose: Not Given Insulin Glargine (Lantus) 65 unit SC HS [facility] Losartan Potassium (Cozaar) 100 mg PO DAILY [facility] Last Admin: 02/06/17 10:42 Dose: 100 mg Pantoprazole Sodium (Protonix Ec Tab) 40 mg PO DAILY [facility] Last Admin: 02/06/17 10:42 Dose: 40 mg Rosuvastatin Calcium (Crestor) 10 mg PO HS [facility] Last Admin: 02/05/17 22:02 Dose: 10 mg Sodium Hypochlorite (Dakins Solution 0.125%) 1 appl TOP DAILY [facility] Last Admin: 02/06/17 10:43 Dose: Not Given - Labs Labs: 02/05/17 07:31 02/05/17 07:31 Attending/Attestation - Attestation I have personally seen and examined this patient.: Yes I have fully participated in the care of the patient.: Yes I have reviewed all pertinent clinical information, including history, physical exam and plan: Yes Notes (Text): 02/06/17 12:13 Pt seen at bedside for right 3rd digit ulcer and some right 2nd digit redness. Pt still refuses and sx intervention to right foot and wants to cont with IV abx. Pt refuses to go to [facility]. Strongly urged that she should go to [facility] for area to be closely monitored.
--- NOTE | 2017-02-06 19:50 | CP.PCM.PN ---
Subjective - Date & Time of Evaluation Date of Evaluation: 02/06/17 Time of Evaluation: 19:50 - Subjective Subjective: pt seen and examined, follow up consult is dictated #[id number] will add lasix 40 mg ivp q 12 hrs, first dose now Objective - Vital Signs/Intake and Output Vital Signs (last 24 hours): Temp Pulse Resp BP Pulse Ox 98.0 F 75 20 142/68 96 02/06/17 15:00 02/06/17 16:39 02/06/17 15:00 02/06/17 15:00 02/06/17 15:00 - Medications Medications: Current Medications Acetaminophen (Tylenol 325mg Tab) 650 mg PO Q4 PRN PRN Reason: Pain, moderate (4-7) Last Admin: 02/04/17 18:34 Dose: 650 mg Amlodipine Besylate (Norvasc) 10 mg PO DAILY [facility] Last Admin: 02/06/17 10:42 Dose: 10 mg Enoxaparin Sodium (Lovenox) 30 mg SC DAILY [facility] Last Admin: 02/06/17 10:42 Dose: Not Given Piperacillin Sod/Tazobactam Sod (Zosyn 2.25 Gm Iv Premix) 50 mls @ 100 mls/hr IVPB Q8H [facility] Last Admin: 02/06/17 17:40 Dose: 100 mls/hr Vancomycin HCl 500 mg/ Sodium (Chloride) 100 mls @ 100 mls/hr IVPB TTS [facility] Last Admin: 02/06/17 10:41 Dose: 100 mls/hr Insulin Aspart (Novolog) 40 unit SC TIDCC [facility] Last Admin: 02/06/17 17:40 Dose: 40 unit Insulin Glargine (Lantus) 65 unit SC HS [facility] Losartan Potassium (Cozaar) 100 mg PO DAILY [facility] Last Admin: 02/06/17 10:42 Dose: 100 mg Pantoprazole Sodium (Protonix Ec Tab) 40 mg PO DAILY [facility] Last Admin: 02/06/17 10:42 Dose: 40 mg Rosuvastatin Calcium (Crestor) 10 mg PO HS [facility] Last Admin: 02/05/17 22:02 Dose: 10 mg Sodium Hypochlorite (Dakins Solution 0.125%) 1 appl TOP DAILY [facility] Last Admin: 02/06/17 10:43 Dose: Not Given - Labs Labs: 02/05/17 07:31 02/05/17 07:31
--- NOTE | 2017-02-06 20:48 | PN ---
DATE: 02/06/2017 The patient is located in room 370, bed A. REQUESTED BY: Dr. Donna Melendez. REASON FOR FOLLOWUP: Chronic kidney disease stage IV, nephrotic range proteinuria. HISTORY OF PRESENT ILLNESS: The patient is a 61-year-old elderly female with a past medica l history significant for longstanding hypertension, diabetes, diabetic retinopathy, hyperlipidemia, chronic kidney disease, proteinuria, peripheral vascular disease, status post left lower extremity by pass, who was admitted with right third toe infection and discoloration, the patient is being treated for possible osteomyelitis. Bone scan is positive for possible osteomyelitis of the right third toe . The patient is not in acute distress. Denies any chest pain, palpitation. Denies any fever or co ugh. No abdominal pain, no nausea, vomiting, diarrhea. The patient does complain of bilateral lower extremity swelling. PHYSICAL EXAMINATION: VITAL SIGNS: Blood pressure 142/68, pulse 84, respirations 20, temperature 98, saturation 96%, heigh t 5 feet 4 inches and weight is 189 pounds. BMI 32.4. GENERAL: The patient is a 61-year-old elderly female, well built, well nourished, not in distress. HEENT: Pupils normal, reactive to light and accommodation. Conjunctivae pink. Sclerae anicteric. Tongue is moist. NECK: Trachea is midline. LUNGS: Symmetric on both sides. Bilateral breath sounds present. Clear on auscultation. CARDIOVASCULAR: [place] in the fifth intercostal space midclavicular line. S1 and S2 audible. No murm ur or gallop. ABDOMEN: Normal in appearance, soft, tympanic. No guarding, no rigidity. No hepatosplenomegaly. CENTRAL NERVOUS SYSTEM: Cranial nerves II through XII grossly intact. Sensory and motor system is w ithin normal limits. EXTREMITIES: No cyanosis, no clubbing. The patient has 2+ edema in both lower extremities and also patient has a dressing to the right foot. CURRENT MEDICATIONS: Include as follows: Losartan 100 mg p.o. daily, Crestor 10 mg at bedtime, insu glen glargine 65 units subQ at bedtime, Lovenox 30 mg subQ daily, amlodipine 10 mg daily, insulin aspa rt 40 units subQ t.i.d. and Zosyn 2.25 grams q. 8 hours, Protonix 40 mg p.o. daily, Tylenol 650 p.o. q. 6 hours p.r.n., vancomycin 500 mg 3 times a week, Sunday, , Sunday. LABORATORY DATA: No new labs are available. Accu-Cheks 297, 50, 97 and 221. As of 02/05/2017, H and H is 11/33 and BUN and creatinine 37/3.2, and 24-hour urine volume is 1000, creatinine clearance 14, and 24-hour urine protein calculated at 5780 mg. SUMMARY: The patient is a 61-year-old elderly female with a history of longstanding hypert ension, diabetes, hyperlipidemia, chronic kidney disease, peripheral vascular disease, status post l eft lower extremity bypass, admitted with a right third toe infection. 1. Acute on chronic kidney disease, stage IV. 2. Proteinuria, most likely secondary to diabetic nephropathy. 3. Hypertension. 4. Osteomyelitis of the right third toe. Continue antibiotics, Zosyn and vancomycin. Will add Lasi x 40 mg q. 12 hours, first dose now. Repeat BMP in the a.m. We will follow with you. Thank you for allowing me to participate in your patient's care. Shaniqua Wang MD cc: [id number] TT: 02/06/2017 20:48:06 Confirmation # [id number] Dictation # [id number]
[2017-02-07] MEDS: Piperacill/Tazo 2.25gm in Dex 50 ML IVPB SCH ×3 (01:39→17:32)
[2017-02-07 07:33] LABS: POTASSIUM 3.9 mmol/L (3.6-5.2)
[2017-02-07 07:36] LABS: CALCIUM 8.6 mg/dl (8.6-10.4)
[2017-02-07] MEDS: (Novolog) Insulin Aspart, Recombinant 100 u/ml 10 ml vial SC SCH ×3 (08:27→17:31)
[2017-02-07 08:50] VITALS: PULSE 75; O2SAT 96
[2017-02-07] MEDS: Enoxaparin 30 mg Syringe SC SCH (10:09)
[2017-02-07] MEDS: Pantoprazole 40 mg EC Tab PO SCH (10:09)
--- NOTE | 2017-02-07 11:13 | CP.PCM.PN ---
Subjective - Date & Time of Evaluation Date of Evaluation: 02/07/17 Time of Evaluation: 11:20 - Subjective Subjective: Patient seen- had PICC line done, patient is ready to go home, discussed follow up, clinic podiatry DM patient is aware no current complaints Objective - Vital Signs/Intake and Output Vital Signs (last 24 hours): Temp Pulse Resp BP Pulse Ox 98.1 F 75 20 131/72 96 02/07/17 08:00 02/07/17 08:00 02/07/17 08:00 02/07/17 10:10 02/07/17 08:00 Intake and Output: 02/07/17 02/07/17 06:59 18:59 Intake Total 250 Balance 250 - Medications Medications: Current Medications Acetaminophen (Tylenol 325mg Tab) 650 mg PO Q4 PRN PRN Reason: Pain, moderate (4-7) Last Admin: 02/07/17 10:26 Dose: 650 mg Amlodipine Besylate (Norvasc) 10 mg PO DAILY [facility] Last Admin: 02/07/17 10:09 Dose: 10 mg Enoxaparin Sodium (Lovenox) 30 mg SC DAILY [facility] Last Admin: 02/07/17 10:09 Dose: Not Given Furosemide (Lasix) 40 mg IVP Q12 [facility] Last Admin: 02/07/17 10:11 Dose: Not Given Piperacillin Sod/Tazobactam Sod (Zosyn 2.25 Gm Iv Premix) 50 mls @ 100 mls/hr IVPB Q8H [facility] Last Admin: 02/07/17 10:11 Dose: 100 mls/hr Vancomycin HCl 500 mg/ Sodium (Chloride) 100 mls @ 100 mls/hr IVPB TTS [facility] Last Admin: 02/06/17 10:41 Dose: 100 mls/hr Insulin Aspart (Novolog) 40 unit SC TIDCC [facility] Last Admin: 02/07/17 08:27 Dose: Not Given Insulin Glargine (Lantus) 65 unit SC HS [facility] Last Admin: 02/06/17 21:28 Dose: 65 u Losartan Potassium (Cozaar) 100 mg PO DAILY [facility] Last Admin: 02/07/17 10:09 Dose: 100 mg Pantoprazole Sodium (Protonix Ec Tab) 40 mg PO DAILY [facility] Last Admin: 02/07/17 10:09 Dose: 40 mg Rosuvastatin Calcium (Crestor) 10 mg PO HS [facility] Last Admin: 02/06/17 21:26 Dose: 10 mg Sodium Hypochlorite (Dakins Solution 0.125%) 1 appl TOP DAILY [facility] Last Admin: 02/06/17 10:43 Dose: Not Given - Labs Labs: 02/05/17 07:31 02/07/17 06:48 - Constitutional Appears: Non-toxic, No Acute Distress - Head Exam Head Exam: ATRAUMATIC, NORMOCEPHALIC - Eye Exam Eye Exam: Normal appearance - ENT Exam ENT Exam: Mucous Membranes Moist - Neck Exam Neck Exam: Full ROM. absent: Tenderness - Respiratory Exam Respiratory Exam: Clear to Ausculation Bilateral, NORMAL BREATHING PATTERN - Cardiovascular Exam Cardiovascular Exam: REGULAR RHYTHM - Extremities Exam Extremities Exam: Full ROM, Joint Swelling (right foot swelling dry 3rd toe ulcer dry ) - Back Exam Back Exam: Full ROM. absent: tenderness - Neurological Exam Neurological Exam: Alert, Awake, Normal Gait, Oriented x3 - Psychiatric Exam Psychiatric exam: Normal Affect, Normal Mood - Skin Skin Exam: Normal Color Assessment and Plan - Assessment and Plan (Free Text) Assessment: Patient with uncontrolled DM CRI Diabetic ulcer-right foot- refuses surgical procedure refuses subacute- will go home for continous IV antibiotic and close follow ups as out patient = patient is amenable to follow ups arrangements done discussion with staff / pillowcase cutter
--- NOTE | 2017-02-07 13:10 | RAD ---
HISTORY: PICC placement COMPARISON: No prior. FINDINGS: LUNGS: No active pulmonary disease. PLEURA: No significant pleural effusion identified, no pneumothorax apparent. CARDIOVASCULAR: Normal. OSSEOUS STRUCTURES: No significant abnormalities. VISUALIZED UPPER ABDOMEN: Normal. OTHER FINDINGS: There is a left-sided PICC line is seen at appropriate position with the tip is at the distal SVC IMPRESSION: Appropriate position of the left-sided PICC line with the tip at the distal SVC. No evidence of acute pulmonary disease.
--- NOTE | 2017-02-07 15:36 | CP.PCM.DIS ---
Provider - Provider Date of Admission: 01/30/17 18:19 Attending physician: Donna Melendez MD Time Spent in preparation of Discharge (in minutes): 30 Hospital Course - Lab Results Lab Results: Most Recent Lab Values WBC 8.1 K/uL (4.8-10.8) 02/05/17 07:31 RBC 3.86 Mil/uL (3.80-5.20) 02/05/17 07:31 Hgb 11.0 g/dL (11.0-16.0) 02/05/17 07:31 Hct 33.0 % (34.0-47.0) L 02/05/17 07:31 MCV 85.4 fL (81.0-99.0) 02/05/17 07:31 MCH 28.4 pg (27.0-31.0) 02/05/17 07:31 MCHC 33.3 g/dL (33.0-37.0) 02/05/17 07:31 RDW 13.1 % (11.5-14.5) 02/05/17 07:31 Plt Count 292 K/uL (130-400) 02/05/17 07:31 MPV 7.4 fL (7.2-11.7) 02/05/17 07:31 Neut % (Auto) 67.3 % (50.0-75.0) 02/05/17 07:31 Lymph % (Auto) 21.1 % (20.0-40.0) 02/05/17 07:31 [place] % (Auto) 5.5 % (0.0-10.0) 02/05/17 07:31 Eos % (Auto) 5.2 % (0.0-4.0) H 02/05/17 07:31 Baso % (Auto) 0.9 % (0.0-2.0) 02/05/17 07:31 Neut # 5.4 K/uL (1.8-7.0) 02/05/17 07:31 Lymph # 1.7 K/uL (1.0-4.3) 02/05/17 07:31 [place] # 0.4 K/uL (0.0-0.8) 02/05/17 07:31 Eos # 0.4 K/uL (0.0-0.7) 02/05/17 07:31 Baso # 0.1 K/uL (0.0-0.2) 02/05/17 07:31 Sodium 142 mmol/L (132-148) 02/07/17 06:48 Potassium 3.9 mmol/L (3.6-5.2) 02/07/17 06:48 Chloride 103 mmol/L (98-107) 02/07/17 06:48 Carbon Dioxide 24 mmol/L (22-30) 02/07/17 06:48 Anion Gap 19 (10-20) 02/07/17 06:48 BUN 41 mg/dL (7-17) H 02/07/17 06:48 Creatinine 3.6 MG/DL (0.7-1.2) H 02/07/17 06:48 Est GFR ( Amer) 16 02/07/17 06:48 Est GFR (Non-Af Amer) 13 02/07/17 06:48 POC Glucose (mg/dL) 101 mg/dL (65-110) 02/07/17 07:12 Random Glucose 88 mg/dL (65-105) 02/07/17 06:48 Hemoglobin A1c 8.5 % (4.2-6.5) H 01/31/17 10:00 Calcium 8.6 mg/dl (8.6-10.4) 02/07/17 06:48 Total Bilirubin 0.3 mg/dL (0.2-1.3) 01/30/17 18:07 AST 22 U/L (14-36) 01/30/17 18:07 ALT 22 U/L (9-52) 01/30/17 18:07 Alkaline Phosphatase 194 U/L (38-126) H 01/30/17 18:07 Total Protein 6.6 g/dL (6.3-8.3) 01/30/17 18:07 Albumin 3.4 g/dL (3.5-5.0) L 01/30/17 18:07 Globulin 3.1 gm/dL (2.2-3.9) 01/30/17 18:07 Albumin/Globulin Ratio 1.1 (1.0-2.1) 01/30/17 18:07 PTH Intact Whole Molec 122 pg/mL (14-64) H 02/04/17 07:05 Urine Color Yellow (YELLOW) 02/03/17 07:00 Urine Clarity Clear (Clear) 02/03/17 07:00 Urine pH 7.0 (5.0-8.0) 02/03/17 07:00 Ur Specific [place] 1.015 (1.003-1.030) 02/03/17 07:00 Urine Protein 2+ mg/dL (NEGATIVE) H 02/03/17 07:00 Urine Glucose (UA) 2+ mg/dL (Normal) H 02/03/17 07:00 Urine Ketones Negative mg/dL (NEGATIVE) 02/03/17 07:00 Urine Blood Negative (NEGATIVE) 02/03/17 07:00 Urine Nitrate Negative (NEGATIVE) 02/03/17 07:00 Urine Bilirubin Negative (NEGATIVE) 02/03/17 07:00 Urine Urobilinogen Normal mg/dL (0.2-1.0) 02/03/17 07:00 Ur Leukocyte Esterase Neg Jazlyn/uL (Negative) 02/03/17 07:00 Urine WBC (Auto) 4 /hpf (0-5) 02/03/17 07:00 Urine RBC (Auto) 2 /hpf (0-3) 02/03/17 07:00 Urine WBC Clumps (Auto) Few /hpf (NONE) H 01/31/17 07:29 Ur Squamous Epith Cells 2 /hpf (0-5) 02/03/17 07:00 Urine Bacteria Mod (<OCC) H 01/31/17 07:29 Urine Eosinophils Positive (NEGATIVE) H 02/07/17 14:34 Urine Collection Time 24 HRS 02/05/17 06:59 Urine Total Volume 1000 mL 02/05/17 06:59 Creatinine Clearance 14.0 mL/min (87-107) L 02/05/17 06:59 Ur Protein 24 Hr Calc 5780.0 mg/24hr (42-225) H 02/05/17 06:59 Random Vancomycin 5.71 ug/mL 02/07/17 13:49 NASIMA 6 Profile Positive (NEGATIVE) H 01/31/17 07:17 NASIMA Titer 1:80 H 01/31/17 07:17 NASIMA Pattern Speckled H 01/31/17 07:17 Sm (Ghotra) Antibody <1.0 AI (<1.0) 02/03/17 07:30 Anti-Ghotra Interpret Negative (Negative) 02/03/17 07:30 Double Strand DNA Ab <1 IU/mL (()) 02/03/17 07:30 Complement C3 147.0 mg/dL (88.0-165.0) 01/31/17 07:17 Complement C4 59.2 mg/dL (14.0-44.0) H 01/31/17 07:17 Hep Bs Antigen Negative (NEGATIVE) 01/31/17 07:17 Hep Bs Antibody Negative (NEGATIVE) 01/31/17 07:17 Hep B Core IgM Ab Negative (NEGATIVE) 01/31/17 07:17 Hepatitis C Antibody Negative (NEGATIVE) 01/31/17 07:17 - Hospital Course Hospital Course: patient admitted fo rdiabetic ulcer 3rd toe right foot- doppler normal, bone scan possible OM, refuses amputatuion refuses subacute- improved stable with antibiotic patient wants to try iv antibiotic Discharge Exam - Head Exam Head Exam: ATRAUMATIC, NORMOCEPHALIC - Eye Exam Eye Exam: Normal appearance - ENT Exam ENT Exam: Mucous Membranes Moist - Neck Exam Neck exam: Full Rom - Respiratory Exam Respiratory Exam: Clear to PA & Lateral, NORMAL BREATHING PATTERN - GI/Abdominal Exam GI & Abdominal Exam: Normal Bowel Sounds - Back Exam Back exam: FULL ROM - Neurological Exam Neurological exam: Alert, Normal Gait, Oriented x3, Reflexes Normal - Psychiatric Exam Psychiatric exam: Normal Affect, Normal Mood - Skin Skin Exam: Normal Color Discharge Plan - Follow Up Plan Condition: SERIOUS Disposition: HOME/ ROUTINE
--- NOTE | 2017-02-07 16:20 | CP.PCM.PN ---
Subjective - Date & Time of Evaluation Date of Evaluation: 02/07/17 Time of Evaluation: 12:10 - Subjective Subjective: Podiatry : Patient seen at bedside. She has decided to leave the hospital and wants to be treated as an outpatient. Patient said that she will see my partner this Sunday in the office next door. Objective - Vital Signs/Intake and Output Vital Signs (last 24 hours): Temp Pulse Resp BP Pulse Ox 98.1 F 75 20 131/72 96 02/07/17 08:00 02/07/17 08:00 02/07/17 08:00 02/07/17 10:10 02/07/17 08:00 Intake and Output: 02/07/17 02/07/17 06:59 18:59 Intake Total 250 Balance 250 - Medications Medications: Current Medications Acetaminophen (Tylenol 325mg Tab) 650 mg PO Q4 PRN PRN Reason: Pain, moderate (4-7) Last Admin: 02/07/17 10:26 Dose: 650 mg Amlodipine Besylate (Norvasc) 10 mg PO DAILY [facility] Last Admin: 02/07/17 10:09 Dose: 10 mg Enoxaparin Sodium (Lovenox) 30 mg SC DAILY [facility] Last Admin: 02/07/17 10:09 Dose: Not Given Furosemide (Lasix) 40 mg IVP Q12 [facility] Last Admin: 02/07/17 10:11 Dose: Not Given Piperacillin Sod/Tazobactam Sod (Zosyn 2.25 Gm Iv Premix) 50 mls @ 100 mls/hr IVPB Q8H [facility] Last Admin: 02/07/17 10:11 Dose: 100 mls/hr Vancomycin HCl 500 mg/ Sodium (Chloride) 100 mls @ 100 mls/hr IVPB TTS [facility] Last Admin: 02/06/17 10:41 Dose: 100 mls/hr Insulin Aspart (Novolog) 40 unit SC TIDCC [facility] Last Admin: 02/07/17 12:30 Dose: Not Given Insulin Glargine (Lantus) 65 unit SC HS [facility] Last Admin: 02/06/17 21:28 Dose: 65 u Losartan Potassium (Cozaar) 100 mg PO DAILY [facility] Last Admin: 02/07/17 10:09 Dose: 100 mg Pantoprazole Sodium (Protonix Ec Tab) 40 mg PO DAILY [facility] Last Admin: 02/07/17 10:09 Dose: 40 mg Rosuvastatin Calcium (Crestor) 10 mg PO HS [facility] Last Admin: 02/06/17 21:26 Dose: 10 mg Sodium Hypochlorite (Dakins Solution 0.125%) 1 appl TOP DAILY [facility] Last Admin: 02/07/17 14:07 Dose: Not Given - Labs Labs: 02/05/17 07:31 02/07/17 06:48
--- NOTE | 2017-02-07 17:28 | CP.PCM.PN ---
Subjective - Date & Time of Evaluation Date of Evaluation: 02/07/17 Time of Evaluation: 17:48 - Subjective Subjective: Alert, oriented, no sob or chest pains. Right foot dressing in place, NAD. Objective - Vital Signs/Intake and Output Vital Signs (last 24 hours): Temp Pulse Resp BP Pulse Ox 98.1 F 75 20 131/72 96 02/07/17 08:00 02/07/17 17:13 02/07/17 08:00 02/07/17 10:10 02/07/17 08:00 Intake and Output: 02/07/17 02/07/17 06:59 18:59 Intake Total 250 480 Balance 250 480 - Medications Medications: Current Medications Acetaminophen (Tylenol 325mg Tab) 650 mg PO Q4 PRN PRN Reason: Pain, moderate (4-7) Last Admin: 02/07/17 10:26 Dose: 650 mg Amlodipine Besylate (Norvasc) 10 mg PO DAILY [facility] Last Admin: 02/07/17 10:09 Dose: 10 mg Enoxaparin Sodium (Lovenox) 30 mg SC DAILY [facility] Last Admin: 02/07/17 10:09 Dose: Not Given Furosemide (Lasix) 40 mg IVP Q12 [facility] Last Admin: 02/07/17 10:11 Dose: Not Given Piperacillin Sod/Tazobactam Sod (Zosyn 2.25 Gm Iv Premix) 50 mls @ 100 mls/hr IVPB Q8H [facility] Last Admin: 02/07/17 10:11 Dose: 100 mls/hr Vancomycin HCl 500 mg/ Sodium (Chloride) 100 mls @ 100 mls/hr IVPB TTS [facility] Last Admin: 02/06/17 10:41 Dose: 100 mls/hr Insulin Aspart (Novolog) 40 unit SC TIDCC [facility] Last Admin: 02/07/17 12:30 Dose: Not Given Insulin Glargine (Lantus) 65 unit SC HS [facility] Last Admin: 02/06/17 21:28 Dose: 65 u Losartan Potassium (Cozaar) 100 mg PO DAILY [facility] Last Admin: 02/07/17 10:09 Dose: 100 mg Pantoprazole Sodium (Protonix Ec Tab) 40 mg PO DAILY [facility] Last Admin: 02/07/17 10:09 Dose: 40 mg Rosuvastatin Calcium (Crestor) 10 mg PO HS [facility] Last Admin: 02/06/17 21:26 Dose: 10 mg Sodium Hypochlorite (Dakins Solution 0.125%) 1 appl TOP DAILY [facility] Last Admin: 02/07/17 14:07 Dose: Not Given - Labs Labs: 02/05/17 07:31 02/07/17 06:48 Assessment and Plan - Assessment and Plan (Free Text) Assessment: Patient is seen and examined. Alert, awake, orientedx3, has moderate edema on both legs. Denies sob or chest pains. Patient refusing rehab placement for iv antibiotic therapy for infected foot. Ptient Insisted to be going home today. Antibiotic therapy arranged for home infusion as ordered by DR Dawson. PICC line in place. D/w DR Silva discharge plan for today. Patient and spouse agreed to go to the office tomorrow for blood works to follow up on creatinine and potassium levels. rx given for all meds including lasix 40 po daily.
[2017-02-07 17:48] VITALS: BP 106/65; TEMP 97.9
--- NOTE | 2017-02-07 17:55 | CP.PCM.PN ---
Subjective - Date & Time of Evaluation Date of Evaluation: 02/07/17 Time of Evaluation: 17:30 - Subjective Subjective: pt seen and examined, follow up consult is dictated #[id number] Objective - Vital Signs/Intake and Output Vital Signs (last 24 hours): Temp Pulse Resp BP Pulse Ox 97.9 F 75 20 106/65 96 02/07/17 16:00 02/07/17 17:13 02/07/17 16:00 02/07/17 16:00 02/07/17 16:00 Intake and Output: 02/07/17 02/07/17 06:59 18:59 Intake Total 250 480 Balance 250 480 - Medications Medications: Current Medications Acetaminophen (Tylenol 325mg Tab) 650 mg PO Q4 PRN PRN Reason: Pain, moderate (4-7) Last Admin: 02/07/17 10:26 Dose: 650 mg Amlodipine Besylate (Norvasc) 10 mg PO DAILY [facility] Last Admin: 02/07/17 10:09 Dose: 10 mg Enoxaparin Sodium (Lovenox) 30 mg SC DAILY [facility] Last Admin: 02/07/17 10:09 Dose: Not Given Furosemide (Lasix) 40 mg IVP Q12 [facility] Last Admin: 02/07/17 10:11 Dose: Not Given Piperacillin Sod/Tazobactam Sod (Zosyn 2.25 Gm Iv Premix) 50 mls @ 100 mls/hr IVPB Q8H [facility] Last Admin: 02/07/17 17:32 Dose: 100 mls/hr Vancomycin HCl 500 mg/ Sodium (Chloride) 100 mls @ 100 mls/hr IVPB TTS [facility] Last Admin: 02/06/17 10:41 Dose: 100 mls/hr Insulin Aspart (Novolog) 40 unit SC TIDCC [facility] Last Admin: 02/07/17 17:31 Dose: 40 unit Insulin Glargine (Lantus) 65 unit SC HS [facility] Last Admin: 02/06/17 21:28 Dose: 65 u Losartan Potassium (Cozaar) 100 mg PO DAILY [facility] Last Admin: 02/07/17 10:09 Dose: 100 mg Pantoprazole Sodium (Protonix Ec Tab) 40 mg PO DAILY [facility] Last Admin: 02/07/17 10:09 Dose: 40 mg Rosuvastatin Calcium (Crestor) 10 mg PO HS [facility] Last Admin: 02/06/17 21:26 Dose: 10 mg Sodium Hypochlorite (Dakins Solution 0.125%) 1 appl TOP DAILY [facility] Last Admin: 02/07/17 14:07 Dose: Not Given - Labs Labs: 02/05/17 07:31 02/07/17 06:48
--- NOTE | 2017-02-08 00:04 | PN ---
DATE: 02/07/2017 The patient is located in room 370, bed A. REQUESTED BY: Dr. Donna Melendez. REASON FOR FOLLOWUP: Chronic kidney disease and worsening renal function. HISTORY OF PRESENT ILLNESS: The patient is a 61-year-old elderly obese female with a histo ry of longstanding hypertension, diabetes, hyperlipidemia, proteinuria, chronic kidney disease, perip heral vascular disease, status post left lower extremity bypass, who was admitted with a right 3rd to e infection and found to have osteomyelitis of the tuft of the right toe and started on IV antibiotic s, Zosyn and vancomycin. The patient was found to have proteinuria more than 5 grams. She was compl aining of bilateral leg swelling and started on Lasix last night. The patient is feeling better, not in acute distress, still claims bilateral leg swelling. No chest pain, no palpitations, no fever, n o cough, no nausea, no vomiting or diarrhea. PHYSICAL EXAMINATION: VITAL SIGNS: As follows: Blood pressure 106/65, pulse 81, respirations 20, temperature 97.9, satura tion 96%, height 5 feet 4 inches and weight is 189 pounds. GENERAL: The patient is a 61-year-old elderly obese female, well built, well nourished, no t in distress. HEENT: Pupils normal, reactive to light and accommodation. Conjunctivae pink. Sclerae anicteric. Tongue is moist. NECK: Trachea midline. LUNGS: Symmetric on both sides. Bilateral breath sounds present. Clear on auscultation. CARDIOVASCULAR: [place] in the fifth intercostal space midclavicular line. S1 and S2 audible. No murm ur or gallop. ABDOMEN: Normal in appearance, soft, tympanic. No guarding, no rigidity. No hepatosplenomegaly. CENTRAL NERVOUS SYSTEM: The patient is alert, awake, oriented x 3, nonfocal on examination. EXTREMITIES: No cyanosis, no clubbing. The patient has 1-2+ edema in both lower extremities and the patient has a dressing to the right foot. CURRENT MEDICATIONS: Include as follows: Cozaar 100 mg p.o. daily, Crestor 10 mg at bedtime, Lantus 65 units subQ at bedtime, Lasix 40 mg IV q. 12, Lovenox 30 mg subQ daily, Norvasc 10 mg daily, Romina nix 40 mg p.o. daily, vancomycin 500 mg 3 times a week, and Zosyn 2.25 grams q. 8 hours. LABORATORY DATA: Include as follows: Sodium 142, potassium 3.9, chloride 103, CO2 of 24, BUN 41, cr eatinine 3.6, and glucose is 88, calcium is 8.6, and urine eosinophils are positive. Vancomycin rand om level is 5.71 and Accu-Cheks 172 and 310. SUMMARY: The patient is a 61-year-old elderly obese female with hypertension, diabetes, hyperlipidem ia, proteinuria more than 5 grams with increased BUN and creatinine, being treated for osteomyelitis of the 3rd toe on the right side. 1. Renal failure, acute on chronic kidney disease stage IV, chronic kidney disease is most likely se condary to diabetic nephropathy. 2. Hypertension. 3. Osteomyelitis of the right 3rd toe. Continue antibiotics as per ID recommendation and cannot rul e out acute interstitial nephritis secondary to antibiotics, adjust antibiotics as per ID recommendat ions for possible discharge this evening. We will follow with you. Thank you for allowing me to participate in your patient's care. Shaniqua Wang MD cc: [id number] TT: 02/08/2017 00:03:55 Confirmation # [id number] Dictation # [id number] jeffry
== END 2017-02-07 17:45 | disposition home or self-care (01) | DRG 638 ==
LOC: C.ER 15:16 → C.9E 18:19 → C.3T 18:53
PROVIDERS: ADMIT Internal Medicine; ATTEND Internal Medicine
PROC: 02HV33Z Insertion of Infusion Device into Superior Vena Cava, Percutaneous Approach (ICD-10-PCS; principal; 2017-02-07)
DX: E11.621 Type 2 diabetes mellitus with foot ulcer (principal); L03.115 Cellulitis of right lower limb; M86.8X7 Other osteomyelitis, ankle and foot; E11.21 Type 2 diabetes mellitus with diabetic nephropathy; N18.4 Chronic kidney disease, stage 4 (severe); N17.9 Acute kidney failure, unspecified; E11.51 Type 2 diabetes mellitus with diabetic peripheral angiopathy without gangrene; N39.0 Urinary tract infection, site not specified; E11.628 Type 2 diabetes mellitus with other skin complications; E11.69 Type 2 diabetes mellitus with other specified complication; L97.519 Non-pressure chronic ulcer of other part of right foot with unspecified severity; E11.65 Type 2 diabetes mellitus with hyperglycemia; E66.9 Obesity, unspecified; I12.9 Hypertensive chronic kidney disease with stage 1 through stage 4 chronic kidney disease, or unspecified chronic kidney disease; E78.5 Hyperlipidemia, unspecified; Z53.29 Procedure and treatment not carried out because of patient's decision for other reasons; Z68.34 Body mass index [BMI] 34.0-34.9, adult; Z91.11 Patient's noncompliance with dietary regimen; Z79.4 Long term (current) use of insulin

== ENCOUNTER 2017-08-01 22:10 | Observation (INO) | payer OTHER ==
--- NOTE | 2017-08-01 22:47 | C.PDOC ---
History Of Present Illness 62 year old female was brought to the ED with complaints of unregulated blood sugar beginning earlier today with feelings of lethargy. Patient states she took her insulin this morning when her glucose was 500. Prior to arrival blood sugar was 97 and upon arrival blood sugar was 182. Patient states blood sugar is normally controlled around 120. She denies pain or discomfort, SOB, or difficulty with urination. Time Seen by Provider: 08/01/17 22:43 Chief Complaint (Nursing): High Blood Sugar History Per: Patient, Family ( ) History/Exam Limitations: no limitations Onset/Duration Of Symptoms: Hrs Current Symptoms Are (Timing): Still Present Current Diabetic Medications: Insulin Associated Infectious Symptoms: denies: Urinary Urgency, Urinary Frequency, Nausea, Vomiting Treatment Prior To Provider Evaluation: Accucheck Recent travel outside of the [place]: No Past Medical History Reviewed: Historical Data, Nursing Documentation, Vital Signs Vital Signs: Last Vital Signs Temp 98.6 F 08/01/17 22:19 Pulse 109 H 08/01/17 22:19 Resp 20 08/01/17 22:19 BP 137/70 08/01/17 22:19 Pulse Ox 99 08/02/17 00:16 - Medical History PMH: HTN, Hyperlipidemia - [facility] Procedures INSERTION OF INFUSION DEV INTO SUP VENA CAVA, PERC APPROACH (01/30/17) Family History: States: Unknown Family Hx - Social History Hx Alcohol Use: No Hx Substance Use: No - Immunization History Hx Tetanus Toxoid Vaccination: No Hx Influenza Vaccination: Yes Hx Pneumococcal Vaccination: No Review Of Systems Constitutional: Positive for: Other (lethargic and uncontrolled blood sugar ). Negative for: Fever, Chills Cardiovascular: Negative for: Chest Pain, Palpitations Respiratory: Negative for: Cough, Shortness of Breath Gastrointestinal: Negative for: Nausea, Vomiting, Abdominal Pain, Diarrhea Neurological: Negative for: Headache, Dizziness Physical Exam - Physical Exam Appears: Non-toxic, No Acute Distress Skin: Warm, Dry Head: Atraumatic, Normacephalic Eye(s): bilateral: Normal Inspection, PERRL, EOMI Oral Mucosa: Moist Neck: Supple Chest: Symmetrical, No Deformity Cardiovascular: Rhythm Regular, No Murmur Respiratory: Normal Breath Sounds, No Rales, No Rhonchi, No Wheezing Gastrointestinal/Abdominal: Soft, No Tenderness, No Distention, No Guarding, No Rebound Extremity: Normal ROM, No Tenderness Neurological/Psych: Oriented x3, Normal Speech, Normal Cognition, Normal Cranial Nerves, No Cerebellar Signs, Normal Motor, Normal Sensation ED Course And Treatment - Laboratory Results Result Diagrams: 08/02/17 00:11 08/02/17 00:11 Lab Interpretation: Abnormal (WBC 14.6, mild anemia, glucose 53. Rechecked with POC 45.) O2 Sat by Pulse Oximetry: 99 (RA) Pulse Ox Interpretation: Normal Progress Note: UA and blood work was ordered. Reevaluation Time: 01:03 Reassessment Condition: Unchanged - Physician Consult Information Time Consulting Physician Contacted: 01:03 Physician Contacted: Donna Melendez Outcome Of Conversation: Patient to be admitted for control of blood sugar Disposition - Disposition Disposition: HOSPITALIZED Disposition Time: 01:05 Condition: FAIR - POA Present On Arrival: Poor Glycemic Control - Clinical Impression Clinical Impression: Chronic renal insufficiency, stage III (moderate), Uncontrolled diabetes mellitus - Scribe Statement The provider has reviewed the documentation as recorded by the Sadiibjose Montejo All medical record entries made by the Rhonda were at my direction and personally dictated by me. I have reviewed the chart and agree that the record accurately reflects my personal performance of the history, physical exam, medical decision making, and the department course for this patient. I have also personally directed, reviewed, and agree with the discharge instructions and disposition.
[2017-08-02 00:15] LABS: BASO # 0.1 K/uL (0.0-0.2); BASO % 0.5 % (0.0-2.0); EOS # 0.1 K/uL (0.0-0.7); EOS % 0.4 % (0.0-4.0); HEMATOCRIT 31.5 % (34.0-47.0); LYMPH # 1.4 K/uL (1.0-4.3); LYMPH % 9.4 % (20.0-40.0); MEAN CELL VOLUME 86.2 fL (81.0-99.0); MEAN CORPUSCULAR HEMOGLOBIN 29.4 pg (27.0-31.0); MEAN CORPUSCULAR HGB CONC 34.1 g/dL (33.0-37.0); MEAN PLATELET VOLUME 7.9 fL (7.2-11.7); MONO # 0.7 K/uL (0.0-0.8); MONO % 5.1 % (0.0-10.0); PLATELET COUNT 272 K/uL (130-400); RED CELL DISTRIBUTION WIDTH 13.6 % (11.5-14.5); WHITE BLOOD COUNT 14.6 K/uL (4.8-10.8)
[2017-08-02 00:32] LABS: BILIRUBIN,TOTAL 0.4 mg/dL (0.2-1.3); CALCIUM 7.8 mg/dl (8.6-10.4); POTASSIUM 3.7 mmol/L (3.6-5.2); TOTAL PROTEIN 5.6 g/dL (6.3-8.3)
[2017-08-02 00:43] LABS: ALB/GLOB RATIO 1.2 (1.0-2.1)
[2017-08-02] MEDS ORDERED: Piperacill/Tazo 2.25gm in Dex 2.25 GM/50 ML BAG IVPB STA (01:16)
[2017-08-02] MEDS ORDERED: Dextrose 50% SYRINGE Inj (50 ml) IV STA (01:32)
[2017-08-02] MEDS ORDERED: Dextrose 50% SYRINGE Inj (50 ml) ONE (01:36)
[2017-08-02 03:12] VITALS: RESP 20
[2017-08-02 03:17] LABS: NEUTROPHIL 87 % (50-75); TOTAL CELLS COUNTED 100
[2017-08-02] MEDS ORDERED: Sodium Chloride 0.9% 1,000 ML IV SCH (09:00)
[2017-08-02] MEDS ORDERED: (Novolog) Insulin Aspart, Recombinant 100 u/ml 10 ml vial SC SCH ×3 (10:00→11:30)
--- NOTE | 2017-08-02 12:20 | CP.PCM.HP ---
History of Present Illness - History of Present Illness History of Present Illness: Patient with history of DM2 ,IDDM- chronically uncontrolled CRI, Gangrene and cellulitis right foot, s/p treatment - improved PAD LE with bypass came to ER due to episode of low sugar- In ER_ sugar was noted to be persistently low,, with no change in patient's sensorium, no fever no pain no abdomnila pain as Per patient she injected her maintenance insulin and also injected 60 units of Novolog since er sgar was very high ,when asked who gave her that dose, she said she made that dose herself , Discussion of side effect of Insulin especially the novolog , patient understood she denies depression discussed with - repprts- that because she forgot the previous insulin- day before- her sugar went up- and inject that much of insulin yesterday but reports her sugar has been good on the 120's husbvand reports no other complaints wishes to go home Present on Admission - Present on Admission Any Indicators Present on Admission: Yes History of DVT/PE: No History of Uncontrolled Diabetes: Yes Urinary Catheter: No Decubitus Ulcer Present: No Review of Systems - Constitutional Constitutional: absent: Fever, Headache - EENT Eyes: absent: Other Visual Disturbances Ears: absent: Abnormal Hearing Nose/Mouth/Throat: absent: Nasal Congestion, Mouth Lesions, Sore Throat - Breasts Breasts: absent: Pain - Cardiovascular Cardiovascular: absent: Chest Pain, Orthopnea, Syncope - Respiratory Respiratory: absent: Cough, Dyspnea, Wheezing - Gastrointestinal Gastrointestinal: absent: Abdominal Pain, Constipation, Vomiting - Genitourinary Genitourinary: absent: Dysuria - Musculoskeletal Musculoskeletal: absent: Abnormal Gait, Deformity - Integumentary Integumentary: absent: New Lesions (redness- toes right foot ) - Psychiatric Psychiatric: absent: Behavioral Changes, Confusion, Depression - Endocrine Endocrine: absent: Polydipsia, Polyphagia, Polyuria - Hematologic/Lymphatic Hematologic: absent: Easy Bleeding, Easy Bruising Past Patient History - Infectious Disease Hx of Infectious Diseases: None - Past Medical History & Family History Past Medical History?: Yes - Past Social History Smoking Status: Former Smoker - CARDIAC Hx Hypertension: Yes Other/Comment: hyperlipidemia - PULMONARY Hx Respiratory Disorders: No - NEUROLOGICAL Hx Neurological Disorder: No - HEENT Hx HEENT Problems: No - RENAL Hx Chronic Kidney Disease: Yes - ENDOCRINE/METABOLIC Hx Endocrine Disorders: Yes Hx Diabetes Mellitus Type 2: Yes - HEMATOLOGICAL/ONCOLOGICAL Hx Blood Disorders: No - INTEGUMENTARY Hx Dermatological Problems: No - MUSCULOSKELETAL/RHEUMATOLOGICAL Hx Musculoskeletal Disorders: Yes (cellulitis right foot ) Hx Falls: No - GASTROINTESTINAL Hx Gastrointestinal Disorders: No - GENITOURINARY/GYNECOLOGICAL Hx Genitourinary Disorders: No - PSYCHIATRIC Hx Substance Use: No - SURGICAL HISTORY Hx Surgeries: Yes (FEM POP bypass left LE) Hx Femoral-Popliteal Bypass Graft: Yes - ANESTHESIA Hx Anesthesia: Yes Hx Anesthesia Reactions: No Hx Malignant Hyperthermia: No Has any member of the family had a problem w/ anesthesia?: No Meds Allergies/Adverse Reactions: Allergies Allergy/AdvReac Type Severity Reaction Status Date / Time No Known Allergies Allergy Verified 08/01/17 22:22 Physical Exam - Constitutional Appears: Well, Non-toxic (answers question correctly and appropriately ) - Head Exam Head Exam: ATRAUMATIC, NORMOCEPHALIC - Eye Exam Eye Exam: Normal appearance. absent: Nystagmus - ENT Exam ENT Exam: Mucous Membranes Moist - Neck Exam Neck exam: Positive for: Full Rom - Respiratory Exam Respiratory Exam: Clear to Auscultation Bilateral, NORMAL BREATHING PATTERN - Cardiovascular Exam Cardiovascular Exam: REGULAR RHYTHM - GI/Abdominal Exam GI & Abdominal Exam: Normal Bowel Sounds, Soft. absent: Tenderness - Extremities Exam Extremities exam: Positive for: full ROM ( ight toes mild redness (post treatment for cellulitis )) - Back Exam Back exam: absent: tenderness - Neurological Exam Neurological exam: Alert, Normal Gait, Oriented x3 - Psychiatric Exam Psychiatric exam: Normal Affect, Normal Mood - Skin Skin Exam: Intact, Normal Color Results - Vital Signs Recent Vital Signs: Last Vital Signs Temp 98.8 F 08/02/17 08:00 Pulse 85 08/02/17 10:48 Resp 20 08/02/17 08:00 BP 121/75 08/02/17 10:48 Pulse Ox 96 08/02/17 08:00 - Labs Result Diagrams: 08/02/17 00:11 08/02/17 00:11 Labs: Laboratory Results - last 24 hr 08/02/17 08/02/17 08/02/17 00:11 00:11 00:53 WBC 14.6 H D RBC 3.66 L Hgb 10.7 L Hct 31.5 L MCV 86.2 MCH 29.4 MCHC 34.1 RDW 13.6 Plt Count 272 MPV 7.9 Neut % (Auto) 84.6 H Lymph % (Auto) 9.4 L [place] % (Auto) 5.1 Eos % (Auto) 0.4 Baso % (Auto) 0.5 Neut # 12.3 H Lymph # 1.4 [place] # 0.7 Eos # 0.1 Baso # 0.1 Neutrophils % (Manual) 87 H Lymphocytes % (Manual) 8 L Monocytes % (Manual) 5 Platelet Estimate Normal Anisocytosis (manual) Slight Sodium 136 Potassium 3.7 Chloride 103 Carbon Dioxide 20 L Anion Gap 17 BUN 38 H Creatinine 3.9 H Est GFR ( Amer) 14 Est GFR (Non-Af Amer) 12 POC Glucose (mg/dL) 45 L Random Glucose 53 L Calcium 7.8 L Total Bilirubin 0.4 AST 20 ALT 30 Alkaline Phosphatase 159 H Total Protein 5.6 L Albumin 3.0 L Globulin 2.6 Albumin/Globulin Ratio 1.2 08/02/17 08/02/17 08/02/17 01:27 01:57 02:40 WBC RBC Hgb Hct MCV MCH MCHC RDW Plt Count MPV Neut % (Auto) Lymph % (Auto) [place] % (Auto) Eos % (Auto) Baso % (Auto) Neut # Lymph # [place] # Eos # Baso # Neutrophils % (Manual) Lymphocytes % (Manual) Monocytes % (Manual) Platelet Estimate Anisocytosis (manual) Sodium Potassium Chloride Carbon Dioxide Anion Gap BUN Creatinine Est GFR ( Amer) Est GFR (Non-Af Amer) POC Glucose (mg/dL) 59 L 101 111 H Random Glucose Calcium Total Bilirubin AST ALT Alkaline Phosphatase Total Protein Albumin Globulin Albumin/Globulin Ratio 08/02/17 08/02/17 06:40 10:40 WBC RBC Hgb Hct MCV MCH MCHC RDW Plt Count MPV Neut % (Auto) Lymph % (Auto) [place] % (Auto) Eos % (Auto) Baso % (Auto) Neut # Lymph # [place] # Eos # Baso # Neutrophils % (Manual) Lymphocytes % (Manual) Monocytes % (Manual) Platelet Estimate Anisocytosis (manual) Sodium Potassium Chloride Carbon Dioxide Anion Gap BUN Creatinine Est GFR ( Amer) Est GFR (Non-Af Amer) POC Glucose (mg/dL) 93 265 H Random Glucose Calcium Total Bilirubin AST ALT Alkaline Phosphatase Total Protein Albumin Globulin Albumin/Globulin Ratio Assessment & Plan - Assessment and Plan (Free Text) Assessment: Patient with uncontrolled IDDM2- but had missed a day of insulin dose, sugar went up so high- patient injected more than ususal of Novolog and had hypoglycemia patient denies any other complaints Insulin education and DM discussion along with reports sugar on the 120's patient wishes to go home will sned home - with closer monitoring , and communication in the clinic and agreed to follow up with endocrine
--- NOTE | 2017-08-02 14:02 | CP.PCM.DIS ---
Provider - Provider Date of Admission: 08/02/17 01:06 Attending physician: Donna Melendez MD Time Spent in preparation of Discharge (in minutes): 30 Hospital Course - Lab Results Lab Results: Most Recent Lab Values WBC 14.6 K/uL (4.8-10.8) H D 08/02/17 00:11 RBC 3.66 Mil/uL (3.80-5.20) L 08/02/17 00:11 Hgb 10.7 g/dL (11.0-16.0) L 08/02/17 00:11 Hct 31.5 % (34.0-47.0) L 08/02/17 00:11 MCV 86.2 fL (81.0-99.0) 08/02/17 00:11 MCH 29.4 pg (27.0-31.0) 08/02/17 00:11 MCHC 34.1 g/dL (33.0-37.0) 08/02/17 00:11 RDW 13.6 % (11.5-14.5) 08/02/17 00:11 Plt Count 272 K/uL (130-400) 08/02/17 00:11 MPV 7.9 fL (7.2-11.7) 08/02/17 00:11 Neut % (Auto) 84.6 % (50.0-75.0) H 08/02/17 00:11 Lymph % (Auto) 9.4 % (20.0-40.0) L 08/02/17 00:11 [place] % (Auto) 5.1 % (0.0-10.0) 08/02/17 00:11 Eos % (Auto) 0.4 % (0.0-4.0) 08/02/17 00:11 Baso % (Auto) 0.5 % (0.0-2.0) 08/02/17 00:11 Neut # 12.3 K/uL (1.8-7.0) H 08/02/17 00:11 Lymph # 1.4 K/uL (1.0-4.3) 08/02/17 00:11 [place] # 0.7 K/uL (0.0-0.8) 08/02/17 00:11 Eos # 0.1 K/uL (0.0-0.7) 08/02/17 00:11 Baso # 0.1 K/uL (0.0-0.2) 08/02/17 00:11 Neutrophils % (Manual) 87 % (50-75) H 08/02/17 00:11 Lymphocytes % (Manual) 8 % (20-40) L 08/02/17 00:11 Monocytes % (Manual) 5 % (0-10) 08/02/17 00:11 Platelet Estimate Normal (NORMAL) 08/02/17 00:11 Anisocytosis (manual) Slight 08/02/17 00:11 Sodium 136 mmol/L (132-148) 08/02/17 00:11 Potassium 3.7 mmol/L (3.6-5.2) 08/02/17 00:11 Chloride 103 mmol/L (98-107) 08/02/17 00:11 Carbon Dioxide 20 mmol/L (22-30) L 08/02/17 00:11 Anion Gap 17 (10-20) 08/02/17 00:11 BUN 38 mg/dL (7-17) H 08/02/17 00:11 Creatinine 3.9 MG/DL (0.7-1.2) H 08/02/17 00:11 Est GFR ( Amer) 14 08/02/17 00:11 Est GFR (Non-Af Amer) 12 08/02/17 00:11 POC Glucose (mg/dL) 265 mg/dL (65-110) H 08/02/17 10:40 Random Glucose 53 mg/dL (65-105) L 08/02/17 00:11 Calcium 7.8 mg/dl (8.6-10.4) L 08/02/17 00:11 Total Bilirubin 0.4 mg/dL (0.2-1.3) 08/02/17 00:11 AST 20 U/L (14-36) 08/02/17 00:11 ALT 30 U/L (9-52) 08/02/17 00:11 Alkaline Phosphatase 159 U/L (38-126) H 08/02/17 00:11 Total Protein 5.6 g/dL (6.3-8.3) L 08/02/17 00:11 Albumin 3.0 g/dL (3.5-5.0) L 08/02/17 00:11 Globulin 2.6 gm/dL (2.2-3.9) 08/02/17 00:11 Albumin/Globulin Ratio 1.2 (1.0-2.1) 08/02/17 00:11 - Hospital Course Hospital Course: patient vcame to ER due to hypoglycemia followig Insulin Injection=apparently, patient forgot her insulin dose day before- and yesterdauy her sugar was so high she injected [place] and 60 units of Novolog to make up for the other day - hypoglycemia followed patient denies other medical problem- patient received Insulin and DM education Discharge Exam - Head Exam Head Exam: ATRAUMATIC, NORMOCEPHALIC - Eye Exam Eye Exam: Normal appearance - ENT Exam ENT Exam: Mucous Membranes Moist - Neck Exam Neck exam: Full Rom - Respiratory Exam Respiratory Exam: Clear to PA & Lateral, NORMAL BREATHING PATTERN - Cardiovascular Exam Cardiovascular Exam: REGULAR RHYTHM - GI/Abdominal Exam GI & Abdominal Exam: Normal Bowel Sounds, Soft. absent: Tenderness - Extremities Exam Extremities exam: full ROM (weak pulses ) - Back Exam Back exam: absent: tenderness - Neurological Exam Neurological exam: Alert, Normal Gait, Oriented x3, Reflexes Normal - Psychiatric Exam Psychiatric exam: Normal Affect, Normal Mood - Skin Skin Exam: Intact, Normal Color Discharge Plan - Follow Up Plan Condition: FAIR Disposition: HOME/ ROUTINE
[2017-08-02 14:30] LABS: BASO % 0.4 % (0.0-2.0); EOS # 0.1 K/uL (0.0-0.7); EOS % 0.9 % (0.0-4.0); HEMATOCRIT 29.8 % (34.0-47.0); LYMPH # 1.1 K/uL (1.0-4.3); LYMPH % 9.2 % (20.0-40.0); MEAN CORPUSCULAR HGB CONC 33.7 g/dL (33.0-37.0); MEAN PLATELET VOLUME 8.6 fL (7.2-11.7); MONO # 0.7 K/uL (0.0-0.8); MONO % 6.2 % (0.0-10.0); PLATELET COUNT 226 K/uL (130-400); RED CELL DISTRIBUTION WIDTH 13.5 % (11.5-14.5); WHITE BLOOD COUNT 12.1 K/uL (4.8-10.8)
[2017-08-02 15:18] LABS: EOSINOPHIL 1 % (0-4); NEUTROPHIL 90 % (50-75); TOTAL CELLS COUNTED 100
[2017-08-02 15:49] VITALS: BP 120/77; PULSE 87; TEMP 98.3; O2SAT 98
== END 2017-08-02 15:56 | disposition home or self-care (01) ==
LOC: C.ER 22:10 → C.5S 08-02 01:06
PROVIDERS: ADMIT Internal Medicine; ATTEND Internal Medicine
DX: E11.649 Type 2 diabetes mellitus with hypoglycemia without coma (principal); E78.5 Hyperlipidemia, unspecified; L03.115 Cellulitis of right lower limb; Z79.4 Long term (current) use of insulin; Z87.891 Personal history of nicotine dependence; E11.22 Type 2 diabetes mellitus with diabetic chronic kidney disease; E11.65 Type 2 diabetes mellitus with hyperglycemia; N18.2 Chronic kidney disease, stage 2 (mild)
CPT/HCPCS: 80053; 82948; 85025; 96365; 97116; 97162; G0378; G8978; G8979; J1644; J7040